=== PATIENT | female | born 1945 | race Caucasian/White ===

== ENCOUNTER 2019-12-09 07:21 | Outpatient (RCR) | payer MEDICARE, SELFPAY ==
[2019-09-11 09:09] LABS: Basophils Percent Auto 0.5 % (0.2-1.2); Eosinophils Absolute Auto 0.1 K/mm3 (0-0.3); Eosinophils Percent Auto 1.9 % (0-4.4); Hematocrit 43.9 % (37.0-47.0); Immature Granulocyte Absolute 0.01 K/mm3 (0.00-0.031); Immature Granulocyte Percent A 0.2 % (0-0.5); Lymphocytes Absolute Auto 0.91 K/mm3 (0.9-3.2); Lymphocytes Percent Auto 21.7 % (18.3-44.2); Mean Corpuscular HGB Conc 31.9 g/dl (32-36); Mean Corpuscular Hemoglobin 29.6 pg (26-34); Mean Corpuscular Volume 92.8 fl (80-100); Mean Platelet Volume 11.6 fl (7.4-10.4); Monocytes Absolute Auto 0.5 K/mm3 (0.1-0.6); Monocytes Percent Auto 12.1 % (2.6-8.5); Neutrophils Absolute Auto 2.7 K/mm3 (1.3-6.7); Neutrophils Percent Auto 63.6 % (45.5-73.1); Platelet Count Result 165 k/mm3 (150-375); Red Blood Count 4.73 M/mm3 (4.2-5.4); White Blood Count 4.2 K/mm3 (4.5-10.0)
[2019-09-11 09:38] LABS: Albumin Level 3.9 g/dL (3.5-5.1); Blood Urea Nitrogen 14 mg/dL (7-17); Calcium 9.5 mg/dL (8.4-10.2); Carbon Dioxide 26 mmol/L (22-30); Chloride 104 mmol/L (98-107); Estimated Glomerular Filt Rate > 60; Glucose 170 mg/dL (65-105); Phosphorus 3.1 mg/dL (2.5-4.5); Potassium 3.8 mmol/L (3.4-5.0); Sodium 138 mmol/L (137-145)
[2019-09-13 10:09] LABS: Tacrolimus Prograf 2.3 mcg/L
[2019-10-14 08:10] LABS: Basophils Percent Auto 0.7 % (0.2-1.2); Eosinophils Absolute Auto 0.1 K/mm3 (0-0.3); Eosinophils Percent Auto 2.7 % (0-4.4); Hematocrit 42.1 % (37.0-47.0); Hemoglobin 13.4 g/dL (12.0-15.0); Immature Granulocyte Absolute 0.01 K/mm3 (0.00-0.031); Immature Granulocyte Percent A 0.2 % (0-0.5); Lymphocytes Absolute Auto 1.16 K/mm3 (0.9-3.2); Lymphocytes Percent Auto 28.5 % (18.3-44.2); Mean Corpuscular HGB Conc 31.8 g/dl (32-36); Mean Corpuscular Hemoglobin 29.7 pg (26-34); Mean Corpuscular Volume 93.3 fl (80-100); Mean Platelet Volume 11.1 fl (7.4-10.4); Monocytes Absolute Auto 0.3 K/mm3 (0.1-0.6); Monocytes Percent Auto 7.9 % (2.6-8.5); Neutrophils Absolute Auto 2.4 K/mm3 (1.3-6.7); Platelet Count Result 166 k/mm3 (150-375); Red Blood Count 4.51 M/mm3 (4.2-5.4); Red Cell Distribution Width 13.6 % (11.5-14.5); White Blood Count 4.1 K/mm3 (4.5-10.0)
[2019-10-14 08:34] LABS: Blood Urea Nitrogen 15 mg/dL (7-17); Calcium 9.9 mg/dL (8.4-10.2); Carbon Dioxide 25 mmol/L (22-30); Chloride 103 mmol/L (98-107); Estimated Glomerular Filt Rate > 60; Glucose 157 mg/dL (65-105); Phosphorus 3.5 mg/dL (2.5-4.5); Potassium 4.1 mmol/L (3.4-5.0); Sodium 136 mmol/L (137-145)
[2019-10-17 06:14] LABS: Tacrolimus Prograf 3.8 mcg/L
[2019-12-09 08:03] LABS: Alanine Aminotransferase 16 U/L (4-35); Albumin Level 4.2 g/dL (3.5-5.1); Alkaline Phosphatase 48 U/L (38-126); Aspartate Amino Transferase 26 U/L (14-36); Bilirubin,Total 0.5 mg/dL (0.2-1.3); Blood Urea Nitrogen 12 mg/dL (7-17); Calcium 10.2 mg/dL (8.4-10.2); Carbon Dioxide 27 mmol/L (22-30); Chloride 104 mmol/L (98-107); Cholesterol 133 mg/dL (0-200); Estimated Glomerular Filt Rate > 60; Glucose 128 mg/dL (65-105); HDL Direct 79 mg/dL; Phosphorus 3.6 mg/dL (2.5-4.5); Potassium 4.2 mmol/L (3.4-5.0); Sodium 141 mmol/L (137-145); Triglycerides 45 mg/dL (<150)
[2019-12-09 08:04] LABS: Basophils Percent Auto 0.9 % (0.2-1.2); Eosinophils Absolute Auto 0.2 K/mm3 (0-0.3); Eosinophils Percent Auto 3.7 % (0-4.4); Hematocrit 45.1 % (37.0-47.0); Hemoglobin 14.8 g/dL (12.0-15.0); Lymphocytes Absolute Auto 1.39 K/mm3 (0.9-3.2); Lymphocytes Percent Auto 31.9 % (18.3-44.2); Mean Corpuscular HGB Conc 32.8 g/dl (32-36); Mean Corpuscular Hemoglobin 29.9 pg (26-34); Mean Corpuscular Volume 91.1 fl (80-100); Monocytes Absolute Auto 0.3 K/mm3 (0.1-0.6); Monocytes Percent Auto 6.4 % (2.6-8.5); Neutrophils Absolute Auto 2.5 K/mm3 (1.3-6.7); Neutrophils Percent Auto 57.1 % (45.5-73.1); Platelet Count Result 175 k/mm3 (150-375); Red Blood Count 4.95 M/mm3 (4.2-5.4); Red Cell Distribution Width 13.3 % (11.5-14.5); White Blood Count 4.4 K/mm3 (4.5-10.0)
[2019-12-09 08:13] LABS: LDL Cholesterol Direct 50 mg/dL
[2019-12-09 08:42] LABS: Hemoglobin A1C 7.4 % (<5.7)
[2019-12-11 00:48] LABS: Tacrolimus Prograf 3.9 mcg/L
== END 2019-12-10 23:59 | disposition home or self-care (01) ==
LOC: ANHLAB 07:21
PROVIDERS: PCP Family Medicine
DX: Z94.0 Kidney transplant status (principal); E78.49 Other hyperlipidemia; Z79.899 Other long term (current) drug therapy
CPT/HCPCS: 36415; 80053; 80061; 80069; 80197; 83036; 84100; 85025

== ENCOUNTER 2020-06-17 08:35 | Emergency (ER) | payer MEDICARE, SELFPAY ==
[2020-06-17 08:50] VITALS: BP 145/56; PULSE 78; RESP 18; TEMP 36.6; O2SAT 98
--- NOTE | 2020-06-17 08:52 | ED.UPPEXIN ---
HPI - Extremity Injury (Upper) General Chief Complaint: Extremity Injury, Upper Stated Complaint: Swollen/sore arm Source: patient and RN notes reviewed Mode of arrival: ambulatory Limitations: no limitations History of Present Illness HPI narrative: The patient, who is a right-handed diabetic with history of renal transplant, presents with left wrist pain. Patient states she has had a 1 day history of increasing radial> ulnar wrist pain that is mild, worse with motion, better at rest. She is been gardening all week, and has similar discomfort in her ankle about a year ago whereupon she had MRI showing ankle sprain and osteopenia. The wrist pain has no direct injury, numbness/weakness, streaking; and the proximal forearm fistula is doing well. Related Data Home Medications Medication Instructions Recorded Confirmed insulin lispro 100 unit/mL 15 unit SUB-Q DAILY ml 04/21/20 subcutaneous pen insulin lispro protamine-lispro See Rx Instructions .ROUTE .COMPLEX 04/21/20 100 unit/mL (75-25) subcutaneous pen mycophenolate sodium PO 06/17/20 prednisone 06/17/20 tacrolimus 06/17/20 valsartan 06/17/20 Allergies Allergy/AdvReac Type Severity Reaction Status Date / Time labetalol Allergy Unknown head itches Verified 04/13/20 15:40 Penicillins Allergy Unknown Nausea Verified 04/13/20 15:40 Review of Systems Review of Systems: Narrative: General/Constitutional: No weight loss,fever Eyes: N0: Redness,discharge Ears/Nose/Throat: No: Epistaxis,ear discharge Respiratory: Denies: Hemoptysis Gastrointestinal: No Vomiting, Bleeding-rectal Skin: No Lumps, eruption Neurologic: No Focal Weakness,Sz Hematologic: Denies: Petechiae/Purpura Psychiatric: No: Suicida ideationl All Other Systems: Reviewed and Negative PMFSH Social History Social History Smoking status: Never smoker Second hand tobacco smoke exposure: No Alcohol intake: never Comments At time of signature, agree with nursing past medical, surgical, social and family history. There is no relevant family history pertinent to the presenting complaint Exam Narrative: Exam Narrative: General Appearance: Well appearing, Well nourished, No distress EYE: PERRLA, EOMI, Conjunctiva clear Ears: External ear normal, Auditory canal normal Nose: Normal nose, Nares clear Mouth/Throat: Normal appearing, Normal lips Neck: Supple Respiratory: Airway patent, No respiratory distress MS wrist: Normal strength (mostly intact, limited flexion/extension by pain), Tenderness radial styloid> ulnar styloid, with mild decreased ROM,Scant swelling diffusely, Other : Positive Maryjane no anterior drawer, no collateral laxity Skin: Left forearm AV fistula with good thrill, warm, Dry, Normal color Neurological: A&O x3, Speech clear, CN II-XII intact Psychiatric: Normal mood, Normal affect Course Vital Signs Vital signs: Vital Signs Temperature 97.9 F 06/17/20 08:50 Pulse Rate 78 06/17/20 08:50 Respiratory Rate 18 06/17/20 08:50 Blood Pressure 145/56 H 06/17/20 08:50 Pulse Oximetry 98 06/17/20 08:50 Temperature 97.9 F 06/17/20 08:50 Pulse Rate 78 06/17/20 08:50 Respiratory Rate 18 06/17/20 08:50 Blood Pressure 145/56 H 06/17/20 08:50 Pulse Oximetry 98 06/17/20 08:50 Discharge Plan Discharge Clinical Impression: Left wrist tendinitis Osteopenia Qualifiers: Osteopenia location: multiple sites Qualified Code(s): M85.89 - Other specified disorders of bone density and structure, multiple sites Patient Disposition: Home, Self-Care Condition: Stable Instructions: Tendinitis (ED) Prescriptions: New tramadol 50 mg tablet 50 mg PO Q6H PRN (Reason: pain) Qty: 15 RF: 1 prednisone 20 mg tablet 60 mg PO DAILY Qty: 6 RF: 0 No Action prednisone 2.5 mg tablet RF: 0 tacrolimus 1 mg capsule RF: 0 valsartan 160 mg tablet
== END 2020-06-17 09:14 | disposition home or self-care (01) ==
PROVIDERS: Emergency Provider Emergency Medicine; PCP Family Medicine
DX: M77.9 Enthesopathy, unspecified (principal); M85.80 Other specified disorders of bone density and structure, unspecified site; E78.00 Pure hypercholesterolemia, unspecified; I10 Essential (primary) hypertension; E11.9 Type 2 diabetes mellitus without complications; Z94.0 Kidney transplant status
CPT/HCPCS: 99213; G0463

== ENCOUNTER 2020-07-20 07:27 | Outpatient (RCR) | payer MEDICARE, SELFPAY ==
[2020-04-21 07:50] LABS: Basophils Percent Auto 0.4 % (0.2-1.2); Eosinophils Absolute Auto 0.1 K/mm3 (0-0.3); Eosinophils Percent Auto 1.8 % (0-4.4); Hematocrit 45.1 % (37.0-47.0); Hemoglobin 14.8 g/dL (12.0-15.0); Immature Granulocyte Absolute 0.01 K/mm3 (0.00-0.031); Immature Granulocyte Percent A 0.2 % (0-0.5); Lymphocytes Absolute Auto 1.55 K/mm3 (0.9-3.2); Lymphocytes Percent Auto 34.1 % (18.3-44.2); Mean Corpuscular HGB Conc 32.8 g/dl (32-36); Mean Corpuscular Hemoglobin 30.2 pg (26-34); Mean Platelet Volume 11.2 fl (7.4-10.4); Monocytes Absolute Auto 0.3 K/mm3 (0.1-0.6); Monocytes Percent Auto 6.6 % (2.6-8.5); Neutrophils Absolute Auto 2.6 K/mm3 (1.3-6.7); Neutrophils Percent Auto 56.9 % (45.5-73.1); Platelet Count Result 172 k/mm3 (150-375); Red Cell Distribution Width 13.2 % (11.5-14.5); White Blood Count 4.6 K/mm3 (4.5-10.0)
[2020-04-21 08:03] LABS: Alanine Aminotransferase 15 U/L (4-35); Albumin Level 4.3 g/dL (3.5-5.1); Alkaline Phosphatase 48 U/L (38-126); Aspartate Amino Transferase 25 U/L (14-36); Bilirubin,Total 0.5 mg/dL (0.2-1.3); Blood Urea Nitrogen 13 mg/dL (7-17); Carbon Dioxide 27 mmol/L (22-30); Chloride 106 mmol/L (98-107); Cholesterol 130 mg/dL (0-200); Estimated Glomerular Filt Rate > 60; Glucose 170 mg/dL (65-105); HDL Direct 70 mg/dL; Hemoglobin A1C 7.8 % (<5.7); Phosphorus 3.1 mg/dL (2.5-4.5); Potassium 4.1 mmol/L (3.4-5.0); Sodium 139 mmol/L (137-145); Triglycerides 56 mg/dL (<150)
[2020-04-21 08:15] LABS: LDL Cholesterol Direct 50 mg/dL
[2020-04-23 17:44] LABS: Tacrolimus Prograf 3.7 mcg/L
[2020-05-19 08:04] LABS: Basophils Percent Auto 0.5 % (0.2-1.2); Eosinophils Absolute Auto 0.1 K/mm3 (0-0.3); Hematocrit 46.2 % (37.0-47.0); Lymphocytes Percent Auto 34.5 % (18.3-44.2); Mean Corpuscular HGB Conc 32.5 g/dl (32-36); Mean Corpuscular Hemoglobin 30.1 pg (26-34); Mean Corpuscular Volume 92.8 fl (80-100); Mean Platelet Volume 11.1 fl (7.4-10.4); Monocytes Absolute Auto 0.3 K/mm3 (0.1-0.6); Monocytes Percent Auto 6.9 % (2.6-8.5); Neutrophils Absolute Auto 2.4 K/mm3 (1.3-6.7); Neutrophils Percent Auto 55.1 % (45.5-73.1); Platelet Count Result 155 k/mm3 (150-375); Red Blood Count 4.98 M/mm3 (4.2-5.4); Red Cell Distribution Width 13.2 % (11.5-14.5); White Blood Count 4.4 K/mm3 (4.5-10.0)
[2020-05-19 08:24] LABS: Alanine Aminotransferase 17 U/L (4-35); Albumin Level 4.4 g/dL (3.5-5.1); Alkaline Phosphatase 43 U/L (38-126); Anion Gap 10.2 mmol/L (7-16); Aspartate Amino Transferase 26 U/L (14-36); Bilirubin,Total 0.4 mg/dL (0.2-1.3); Blood Urea Nitrogen 14 mg/dL (7-17); Calcium 10.1 mg/dL (8.4-10.2); Carbon Dioxide 27 mmol/L (22-30); Chloride 106 mmol/L (98-107); Cholesterol 139 mg/dL (0-200); Estimated Glomerular Filt Rate > 60; Glucose 160 mg/dL (65-105); HDL Direct 77 mg/dL; Phosphorus 3.3 mg/dL (2.5-4.5); Potassium 4.2 mmol/L (3.4-5.0); Sodium 139 mmol/L (137-145); Triglycerides 48 mg/dL (<150)
[2020-05-19 08:34] LABS: Hemoglobin A1C 7.4 % (<5.7)
[2020-05-19 08:34] LABS: LDL Cholesterol Direct 53 mg/dL
[2020-05-24 11:35] LABS: Tacrolimus Prograf 3.7 mcg/L
[2020-06-10 07:57] LABS: Basophils Percent Auto 0.6 % (0.2-1.2); Eosinophils Absolute Auto 0.1 K/mm3 (0-0.3); Eosinophils Percent Auto 2.2 % (0-4.4); Hematocrit 44.8 % (37.0-47.0); Hemoglobin 14.4 g/dL (12.0-15.0); Immature Granulocyte Absolute 0.01 K/mm3 (0.00-0.031); Immature Granulocyte Percent A 0.2 % (0-0.5); Lymphocytes Absolute Auto 1.72 K/mm3 (0.9-3.2); Lymphocytes Percent Auto 37.1 % (18.3-44.2); Mean Corpuscular HGB Conc 32.1 g/dl (32-36); Mean Corpuscular Hemoglobin 29.5 pg (26-34); Mean Corpuscular Volume 91.8 fl (80-100); Mean Platelet Volume 11.1 fl (7.4-10.4); Monocytes Absolute Auto 0.3 K/mm3 (0.1-0.6); Neutrophils Absolute Auto 2.5 K/mm3 (1.3-6.7); Neutrophils Percent Auto 53.9 % (45.5-73.1); Platelet Count Result 162 k/mm3 (150-375); Red Blood Count 4.88 M/mm3 (4.2-5.4); White Blood Count 4.6 K/mm3 (4.5-10.0)
[2020-06-10 08:11] LABS: Albumin Level 4.3 g/dL (3.5-5.1); Anion Gap 6 mmol/L (8-16); Blood Urea Nitrogen 14 mg/dL (7-17); Carbon Dioxide 26 mmol/L (22-30); Chloride 108 mmol/L (98-107); Estimated Glomerular Filt Rate > 60; Glucose 95 mg/dL (65-105); Phosphorus 3.2 mg/dL (2.5-4.5); Potassium 3.9 mmol/L (3.4-5.0); Sodium 140 mmol/L (137-145)
[2020-07-20 08:12] LABS: Basophils Percent Auto 0.4 % (0.2-1.2); Eosinophils Absolute Auto 0.1 K/mm3 (0-0.3); Eosinophils Percent Auto 1.8 % (0-4.4); Hematocrit 44.5 % (37.0-47.0); Hemoglobin 14.2 g/dL (12.0-15.0); Immature Granulocyte Absolute 0.01 K/mm3 (0.00-0.031); Immature Granulocyte Percent A 0.2 % (0-0.5); Lymphocytes Absolute Auto 1.22 K/mm3 (0.9-3.2); Lymphocytes Percent Auto 24.7 % (18.3-44.2); Mean Corpuscular HGB Conc 31.9 g/dl (32-36); Mean Corpuscular Hemoglobin 29.5 pg (26-34); Mean Corpuscular Volume 92.5 fl (80-100); Mean Platelet Volume 11.2 fl (7.4-10.4); Monocytes Absolute Auto 0.3 K/mm3 (0.1-0.6); Monocytes Percent Auto 5.7 % (2.6-8.5); Neutrophils Absolute Auto 3.3 K/mm3 (1.3-6.7); Neutrophils Percent Auto 67.2 % (45.5-73.1); Platelet Count Result 155 k/mm3 (150-375); Red Blood Count 4.81 M/mm3 (4.2-5.4); White Blood Count 4.9 K/mm3 (4.5-10.0)
[2020-07-20 08:34] LABS: Albumin Level 4.1 g/dL (3.5-5.1); Anion Gap 5 mmol/L (8-16); Blood Urea Nitrogen 12 mg/dL (7-17); Calcium 10.4 mg/dL (8.4-10.2); Carbon Dioxide 30 mmol/L (22-30); Chloride 107 mmol/L (98-107); Estimated Glomerular Filt Rate > 60; Glucose 126 mg/dL (65-105); Phosphorus 3.9 mg/dL (2.5-4.5); Potassium 4.1 mmol/L (3.4-5.0); Sodium 142 mmol/L (137-145)
[2020-07-22 18:50] LABS: Tacrolimus Prograf 3.4 mcg/L
== END 2020-07-20 23:59 | disposition home or self-care (01) ==
LOC: ANHLAB 07:27
PROVIDERS: Physician Assistant; PCP Family Medicine
DX: E78.49 Other hyperlipidemia (principal); Z94.0 Kidney transplant status; Z79.899 Other long term (current) drug therapy
CPT/HCPCS: 36415; 80053; 80061; 80069; 80197; 83036; 84100; 84443; 85025

== ENCOUNTER 2020-10-20 07:15 | Outpatient (RCR) | payer MEDICARE, SELFPAY ==
[2020-08-18 08:04] LABS: Basophils Percent Auto 0.7 % (0.2-1.2); Eosinophils Absolute Auto 0.1 K/mm3 (0-0.3); Eosinophils Percent Auto 1.8 % (0-4.4); Hematocrit 44.3 % (37.0-47.0); Hemoglobin 14.3 g/dL (12.0-15.0); Immature Granulocyte Absolute 0.01 K/mm3 (0.00-0.031); Immature Granulocyte Percent A 0.2 % (0-0.5); Lymphocytes Absolute Auto 1.56 K/mm3 (0.9-3.2); Lymphocytes Percent Auto 34.7 % (18.3-44.2); Mean Corpuscular HGB Conc 32.3 g/dl (32-36); Mean Corpuscular Hemoglobin 30.2 pg (26-34); Mean Corpuscular Volume 93.7 fl (80-100); Mean Platelet Volume 11.1 fl (7.4-10.4); Monocytes Absolute Auto 0.3 K/mm3 (0.1-0.6); Monocytes Percent Auto 6.4 % (2.6-8.5); Neutrophils Absolute Auto 2.5 K/mm3 (1.3-6.7); Neutrophils Percent Auto 56.2 % (45.5-73.1); Platelet Count Result 153 k/mm3 (150-375); Red Blood Count 4.73 M/mm3 (4.2-5.4); Red Cell Distribution Width 13.3 % (11.5-14.5); White Blood Count 4.5 K/mm3 (4.5-10.0)
[2020-08-18 08:15] LABS: Hemoglobin A1C 7.3 % (<5.7)
[2020-08-18 08:21] LABS: Alanine Aminotransferase 17 U/L (4-35); Alkaline Phosphatase 46 U/L (38-126); Anion Gap 4 mmol/L (8-16); Aspartate Amino Transferase 28 U/L (14-36); Bilirubin,Total 0.5 mg/dL (0.2-1.3); Blood Urea Nitrogen 14 mg/dL (7-17); Calcium 9.9 mg/dL (8.4-10.2); Carbon Dioxide 30 mmol/L (22-30); Chloride 106 mmol/L (98-107); Cholesterol 121 mg/dL (0-200); Estimated Glomerular Filt Rate > 60; Glucose 161 mg/dL (65-105); HDL Direct 68 mg/dL; Phosphorus 3.4 mg/dL (2.5-4.5); Potassium 3.9 mmol/L (3.4-5.0); Sodium 140 mmol/L (137-145); Triglycerides 59 mg/dL (<150)
[2020-08-18 08:31] LABS: LDL Cholesterol Direct 45 mg/dL
[2020-08-20 20:36] LABS: Tacrolimus Prograf 2.9 mcg/L
[2020-09-15 07:53] LABS: Basophils Percent Auto 0.7 % (0.2-1.2); Eosinophils Absolute Auto 0.1 K/mm3 (0-0.3); Eosinophils Percent Auto 1.8 % (0-4.4); Hemoglobin 14.1 g/dL (12.0-15.0); Immature Granulocyte Absolute 0.01 K/mm3 (0.00-0.031); Immature Granulocyte Percent A 0.2 % (0-0.5); Lymphocytes Absolute Auto 1.39 K/mm3 (0.9-3.2); Lymphocytes Percent Auto 31.5 % (18.3-44.2); Mean Corpuscular Hemoglobin 29.9 pg (26-34); Mean Corpuscular Volume 93.2 fl (80-100); Mean Platelet Volume 10.4 fl (7.4-10.4); Monocytes Absolute Auto 0.3 K/mm3 (0.1-0.6); Monocytes Percent Auto 6.8 % (2.6-8.5); Neutrophils Absolute Auto 2.6 K/mm3 (1.3-6.7); Platelet Count Result 152 k/mm3 (150-375); Red Blood Count 4.72 M/mm3 (4.2-5.4); Red Cell Distribution Width 13.5 % (11.5-14.5); White Blood Count 4.4 K/mm3 (4.5-10.0)
[2020-09-15 08:02] LABS: Hemoglobin A1C 7.5 % (<5.7)
[2020-09-15 08:05] LABS: Alanine Aminotransferase 18 U/L (4-35); Albumin Level 4.1 g/dL (3.5-5.1); Alkaline Phosphatase 42 U/L (38-126); Anion Gap 4 mmol/L (8-16); Aspartate Amino Transferase 28 U/L (14-36); Bilirubin,Total 0.4 mg/dL (0.2-1.3); Blood Urea Nitrogen 12 mg/dL (7-17); Calcium 9.9 mg/dL (8.4-10.2); Carbon Dioxide 30 mmol/L (22-30); Chloride 106 mmol/L (98-107); Estimated Glomerular Filt Rate > 60; Glucose 187 mg/dL (65-105); Phosphorus 3.3 mg/dL (2.5-4.5); Potassium 4.4 mmol/L (3.4-5.0); Sodium 140 mmol/L (137-145)
[2020-09-17 22:05] LABS: Tacrolimus Prograf 2.9 mcg/L
[2020-10-20 07:54] LABS: Basophils Percent Auto 0.4 % (0.2-1.2); Eosinophils Absolute Auto 0.1 K/mm3 (0-0.3); Eosinophils Percent Auto 1.9 % (0-4.4); Hematocrit 42.6 % (37.0-47.0); Hemoglobin 13.8 g/dL (12.0-15.0); Immature Granulocyte Absolute 0.01 K/mm3 (0.00-0.031); Immature Granulocyte Percent A 0.2 % (0-0.5); Lymphocytes Absolute Auto 1.32 K/mm3 (0.9-3.2); Lymphocytes Percent Auto 25.3 % (18.3-44.2); Mean Corpuscular HGB Conc 32.4 g/dl (32-36); Mean Corpuscular Hemoglobin 29.7 pg (26-34); Mean Corpuscular Volume 91.8 fl (80-100); Mean Platelet Volume 10.8 fl (7.4-10.4); Monocytes Absolute Auto 0.4 K/mm3 (0.1-0.6); Monocytes Percent Auto 7.3 % (2.6-8.5); Neutrophils Absolute Auto 3.4 K/mm3 (1.3-6.7); Neutrophils Percent Auto 64.9 % (45.5-73.1); Platelet Count Result 177 k/mm3 (150-375); Red Blood Count 4.64 M/mm3 (4.2-5.4); Red Cell Distribution Width 13.2 % (11.5-14.5); White Blood Count 5.2 K/mm3 (4.5-10.0)
[2020-10-20 08:10] LABS: Albumin Level 3.9 g/dL (3.5-5.1); Anion Gap 5 mmol/L (8-16); Blood Urea Nitrogen 12 mg/dL (7-17); Calcium 9.8 mg/dL (8.4-10.2); Carbon Dioxide 29 mmol/L (22-30); Chloride 105 mmol/L (98-107); Estimated Glomerular Filt Rate > 60; Glucose 227 mg/dL (65-105); Phosphorus 3.2 mg/dL (2.5-4.5); Potassium 4.1 mmol/L (3.4-5.0); Sodium 139 mmol/L (137-145)
[2020-10-20 08:41] LABS: Free T4 Free Thyroxine 1.14 ng/mL (0.78-2.19)
[2020-10-23 00:05] LABS: Tacrolimus Prograf 2.5 mcg/L
== END 2020-11-16 23:59 | disposition home or self-care (01) ==
LOC: ANHLAB 07:15
PROVIDERS: PCP Family Medicine; Referring Provider Internal Medicine Endocrinology, Diabetes & Metabolism
DX: E10.65 Type 1 diabetes mellitus with hyperglycemia (principal); E78.2 Mixed hyperlipidemia; Z94.0 Kidney transplant status; Z79.899 Other long term (current) drug therapy
CPT/HCPCS: 36415; 80053; 80061; 80069; 80197; 83036; 84100; 84439; 84443; 85025

== ENCOUNTER 2021-01-19 07:25 | Outpatient (RCR) | payer MEDICARE, SELFPAY ==
[2020-11-17 07:42] LABS: Basophils Percent Auto 0.4 % (0.2-1.2); Eosinophils Absolute Auto 0.1 K/mm3 (0-0.3); Eosinophils Percent Auto 2.4 % (0-4.4); Hematocrit 45.8 % (37.0-47.0); Hemoglobin 14.9 g/dL (12.0-15.0); Immature Granulocyte Absolute 0.01 K/mm3 (0.00-0.031); Immature Granulocyte Percent A 0.2 % (0-0.5); Lymphocytes Absolute Auto 1.39 K/mm3 (0.9-3.2); Lymphocytes Percent Auto 30.9 % (18.3-44.2); Mean Corpuscular HGB Conc 32.5 g/dl (32-36); Mean Corpuscular Volume 92.2 fl (80-100); Mean Platelet Volume 10.8 fl (7.4-10.4); Monocytes Absolute Auto 0.3 K/mm3 (0.1-0.6); Monocytes Percent Auto 7.3 % (2.6-8.5); Neutrophils Absolute Auto 2.6 K/mm3 (1.3-6.7); Neutrophils Percent Auto 58.8 % (45.5-73.1); Platelet Count Result 158 k/mm3 (150-375); Red Blood Count 4.97 M/mm3 (4.2-5.4); Red Cell Distribution Width 13.1 % (11.5-14.5); White Blood Count 4.5 K/mm3 (4.5-10.0)
[2020-11-17 07:47] LABS: Alanine Aminotransferase 18 U/L (4-35); Alkaline Phosphatase 49 U/L (38-126); Anion Gap 5 mmol/L (8-16); Aspartate Amino Transferase 25 U/L (14-36); Bilirubin,Total 0.6 mg/dL (0.2-1.3); Blood Urea Nitrogen 14 mg/dL (7-17); Calcium 10.2 mg/dL (8.4-10.2); Carbon Dioxide 30 mmol/L (22-30); Chloride 103 mmol/L (98-107); Cholesterol 131 mg/dL (0-200); Estimated Glomerular Filt Rate > 60; Glucose 227 mg/dL (65-105); HDL Direct 71 mg/dL; Phosphorus 3.4 mg/dL (2.5-4.5); Potassium 4.1 mmol/L (3.4-5.0); Sodium 138 mmol/L (137-145); Triglycerides 65 mg/dL (<150)
[2020-11-17 07:57] LABS: LDL Cholesterol Direct 46 mg/dL
[2020-11-19 07:28] LABS: Tacrolimus Prograf 3.2 mcg/L
[2020-12-15 07:41] LABS: Basophils Percent Auto 0.6 % (0.2-1.2); Eosinophils Absolute Auto 0.2 K/mm3 (0-0.3); Eosinophils Percent Auto 3.3 % (0-4.4); Hematocrit 44.7 % (37.0-47.0); Hemoglobin 14.5 g/dL (12.0-15.0); Immature Granulocyte Absolute 0.01 K/mm3 (0.00-0.031); Immature Granulocyte Percent A 0.2 % (0-0.5); Lymphocytes Absolute Auto 1.57 K/mm3 (0.9-3.2); Lymphocytes Percent Auto 30.8 % (18.3-44.2); Mean Corpuscular HGB Conc 32.4 g/dl (32-36); Mean Corpuscular Hemoglobin 29.7 pg (26-34); Mean Corpuscular Volume 91.6 fl (80-100); Monocytes Absolute Auto 0.4 K/mm3 (0.1-0.6); Monocytes Percent Auto 7.3 % (2.6-8.5); Neutrophils Absolute Auto 2.9 K/mm3 (1.3-6.7); Neutrophils Percent Auto 57.8 % (45.5-73.1); Platelet Count Result 162 k/mm3 (150-375); Red Blood Count 4.88 M/mm3 (4.2-5.4); Red Cell Distribution Width 13.3 % (11.5-14.5); White Blood Count 5.1 K/mm3 (4.5-10.0)
[2020-12-15 07:56] LABS: Alanine Aminotransferase 16 U/L (4-35); Albumin Level 4.1 g/dL (3.5-5.1); Alkaline Phosphatase 42 U/L (38-126); Anion Gap 4 mmol/L (8-16); Aspartate Amino Transferase 26 U/L (14-36); Bilirubin,Total 0.5 mg/dL (0.2-1.3); Blood Urea Nitrogen 14 mg/dL (7-17); Calcium 9.4 mg/dL (8.4-10.2); Carbon Dioxide 28 mmol/L (22-30); Chloride 107 mmol/L (98-107); Cholesterol 137 mg/dL (0-200); Estimated Glomerular Filt Rate > 60; Glucose 157 mg/dL (65-105); HDL Direct 76 mg/dL; Phosphorus 3.6 mg/dL (2.5-4.5); Potassium 4.1 mmol/L (3.4-5.0); Sodium 139 mmol/L (137-145); Triglycerides 54 mg/dL (<150)
[2020-12-15 07:58] LABS: Hemoglobin A1C 7.5 % (<5.7)
[2020-12-15 08:05] LABS: LDL Cholesterol Direct 45 mg/dL
[2020-12-17 17:59] LABS: Tacrolimus Prograf 3.5 mcg/L
[2021-01-19 07:54] LABS: Basophils Percent Auto 0.6 % (0.2-1.2); Eosinophils Absolute Auto 0.1 K/mm3 (0-0.3); Eosinophils Percent Auto 2.3 % (0-4.4); Hematocrit 43.3 % (37.0-47.0); Hemoglobin 13.9 g/dL (12.0-15.0); Immature Granulocyte Absolute 0.01 K/mm3 (0.00-0.031); Immature Granulocyte Percent A 0.2 % (0-0.5); Lymphocytes Absolute Auto 1.48 K/mm3 (0.9-3.2); Lymphocytes Percent Auto 30.3 % (18.3-44.2); Mean Corpuscular HGB Conc 32.1 g/dl (32-36); Mean Corpuscular Hemoglobin 29.6 pg (26-34); Mean Corpuscular Volume 92.3 fl (80-100); Mean Platelet Volume 11.1 fl (7.4-10.4); Monocytes Absolute Auto 0.4 K/mm3 (0.1-0.6); Monocytes Percent Auto 7.6 % (2.6-8.5); Neutrophils Absolute Auto 2.9 K/mm3 (1.3-6.7); Platelet Count Result 152 k/mm3 (150-375); Red Blood Count 4.69 M/mm3 (4.2-5.4); Red Cell Distribution Width 13.3 % (11.5-14.5); White Blood Count 4.9 K/mm3 (4.5-10.0)
[2021-01-19 08:08] LABS: Anion Gap 4 mmol/L (8-16); Blood Urea Nitrogen 15 mg/dL (7-17); Carbon Dioxide 27 mmol/L (22-30); Chloride 108 mmol/L (98-107); Estimated Glomerular Filt Rate > 60; Glucose 138 mg/dL (65-105); Phosphorus 3.4 mg/dL (2.5-4.5); Sodium 139 mmol/L (137-145)
[2021-01-21 15:09] LABS: Tacrolimus Prograf 3.3 mcg/L
== END 2021-02-15 23:59 | disposition home or self-care (01) ==
LOC: ANHLAB 07:25
PROVIDERS: Family Provider Family Medicine; PCP Family Medicine
DX: Z94.0 Kidney transplant status (principal); E10.65 Type 1 diabetes mellitus with hyperglycemia; Z79.899 Other long term (current) drug therapy
CPT/HCPCS: 36415; 80053; 80061; 80069; 80197; 83036; 84100; 85025

== ENCOUNTER 2021-03-31 12:43 | Outpatient (CLI) | payer MEDICARE, SELFPAY ==
--- NOTE | 2021-03-31 12:54 | ECHO_ITS ---
Patient Info Name: Lisy Pandey Age: 75 years : 1945 Gender: Female Ht: 66 in Wt: 145 lbs BSA: 1.76 m2 HR: 66 bpm BP: 171 / 74 mmHg Technical Quality: Good Exam Date: 03/31/2021 1:15 PM Exam Location: [facility] Patient Status: Outpatient Admit Date: 03/31/2021 Staff Ordering Physician: Osbaldo Huff MD Cataloging Assistant: Lata Perez RDCS Attending Provider: Osbaldo Huff MD Referring Physician: Daria ALANIZ; Exam Type: CA echo doppler color flow Study Info Indications - nonrheumatic aortic valve disorder Complete two-dimensional, color flow and Doppler transthoracic echocardiogram is performed. Summary 1. Complete two-dimensional, color flow and Doppler transthoracic echocardiogram is performed. 2. Left ventricular chamber dimension is normal. 3. Left ventricular systolic function is hyperdynamic, estimated at >70%. 4. There is mildly increased left ventricular wall thickness. 5. The left ventricular diastolic function is grade I diastolic dysfunction. 6. E/e' 14 is mildly elevated. 7. Left atrial chamber dimension is mildly enlarged. 8. There is trace mitral valve regurgitation. 9. No pulmonary hypertension, estimated pulmonary arterial systolic pressure is 35 mmHg. 10. There is loculated right sided small to moderate pericardial effusion measuring up to 1.1 cm. This is seen only in parasternal images but not in subcostal images. No cardiac tamponade. Left Ventricle E/e' 14 is mildly elevated. Left ventricular chamber dimension is normal. Left ventricular systolic function is hyperdynamic, estimated at >70%. There is mildly increased left ventricular wall thickness. The left ventricular diastolic function is grade I diastolic dysfunction. Right Ventricle Right ventricular chamber dimension is normal. Right ventricular systolic function is normal. Left Atria Left atrial chamber dimension is mildly enlarged. Right Atria Right atrial chamber dimension is normal. Aortic Valve The aortic valve is trileaflet. There is no aortic valve stenosis. There is no aortic valve regurgitation. Pulmonic Valve There is no pulmonic regurgitation. Mitral Valve There is no mitral valve stenosis. There is trace mitral valve regurgitation. Tricuspid Valve There is no tricuspid valve regurgitation. No pulmonary hypertension, estimated pulmonary arterial systolic pressure is 35 mmHg. Pericardium/Pleural There is loculated right sided small to moderate pericardial effusion measuring up to 1.1 cm. This is seen only in parasternal images but not in subcostal images. No cardiac tamponade. Inferior Vena Cava Normal inferior vena cava with >50% collapse upon inspiration consistent with normal right atrial pressure, 5 mmHg. Aorta The aortic root size at the sinus of Valsalva is normal. Left Ventricular Outflow Tract Name Value Normal LVOT 2D LVOT Diameter 2.0 cm LVOT Doppler LVOT Peak Gradient 10 mmHg LVOT Mean Gradient 6 mmHg LVOT VTI 32 cm LVOT VTI/AV VTI Ratio
== END 2021-03-31 12:44 | disposition home or self-care (01) ==
LOC: ANHCARD 12:45
PROVIDERS: PCP Family Medicine; Visit Provider Family Medicine
DX: I35.8 Other nonrheumatic aortic valve disorders (principal)
CPT/HCPCS: 93306

== ENCOUNTER 2021-04-20 07:10 | Outpatient (RCR) | payer MEDICARE, SELFPAY ==
[2021-02-16 08:29] LABS: Basophils Percent Auto 0.4 % (0.2-1.2); Eosinophils Absolute Auto 0.1 K/mm3 (0-0.3); Eosinophils Percent Auto 2.7 % (0-4.4); Hematocrit 43.3 % (37.0-47.0); Hemoglobin 13.8 g/dL (12.0-15.0); Immature Granulocyte Absolute 0.02 K/mm3 (0.00-0.031); Immature Granulocyte Percent A 0.4 % (0-0.5); Lymphocytes Absolute Auto 1.23 K/mm3 (0.9-3.2); Lymphocytes Percent Auto 27.5 % (18.3-44.2); Mean Corpuscular HGB Conc 31.9 g/dl (32-36); Mean Corpuscular Hemoglobin 29.9 pg (26-34); Mean Corpuscular Volume 93.9 fl (80-100); Mean Platelet Volume 11.2 fl (7.4-10.4); Monocytes Absolute Auto 0.4 K/mm3 (0.1-0.6); Monocytes Percent Auto 8.3 % (2.6-8.5); Neutrophils Absolute Auto 2.7 K/mm3 (1.3-6.7); Neutrophils Percent Auto 60.7 % (45.5-73.1); Platelet Count Result 148 k/mm3 (150-375); Red Blood Count 4.61 M/mm3 (4.2-5.4); Red Cell Distribution Width 13.4 % (11.5-14.5); White Blood Count 4.5 K/mm3 (4.5-10.0)
[2021-02-16 08:39] LABS: Alanine Aminotransferase 15 U/L (4-35); Albumin Level 3.8 g/dL (3.5-5.1); Alkaline Phosphatase 38 U/L (38-126); Anion Gap 4 mmol/L (8-16); Aspartate Amino Transferase 22 U/L (14-36); Bilirubin,Total 0.3 mg/dL (0.2-1.3); Blood Urea Nitrogen 16 mg/dL (7-17); Calcium 9.8 mg/dL (8.4-10.2); Carbon Dioxide 26 mmol/L (22-30); Chloride 110 mmol/L (98-107); Cholesterol 118 mg/dL (0-200); Estimated Glomerular Filt Rate > 60; Glucose 126 mg/dL (65-105); HDL Direct 71 mg/dL; Phosphorus 3.5 mg/dL (2.5-4.5); Potassium 3.8 mmol/L (3.4-5.0); Sodium 140 mmol/L (137-145); Triglycerides 38 mg/dL (<150)
[2021-02-16 08:42] LABS: Hemoglobin A1C 8.2 % (<5.7)
[2021-02-16 08:50] LABS: LDL Cholesterol Direct 37 mg/dL
[2021-02-19 06:42] LABS: Tacrolimus Prograf 2.8 mcg/L
[2021-03-16 08:12] LABS: Basophils Percent Auto 0.7 % (0.2-1.2); Eosinophils Absolute Auto 0.1 K/mm3 (0-0.3); Hematocrit 42.7 % (37.0-47.0); Hemoglobin 13.9 g/dL (12.0-15.0); Immature Granulocyte Absolute 0.01 K/mm3 (0.00-0.031); Immature Granulocyte Percent A 0.2 % (0-0.5); Lymphocytes Absolute Auto 1.34 K/mm3 (0.9-3.2); Lymphocytes Percent Auto 29.1 % (18.3-44.2); Mean Corpuscular HGB Conc 32.6 g/dl (32-36); Mean Corpuscular Hemoglobin 29.8 pg (26-34); Mean Corpuscular Volume 91.6 fl (80-100); Mean Platelet Volume 11.1 fl (7.4-10.4); Monocytes Absolute Auto 0.3 K/mm3 (0.1-0.6); Monocytes Percent Auto 6.9 % (2.6-8.5); Neutrophils Absolute Auto 2.8 K/mm3 (1.3-6.7); Neutrophils Percent Auto 61.1 % (45.5-73.1); Platelet Count Result 158 k/mm3 (150-375); Red Blood Count 4.66 M/mm3 (4.2-5.4); Red Cell Distribution Width 13.2 % (11.5-14.5); White Blood Count 4.6 K/mm3 (4.5-10.0)
[2021-03-16 08:30] LABS: Anion Gap 5 mmol/L (8-16); Blood Urea Nitrogen 18 mg/dL (7-17); Calcium 9.9 mg/dL (8.4-10.2); Carbon Dioxide 28 mmol/L (22-30); Chloride 108 mmol/L (98-107); Estimated Glomerular Filt Rate > 60; Glucose 164 mg/dL (65-105); Phosphorus 3.4 mg/dL (2.5-4.5); Potassium 4.1 mmol/L (3.4-5.0); Sodium 141 mmol/L (137-145)
[2021-03-18 11:26] LABS: Tacrolimus Prograf 2.8 mcg/L
[2021-04-20 08:16] LABS: Basophils Percent Auto 0.5 % (0.2-1.2); Eosinophils Absolute Auto 0.1 K/mm3 (0-0.3); Eosinophils Percent Auto 1.7 % (0-4.4); Hematocrit 41.7 % (37.0-47.0); Hemoglobin 13.6 g/dL (12.0-15.0); Immature Granulocyte Absolute 0.02 K/mm3 (0.00-0.031); Immature Granulocyte Percent A 0.5 % (0-0.5); Lymphocytes Absolute Auto 1.45 K/mm3 (0.9-3.2); Lymphocytes Percent Auto 34.3 % (18.3-44.2); Mean Corpuscular HGB Conc 32.6 g/dl (32-36); Mean Corpuscular Volume 91.9 fl (80-100); Mean Platelet Volume 11.2 fl (7.4-10.4); Monocytes Absolute Auto 0.4 K/mm3 (0.1-0.6); Monocytes Percent Auto 8.3 % (2.6-8.5); Neutrophils Absolute Auto 2.3 K/mm3 (1.3-6.7); Neutrophils Percent Auto 54.7 % (45.5-73.1); Platelet Count Result 149 k/mm3 (150-375); Red Blood Count 4.54 M/mm3 (4.2-5.4); Red Cell Distribution Width 13.2 % (11.5-14.5); White Blood Count 4.2 K/mm3 (4.5-10.0)
[2021-04-20 08:25] LABS: Alanine Aminotransferase 13 U/L (4-35); Albumin Level 4.1 g/dL (3.5-5.1); Alkaline Phosphatase 38 U/L (38-126); Anion Gap 7 mmol/L (8-16); Aspartate Amino Transferase 23 U/L (14-36); Bilirubin,Total 0.6 mg/dL (0.2-1.3); Blood Urea Nitrogen 14 mg/dL (7-17); Calcium 9.9 mg/dL (8.4-10.2); Carbon Dioxide 24 mmol/L (22-30); Chloride 109 mmol/L (98-107); Cholesterol 121 mg/dL (0-200); Estimated Glomerular Filt Rate > 60; Glucose 201 mg/dL (65-105); HDL Direct 64 mg/dL; Phosphorus 2.9 mg/dL (2.5-4.5); Potassium 3.9 mmol/L (3.4-5.0); Sodium 140 mmol/L (137-145); Triglycerides 51 mg/dL (<150)
[2021-04-20 08:36] LABS: LDL Cholesterol Direct 43 mg/dL
[2021-04-20 09:18] LABS: Hemoglobin A1C 8.1 % (<5.7)
[2021-04-22 17:59] LABS: Tacrolimus Prograf 2.9 mcg/L
== END 2021-05-17 23:59 | disposition home or self-care (01) ==
LOC: ANHLAB 07:10
PROVIDERS: PCP Family Medicine; Visit Provider Internal Medicine
DX: E10.65 Type 1 diabetes mellitus with hyperglycemia (principal); Z94.0 Kidney transplant status; E78.2 Mixed hyperlipidemia; Z79.899 Other long term (current) drug therapy
CPT/HCPCS: 36415; 80053; 80061; 80069; 80197; 83036; 85025

== ENCOUNTER 2021-07-19 07:11 | Outpatient (RCR) | payer MEDICARE, SELFPAY ==
[2021-05-18 07:56] LABS: Basophils Percent Auto 0.7 % (0.2-1.2); Eosinophils Absolute Auto 0.1 K/mm3 (0-0.3); Eosinophils Percent Auto 2.5 % (0-4.4); Hematocrit 43.9 % (37.0-47.0); Hemoglobin 13.8 g/dL (12.0-15.0); Immature Granulocyte Absolute 0.01 K/mm3 (0.00-0.031); Immature Granulocyte Percent A 0.2 % (0-0.5); Lymphocytes Absolute Auto 1.46 K/mm3 (0.9-3.2); Lymphocytes Percent Auto 32.7 % (18.3-44.2); Mean Corpuscular HGB Conc 31.4 g/dl (32-36); Mean Corpuscular Hemoglobin 29.4 pg (26-34); Mean Corpuscular Volume 93.6 fl (80-100); Mean Platelet Volume 10.9 fl (7.4-10.4); Monocytes Absolute Auto 0.3 K/mm3 (0.1-0.6); Monocytes Percent Auto 6.7 % (2.6-8.5); Neutrophils Absolute Auto 2.6 K/mm3 (1.3-6.7); Neutrophils Percent Auto 57.2 % (45.5-73.1); Platelet Count Result 144 k/mm3 (150-375); Red Blood Count 4.69 M/mm3 (4.2-5.4); Red Cell Distribution Width 13.6 % (11.5-14.5); White Blood Count 4.5 K/mm3 (4.5-10.0)
[2021-05-18 08:08] LABS: Alanine Aminotransferase 18 U/L (4-35); Albumin Level 4.1 g/dL (3.5-5.1); Alkaline Phosphatase 41 U/L (38-126); Anion Gap 5 mmol/L (8-16); Aspartate Amino Transferase 26 U/L (14-36); Bilirubin,Total 0.5 mg/dL (0.2-1.3); Blood Urea Nitrogen 11 mg/dL (7-17); Calcium 9.8 mg/dL (8.4-10.2); Carbon Dioxide 27 mmol/L (22-30); Chloride 107 mmol/L (98-107); Cholesterol 128 mg/dL (0-200); Estimated Glomerular Filt Rate > 60; Glucose 160 mg/dL (65-110); HDL Direct 76 mg/dL; Phosphorus 3.5 mg/dL (2.5-4.5); Sodium 139 mmol/L (137-145); Triglycerides 42 mg/dL (<150)
[2021-05-18 08:19] LABS: LDL Cholesterol Direct 40 mg/dL
[2021-05-18 08:23] LABS: Hemoglobin A1C 8.2 % (<5.7)
[2021-05-21 08:50] LABS: Tacrolimus Prograf 3.1 mcg/L
[2021-06-15 08:31] LABS: Basophils Percent Auto 0.8 % (0.2-1.2); Eosinophils Absolute Auto 0.1 K/mm3 (0-0.3); Eosinophils Percent Auto 2.3 % (0-4.4); Hematocrit 44.1 % (37.0-47.0); Hemoglobin 13.9 g/dL (12.0-15.0); Immature Granulocyte Absolute 0.01 K/mm3 (0.00-0.031); Immature Granulocyte Percent A 0.3 % (0-0.5); Lymphocytes Absolute Auto 1.29 K/mm3 (0.9-3.2); Lymphocytes Percent Auto 32.8 % (18.3-44.2); Mean Corpuscular HGB Conc 31.5 g/dl (32-36); Mean Corpuscular Hemoglobin 29.4 pg (26-34); Mean Corpuscular Volume 93.2 fl (80-100); Mean Platelet Volume 11.1 fl (7.4-10.4); Monocytes Absolute Auto 0.3 K/mm3 (0.1-0.6); Monocytes Percent Auto 7.1 % (2.6-8.5); Neutrophils Absolute Auto 2.2 K/mm3 (1.3-6.7); Neutrophils Percent Auto 56.7 % (45.5-73.1); Platelet Count Result 164 k/mm3 (150-375); Red Blood Count 4.73 M/mm3 (4.2-5.4); White Blood Count 3.9 K/mm3 (4.5-10.0)
[2021-06-15 08:53] LABS: Alanine Aminotransferase 15 U/L (4-35); Albumin Level 4.1 g/dL (3.5-5.1); Alkaline Phosphatase 43 U/L (38-126); Anion Gap 4 mmol/L (8-16); Aspartate Amino Transferase 22 U/L (14-36); Bilirubin,Total 0.8 mg/dL (0.2-1.3); Blood Urea Nitrogen 14 mg/dL (7-17); Calcium 9.9 mg/dL (8.4-10.2); Carbon Dioxide 27 mmol/L (22-30); Chloride 107 mmol/L (98-107); Cholesterol 131 mg/dL (0-200); Estimated Glomerular Filt Rate > 60; Glucose 217 mg/dL (65-110); HDL Direct 72 mg/dL; Potassium 4.3 mmol/L (3.4-5.0); Sodium 138 mmol/L (137-145); Triglycerides 52 mg/dL (<150)
[2021-06-15 09:06] LABS: LDL Cholesterol Direct 45 mg/dL
[2021-06-15 09:33] LABS: Hemoglobin A1C 8.6 % (<5.7)
[2021-06-17 12:04] LABS: Tacrolimus Prograf 3.7 mcg/L
[2021-07-19 07:46] LABS: Basophils Percent Auto 0.4 % (0.2-1.2); Eosinophils Absolute Auto 0.1 K/mm3 (0-0.3); Eosinophils Percent Auto 1.6 % (0-4.4); Hematocrit 43.7 % (37.0-47.0); Hemoglobin 14.3 g/dL (12.0-15.0); Immature Granulocyte Absolute 0.01 K/mm3 (0.00-0.031); Immature Granulocyte Percent A 0.2 % (0-0.5); Mean Corpuscular HGB Conc 32.7 g/dl (32-36); Mean Corpuscular Hemoglobin 30.2 pg (26-34); Mean Corpuscular Volume 92.4 fl (80-100); Mean Platelet Volume 11.1 fl (7.4-10.4); Monocytes Absolute Auto 0.4 K/mm3 (0.1-0.6); Monocytes Percent Auto 6.2 % (2.6-8.5); Neutrophils Absolute Auto 3.7 K/mm3 (1.3-6.7); Neutrophils Percent Auto 66.6 % (45.5-73.1); Platelet Count Result 167 k/mm3 (150-375); Red Blood Count 4.73 M/mm3 (4.2-5.4); White Blood Count 5.6 K/mm3 (4.5-10.0)
[2021-07-19 07:53] LABS: Albumin Level 4.7 g/dL (3.5-5.1); Anion Gap 9 mmol/L (8-16); Blood Urea Nitrogen 15 mg/dL (7-17); Calcium 10.7 mg/dL (8.4-10.2); Carbon Dioxide 27 mmol/L (22-30); Chloride 104 mmol/L (98-107); Estimated Glomerular Filt Rate > 60; Glucose 206 mg/dL (65-110); Phosphorus 3.9 mg/dL (2.5-4.5); Potassium 4.1 mmol/L (3.4-5.0); Sodium 140 mmol/L (137-145)
[2021-07-22 02:33] LABS: Tacrolimus Prograf 1.9 mcg/L
== END 2021-08-16 23:59 | disposition home or self-care (01) ==
LOC: ANHLAB 07:11
PROVIDERS: PCP Family Medicine; Visit Provider Internal Medicine
DX: Z51.81 Encounter for therapeutic drug level monitoring (principal); E10.65 Type 1 diabetes mellitus with hyperglycemia; Z94.0 Kidney transplant status; Z79.899 Other long term (current) drug therapy
CPT/HCPCS: 36415; 80053; 80061; 80069; 80076; 80197; 83036; 85025

== ENCOUNTER 2021-11-09 07:17 | Outpatient (RCR) | payer MEDICARE, SELFPAY ==
[2021-08-17 08:03] LABS: Basophils Percent Auto 0.9 % (0.2-1.2); Eosinophils Absolute Auto 0.1 K/mm3 (0-0.3); Eosinophils Percent Auto 2.5 % (0-4.4); Hematocrit 44.3 % (37.0-47.0); Hemoglobin 14.1 g/dL (12.0-15.0); Immature Granulocyte Absolute 0.01 K/mm3 (0.00-0.031); Immature Granulocyte Percent A 0.2 % (0-0.5); Lymphocytes Percent Auto 32.4 % (18.3-44.2); Mean Corpuscular HGB Conc 31.8 g/dl (32-36); Mean Corpuscular Hemoglobin 30.2 pg (26-34); Mean Corpuscular Volume 94.9 fl (80-100); Mean Platelet Volume 11.1 fl (7.4-10.4); Monocytes Absolute Auto 0.3 K/mm3 (0.1-0.6); Monocytes Percent Auto 6.7 % (2.6-8.5); Neutrophils Absolute Auto 2.5 K/mm3 (1.3-6.7); Neutrophils Percent Auto 57.3 % (45.5-73.1); Platelet Count Result 147 k/mm3 (150-375); Red Blood Count 4.67 M/mm3 (4.2-5.4); Red Cell Distribution Width 13.1 % (11.5-14.5); White Blood Count 4.3 K/mm3 (4.5-10.0)
[2021-08-17 08:18] LABS: Hemoglobin A1C 8.6 % (<5.7)
[2021-08-17 08:19] LABS: Alanine Aminotransferase 16 U/L (4-35); Alkaline Phosphatase 41 U/L (38-126); Anion Gap 4 mmol/L (8-16); Aspartate Amino Transferase 21 U/L (14-36); Bilirubin,Total 0.4 mg/dL (0.2-1.3); Blood Urea Nitrogen 12 mg/dL (7-17); Carbon Dioxide 30 mmol/L (22-30); Chloride 105 mmol/L (98-107); Cholesterol 123 mg/dL (0-200); Estimated Glomerular Filt Rate > 60; Glucose 229 mg/dL (65-110); HDL Direct 69 mg/dL; Phosphorus 3.1 mg/dL (2.5-4.5); Sodium 139 mmol/L (137-145); Triglycerides 59 mg/dL (<150)
[2021-08-17 08:30] LABS: LDL Cholesterol Direct 41 mg/dL
[2021-09-14 07:41] LABS: Basophils Percent Auto 0.6 % (0.2-1.2); Eosinophils Absolute Auto 0.1 K/mm3 (0-0.3); Eosinophils Percent Auto 2.1 % (0-4.4); Hematocrit 43.7 % (37.0-47.0); Hemoglobin 14.3 g/dL (12.0-15.0); Immature Granulocyte Absolute 0.01 K/mm3 (0.00-0.031); Immature Granulocyte Percent A 0.2 % (0-0.5); Lymphocytes Absolute Auto 1.21 K/mm3 (0.9-3.2); Lymphocytes Percent Auto 25.9 % (18.3-44.2); Mean Corpuscular HGB Conc 32.7 g/dl (32-36); Mean Corpuscular Hemoglobin 30.8 pg (26-34); Mean Platelet Volume 10.5 fl (7.4-10.4); Monocytes Absolute Auto 0.3 K/mm3 (0.1-0.6); Neutrophils Absolute Auto 3.1 K/mm3 (1.3-6.7); Neutrophils Percent Auto 65.2 % (45.5-73.1); Platelet Count Result 169 k/mm3 (150-375); Red Blood Count 4.65 M/mm3 (4.2-5.4); Red Cell Distribution Width 13.2 % (11.5-14.5); White Blood Count 4.7 K/mm3 (4.5-10.0)
[2021-09-14 09:05] LABS: Alanine Aminotransferase 16 U/L (4-35); Albumin Level 4.1 g/dL (3.5-5.1); Alkaline Phosphatase 42 U/L (38-126); Anion Gap 5 mmol/L (8-16); Aspartate Amino Transferase 24 U/L (14-36); Bilirubin,Total 0.4 mg/dL (0.2-1.3); Blood Urea Nitrogen 13 mg/dL (7-17); Calcium 10.2 mg/dL (8.4-10.2); Carbon Dioxide 28 mmol/L (22-30); Chloride 104 mmol/L (98-107); Cholesterol 123 mg/dL (0-200); Estimated Glomerular Filt Rate > 60; Glucose 156 mg/dL (65-110); HDL Direct 70 mg/dL; Phosphorus 3.6 mg/dL (2.5-4.5); Potassium 3.8 mmol/L (3.4-5.0); Sodium 137 mmol/L (137-145); Triglycerides 50 mg/dL (<150)
[2021-09-14 09:17] LABS: LDL Cholesterol Direct 41 mg/dL
[2021-09-16 22:05] LABS: Tacrolimus Prograf 3.7 mcg/L
[2021-10-11 07:54] LABS: Basophils Percent Auto 0.6 % (0.2-1.2); Eosinophils Absolute Auto 0.1 K/mm3 (0-0.3); Eosinophils Percent Auto 2.1 % (0-4.4); Hematocrit 43.5 % (37.0-47.0); Hemoglobin 14.1 g/dL (12.0-15.0); Lymphocytes Percent Auto 25.8 % (18.3-44.2); Mean Corpuscular HGB Conc 32.4 g/dl (32-36); Mean Corpuscular Hemoglobin 30.1 pg (26-34); Mean Corpuscular Volume 92.8 fl (80-100); Mean Platelet Volume 11.1 fl (7.4-10.4); Monocytes Absolute Auto 0.3 K/mm3 (0.1-0.6); Monocytes Percent Auto 7.3 % (2.6-8.5); Neutrophils Percent Auto 64.2 % (45.5-73.1); Platelet Count Result 160 k/mm3 (150-375); Red Blood Count 4.69 M/mm3 (4.2-5.4); Red Cell Distribution Width 13.4 % (11.5-14.5); White Blood Count 4.7 K/mm3 (4.5-10.0)
[2021-10-11 08:11] LABS: Alanine Aminotransferase 17 U/L (4-35); Alkaline Phosphatase 41 U/L (38-126); Anion Gap 4 mmol/L (8-16); Aspartate Amino Transferase 25 U/L (14-36); Bilirubin,Total 0.4 mg/dL (0.2-1.3); Blood Urea Nitrogen 14 mg/dL (7-17); Calcium 9.7 mg/dL (8.4-10.2); Carbon Dioxide 24 mmol/L (22-30); Chloride 107 mmol/L (98-107); Cholesterol 125 mg/dL (0-200); Estimated Glomerular Filt Rate > 60; Glucose 130 mg/dL (65-110); HDL Direct 71 mg/dL; Phosphorus 3.6 mg/dL (2.5-4.5); Potassium 3.9 mmol/L (3.4-5.0); Sodium 135 mmol/L (137-145); Triglycerides 36 mg/dL (<150)
[2021-10-11 08:22] LABS: LDL Cholesterol Direct 42 mg/dL
[2021-11-09 07:54] LABS: Basophils Percent Auto 0.6 % (0.2-1.2); Eosinophils Absolute Auto 0.1 K/mm3 (0-0.3); Eosinophils Percent Auto 2.6 % (0-4.4); Hematocrit 45.6 % (37.0-47.0); Hemoglobin 14.7 g/dL (12.0-15.0); Immature Granulocyte Absolute 0.01 K/mm3 (0.00-0.031); Immature Granulocyte Percent A 0.2 % (0-0.5); Lymphocytes Absolute Auto 1.41 K/mm3 (0.9-3.2); Lymphocytes Percent Auto 28.1 % (18.3-44.2); Mean Corpuscular HGB Conc 32.2 g/dl (32-36); Mean Corpuscular Hemoglobin 30.2 pg (26-34); Mean Corpuscular Volume 93.8 fl (80-100); Mean Platelet Volume 12.5 fl (7.4-10.4); Monocytes Absolute Auto 0.4 K/mm3 (0.1-0.6); Neutrophils Absolute Auto 3.1 K/mm3 (1.3-6.7); Neutrophils Percent Auto 61.5 % (45.5-73.1); Platelet Count Result 116 k/mm3 (150-375); Red Blood Count 4.86 M/mm3 (4.2-5.4); Red Cell Distribution Width 13.2 % (11.5-14.5)
[2021-11-09 08:08] LABS: Hemoglobin A1C 7.9 % (<5.7)
[2021-11-09 08:09] LABS: Alanine Aminotransferase 17 U/L (4-35); Albumin Level 4.2 g/dL (3.5-5.1); Alkaline Phosphatase 39 U/L (38-126); Anion Gap 9 mmol/L (8-16); Aspartate Amino Transferase 30 U/L (14-36); Bilirubin,Total 0.5 mg/dL (0.2-1.3); Blood Urea Nitrogen 13 mg/dL (7-17); Calcium 9.8 mg/dL (8.4-10.2); Carbon Dioxide 25 mmol/L (22-30); Chloride 105 mmol/L (98-107); Cholesterol 127 mg/dL (0-200); Estimated Glomerular Filt Rate > 60; Glucose 131 mg/dL (65-110); HDL Direct 78 mg/dL; Phosphorus 4.2 mg/dL (2.5-4.5); Sodium 139 mmol/L (137-145); Triglycerides 60 mg/dL (<150)
[2021-11-09 08:17] LABS: LDL Cholesterol Direct 40 mg/dL
[2021-11-11 21:14] LABS: Tacrolimus Prograf 1.2 mcg/L
== END 2021-11-15 23:59 | disposition home or self-care (01) ==
LOC: ANHLAB 07:17
PROVIDERS: PCP Family Medicine; Visit Provider Internal Medicine
DX: E78.2 Mixed hyperlipidemia (principal); Z94.0 Kidney transplant status; Z79.899 Other long term (current) drug therapy
CPT/HCPCS: 36415; 80061; 80069; 80076; 80197; 83036; 85025

== ENCOUNTER 2022-02-14 07:27 | Outpatient (RCR) | payer MEDICARE, SELFPAY ==
[2021-12-13 08:40] LABS: Basophils Percent Auto 0.7 % (0.2-1.2); Eosinophils Absolute Auto 0.1 K/mm3 (0-0.3); Eosinophils Percent Auto 2.2 % (0-4.4); Hematocrit 43.2 % (37.0-47.0); Immature Granulocyte Absolute 0.01 K/mm3 (0.00-0.031); Immature Granulocyte Percent A 0.2 % (0-0.5); Lymphocytes Absolute Auto 1.26 K/mm3 (0.9-3.2); Lymphocytes Percent Auto 27.5 % (18.3-44.2); Mean Corpuscular HGB Conc 32.4 g/dl (32-36); Mean Corpuscular Hemoglobin 29.9 pg (26-34); Mean Corpuscular Volume 92.3 fl (80-100); Mean Platelet Volume 11.6 fl (7.4-10.4); Monocytes Absolute Auto 0.4 K/mm3 (0.1-0.6); Monocytes Percent Auto 7.9 % (2.6-8.5); Neutrophils Absolute Auto 2.8 K/mm3 (1.3-6.7); Neutrophils Percent Auto 61.5 % (45.5-73.1); Platelet Count Result 159 k/mm3 (150-375); Red Blood Count 4.68 M/mm3 (4.2-5.4); Red Cell Distribution Width 13.2 % (11.5-14.5); White Blood Count 4.6 K/mm3 (4.5-10.0)
[2021-12-13 08:59] LABS: Hemoglobin A1C 7.9 % (<5.7)
[2021-12-13 09:08] LABS: Alanine Aminotransferase 14 U/L (4-35); Alkaline Phosphatase 47 U/L (38-126); Anion Gap 5 mmol/L (8-16); Aspartate Amino Transferase 25 U/L (14-36); Bilirubin,Total 0.6 mg/dL (0.2-1.3); Blood Urea Nitrogen 13 mg/dL (7-17); Calcium 9.7 mg/dL (8.4-10.2); Carbon Dioxide 27 mmol/L (22-30); Chloride 106 mmol/L (98-107); Cholesterol 119 mg/dL (0-200); Estimated Glomerular Filt Rate > 60; Glucose 176 mg/dL (65-110); HDL Direct 67 mg/dL; Phosphorus 3.4 mg/dL (2.5-4.5); Potassium 3.9 mmol/L (3.4-5.0); Sodium 138 mmol/L (137-145); Triglycerides 42 mg/dL (<150)
[2021-12-13 09:26] LABS: LDL Cholesterol Direct 39 mg/dL
[2021-12-15 09:01] LABS: Tacrolimus Prograf 3.8 mcg/L
[2022-01-17 07:32] LABS: Basophils Percent Auto 0.6 % (0.2-1.2); Eosinophils Absolute Auto 0.1 K/mm3 (0-0.3); Hematocrit 45.5 % (37.0-47.0); Hemoglobin 14.3 g/dL (12.0-15.0); Immature Granulocyte Absolute 0.01 K/mm3 (0.00-0.031); Immature Granulocyte Percent A 0.2 % (0-0.5); Lymphocytes Absolute Auto 1.53 K/mm3 (0.9-3.2); Lymphocytes Percent Auto 31.1 % (18.3-44.2); Mean Corpuscular HGB Conc 31.4 g/dl (32-36); Mean Corpuscular Hemoglobin 29.7 pg (26-34); Mean Corpuscular Volume 94.4 fl (80-100); Mean Platelet Volume 10.9 fl (7.4-10.4); Monocytes Absolute Auto 0.3 K/mm3 (0.1-0.6); Monocytes Percent Auto 6.9 % (2.6-8.5); Neutrophils Absolute Auto 2.9 K/mm3 (1.3-6.7); Neutrophils Percent Auto 59.2 % (45.5-73.1); Platelet Count Result 160 k/mm3 (150-375); Red Blood Count 4.82 M/mm3 (4.2-5.4); Red Cell Distribution Width 13.3 % (11.5-14.5); White Blood Count 4.9 K/mm3 (4.5-10.0)
[2022-01-17 07:44] LABS: Hemoglobin A1C 7.4 % (<5.7)
[2022-01-17 07:48] LABS: Alanine Aminotransferase 15 U/L (4-35); Albumin Level 4.3 g/dL (3.5-5.1); Alkaline Phosphatase 49 U/L (38-126); Anion Gap 5 mmol/L (8-16); Aspartate Amino Transferase 26 U/L (14-36); Bilirubin,Total 0.4 mg/dL (0.2-1.3); Blood Urea Nitrogen 13 mg/dL (7-17); Calcium 9.9 mg/dL (8.4-10.2); Carbon Dioxide 28 mmol/L (22-30); Chloride 107 mmol/L (98-107); Cholesterol 133 mg/dL (0-200); Estimated Glomerular Filt Rate > 60; Glucose 162 mg/dL (65-110); HDL Direct 73 mg/dL; Phosphorus 3.5 mg/dL (2.5-4.5); Potassium 3.8 mmol/L (3.4-5.0); Sodium 140 mmol/L (137-145); Triglycerides 50 mg/dL (<150)
[2022-01-17 08:00] LABS: LDL Cholesterol Direct 41 mg/dL
[2022-01-19 10:04] LABS: Tacrolimus Prograf 2.8 mcg/L
[2022-02-14 07:47] LABS: Basophils Percent Auto 0.4 % (0.2-1.2); Eosinophils Absolute Auto 0.1 K/mm3 (0-0.3); Eosinophils Percent Auto 2.2 % (0-4.4); Immature Granulocyte Absolute 0.01 K/mm3 (0.00-0.031); Immature Granulocyte Percent A 0.2 % (0-0.5); Lymphocytes Absolute Auto 1.39 K/mm3 (0.9-3.2); Lymphocytes Percent Auto 30.8 % (18.3-44.2); Mean Corpuscular HGB Conc 32.6 g/dl (32-36); Mean Corpuscular Volume 92.1 fl (80-100); Mean Platelet Volume 10.8 fl (7.4-10.4); Monocytes Absolute Auto 0.3 K/mm3 (0.1-0.6); Monocytes Percent Auto 7.1 % (2.6-8.5); Neutrophils Absolute Auto 2.7 K/mm3 (1.3-6.7); Neutrophils Percent Auto 59.3 % (45.5-73.1); Platelet Count Result 163 k/mm3 (150-375); Red Blood Count 4.67 M/mm3 (4.2-5.4); Red Cell Distribution Width 13.3 % (11.5-14.5); White Blood Count 4.5 K/mm3 (4.5-10.0)
[2022-02-14 08:04] LABS: Alanine Aminotransferase 16 U/L (4-35); Albumin Level 4.1 g/dL (3.5-5.1); Alkaline Phosphatase 48 U/L (38-126); Anion Gap 3 mmol/L (8-16); Aspartate Amino Transferase 24 U/L (14-36); Bilirubin,Total 0.7 mg/dL (0.2-1.3); Blood Urea Nitrogen 15 mg/dL (7-17); Calcium 9.6 mg/dL (8.4-10.2); Carbon Dioxide 27 mmol/L (22-30); Chloride 107 mmol/L (98-107); Cholesterol 126 mg/dL (0-200); Estimated Glomerular Filt Rate > 60; Glucose 240 mg/dL (65-110); HDL Direct 65 mg/dL; Phosphorus 3.3 mg/dL (2.5-4.5); Potassium 4.2 mmol/L (3.4-5.0); Sodium 137 mmol/L (137-145); Triglycerides 48 mg/dL (<150)
[2022-02-14 08:09] LABS: LDL Cholesterol Direct 39 mg/dL
[2022-02-14 08:14] LABS: Hemoglobin A1C 7.5 % (<5.7)
[2022-02-16 15:35] LABS: Tacrolimus Prograf 2.9 mcg/L
== END 2022-03-13 23:59 | disposition home or self-care (01) ==
LOC: ANHLAB 07:27
PROVIDERS: PCP Family Medicine; Visit Provider Internal Medicine
DX: E78.2 Mixed hyperlipidemia (principal); Z94.0 Kidney transplant status; Z79.899 Other long term (current) drug therapy
CPT/HCPCS: 36415; 80061; 80069; 80076; 80197; 83036; 85025

== ENCOUNTER 2022-07-04 07:26 | Outpatient (RCR) | payer MEDICARE, SELFPAY ==
[2022-04-11 08:17] LABS: Basophils Percent Auto 0.6 % (0.2-1.2); Eosinophils Absolute Auto 0.1 K/mm3 (0-0.3); Eosinophils Percent Auto 1.9 % (0-4.4); Hematocrit 44.3 % (37.0-47.0); Hemoglobin 13.9 g/dL (12.0-15.0); Immature Granulocyte Absolute 0.02 K/mm3 (0.00-0.031); Immature Granulocyte Percent A 0.4 % (0-0.5); Lymphocytes Absolute Auto 1.37 K/mm3 (0.9-3.2); Lymphocytes Percent Auto 26.4 % (18.3-44.2); Mean Corpuscular HGB Conc 31.4 g/dl (32-36); Mean Corpuscular Hemoglobin 29.4 pg (26-34); Mean Corpuscular Volume 93.9 fl (80-100); Mean Platelet Volume 11.8 fl (7.4-10.4); Monocytes Absolute Auto 0.4 K/mm3 (0.1-0.6); Monocytes Percent Auto 8.1 % (2.6-8.5); Neutrophils Absolute Auto 3.2 K/mm3 (1.3-6.7); Neutrophils Percent Auto 62.6 % (45.5-73.1); Platelet Count Result 168 k/mm3 (150-375); Red Blood Count 4.72 M/mm3 (4.2-5.4); Red Cell Distribution Width 13.3 % (11.5-14.5); White Blood Count 5.2 K/mm3 (4.5-10.0)
[2022-04-11 08:34] LABS: Alanine Aminotransferase 14 U/L (6-35); Albumin Level 4.5 g/dL (3.5-5.1); Alkaline Phosphatase 49 U/L (38-126); Anion Gap 2 mmol/L (8-16); Aspartate Amino Transferase 24 U/L (14-36); Blood Urea Nitrogen 10 mg/dL (7-17); Calcium 9.9 mg/dL (8.4-10.2); Carbon Dioxide 28 mmol/L (22-30); Chloride 107 mmol/L (98-107); Cholesterol 138 mg/dL (0-200); Estimated Glomerular Filt Rate > 60; Glucose 215 mg/dL (65-110); HDL Direct 77 mg/dL; Phosphorus 3.2 mg/dL (2.5-4.5); Potassium 4.1 mmol/L (3.4-5.0); Sodium 137 mmol/L (137-145); Triglycerides 55 mg/dL (<150)
[2022-04-11 08:45] LABS: LDL Cholesterol Direct 40 mg/dL
[2022-04-11 10:25] LABS: Hemoglobin A1C 7.9 % (<5.7)
[2022-04-13 10:48] LABS: Tacrolimus Prograf 3.6 mcg/L
[2022-05-24 07:31] LABS: Basophils Percent Auto 0.7 % (0.2-1.2); Eosinophils Absolute Auto 0.1 K/mm3 (0-0.3); Eosinophils Percent Auto 2.9 % (0-4.4); Hematocrit 43.8 % (37.0-47.0); Hemoglobin 13.9 g/dL (12.0-15.0); Immature Granulocyte Absolute 0.01 K/mm3 (0.00-0.031); Immature Granulocyte Percent A 0.2 % (0-0.5); Lymphocytes Absolute Auto 1.44 K/mm3 (0.9-3.2); Lymphocytes Percent Auto 31.9 % (18.3-44.2); Mean Corpuscular HGB Conc 31.7 g/dl (32-36); Mean Corpuscular Hemoglobin 29.4 pg (26-34); Mean Corpuscular Volume 92.8 fl (80-100); Mean Platelet Volume 11.4 fl (7.4-10.4); Monocytes Absolute Auto 0.3 K/mm3 (0.1-0.6); Monocytes Percent Auto 6.6 % (2.6-8.5); Neutrophils Absolute Auto 2.6 K/mm3 (1.3-6.7); Neutrophils Percent Auto 57.7 % (45.5-73.1); Platelet Count Result 149 k/mm3 (150-375); Red Blood Count 4.72 M/mm3 (4.2-5.4); Red Cell Distribution Width 13.4 % (11.5-14.5); White Blood Count 4.5 K/mm3 (4.5-10.0)
[2022-05-24 07:45] LABS: Alanine Aminotransferase 15 U/L (6-35); Albumin Level 4.3 g/dL (3.5-5.1); Alkaline Phosphatase 48 U/L (38-126); Anion Gap 8 mmol/L (8-16); Aspartate Amino Transferase 22 U/L (14-36); Bilirubin,Total 0.5 mg/dL (0.2-1.3); Blood Urea Nitrogen 12 mg/dL (7-17); Calcium 9.5 mg/dL (8.4-10.2); Carbon Dioxide 28 mmol/L (22-30); Chloride 104 mmol/L (98-107); Cholesterol 142 mg/dL (0-200); Estimated Glomerular Filt Rate > 60; Glucose 196 mg/dL (65-110); HDL Direct 84 mg/dL; Phosphorus 3.6 mg/dL (2.5-4.5); Potassium 4.1 mmol/L (3.4-5.0); Sodium 140 mmol/L (137-145); Triglycerides 50 mg/dL (<150)
[2022-05-24 07:55] LABS: LDL Cholesterol Direct 35 mg/dL
[2022-05-24 07:56] LABS: Hemoglobin A1C 7.9 % (<5.7)
[2022-05-26 22:05] LABS: Tacrolimus Prograf 2.7 mcg/L
[2022-07-04 07:50] LABS: Basophils Percent Auto 0.9 % (0.2-1.2); Eosinophils Absolute Auto 0.1 K/mm3 (0-0.3); Eosinophils Percent Auto 2.4 % (0-4.4); Hematocrit 42.9 % (37.0-47.0); Hemoglobin 13.9 g/dL (12.0-15.0); Immature Granulocyte Absolute 0.01 K/mm3 (0.00-0.031); Immature Granulocyte Percent A 0.2 % (0-0.5); Lymphocytes Absolute Auto 1.43 K/mm3 (0.9-3.2); Lymphocytes Percent Auto 30.6 % (18.3-44.2); Mean Corpuscular HGB Conc 32.4 g/dl (32-36); Mean Corpuscular Hemoglobin 29.9 pg (26-34); Mean Corpuscular Volume 92.3 fl (80-100); Mean Platelet Volume 10.7 fl (7.4-10.4); Monocytes Absolute Auto 0.4 K/mm3 (0.1-0.6); Monocytes Percent Auto 7.5 % (2.6-8.5); Neutrophils Absolute Auto 2.7 K/mm3 (1.3-6.7); Neutrophils Percent Auto 58.4 % (45.5-73.1); Platelet Count Result 155 k/mm3 (150-375); Red Blood Count 4.65 M/mm3 (4.2-5.4); Red Cell Distribution Width 13.6 % (11.5-14.5); White Blood Count 4.7 K/mm3 (4.5-10.0)
[2022-07-04 08:08] LABS: Albumin Level 4.1 g/dL (3.5-5.1); Anion Gap 11 mmol/L (8-16); Blood Urea Nitrogen 13 mg/dL (7-17); Calcium 9.7 mg/dL (8.4-10.2); Carbon Dioxide 24 mmol/L (22-30); Chloride 108 mmol/L (98-107); Estimated Glomerular Filt Rate > 60; Glucose 108 mg/dL (65-110); Phosphorus 3.7 mg/dL (2.5-4.5); Potassium 3.8 mmol/L (3.4-5.0); Sodium 143 mmol/L (137-145)
== END 2022-07-10 23:59 | disposition home or self-care (01) ==
LOC: ANHLAB 07:26
PROVIDERS: Nurse Practitioner; PCP Family Medicine; Visit Provider Internal Medicine
DX: E78.2 Mixed hyperlipidemia (principal); Z94.0 Kidney transplant status; Z79.899 Other long term (current) drug therapy
CPT/HCPCS: 36415; 80061; 80069; 80076; 80197; 83036; 84443; 85025

== ENCOUNTER 2022-10-19 07:20 | Outpatient (RCR) | payer MEDICARE, SELFPAY ==
[2022-08-15 08:05] LABS: Basophils Percent Auto 0.9 % (0.2-1.2); Eosinophils Absolute Auto 0.2 K/mm3 (0-0.3); Eosinophils Percent Auto 3.4 % (0-4.4); Hematocrit 41.5 % (37.0-47.0); Hemoglobin 13.7 g/dL (12.0-15.0); Immature Granulocyte Absolute 0.02 K/mm3 (0.00-0.031); Immature Granulocyte Percent A 0.4 % (0-0.5); Lymphocytes Absolute Auto 1.22 K/mm3 (0.9-3.2); Lymphocytes Percent Auto 27.3 % (18.3-44.2); Mean Corpuscular Hemoglobin 30.2 pg (26-34); Mean Corpuscular Volume 91.6 fl (80-100); Mean Platelet Volume 10.3 fl (7.4-10.4); Monocytes Absolute Auto 0.3 K/mm3 (0.1-0.6); Monocytes Percent Auto 7.6 % (2.6-8.5); Neutrophils Absolute Auto 2.7 K/mm3 (1.3-6.7); Neutrophils Percent Auto 60.4 % (45.5-73.1); Platelet Count Result 181 k/mm3 (150-375); Red Blood Count 4.53 M/mm3 (4.2-5.4); Red Cell Distribution Width 13.2 % (11.5-14.5); White Blood Count 4.5 K/mm3 (4.5-10.0)
[2022-08-15 08:18] LABS: Alanine Aminotransferase 18 U/L (6-35); Alkaline Phosphatase 49 U/L (38-126); Anion Gap 6 mmol/L (8-16); Aspartate Amino Transferase 23 U/L (14-36); Bilirubin,Total 0.6 mg/dL (0.2-1.3); Blood Urea Nitrogen 13 mg/dL (7-17); Calcium 9.5 mg/dL (8.4-10.2); Carbon Dioxide 26 mmol/L (22-30); Chloride 106 mmol/L (98-107); Cholesterol 120 mg/dL (0-200); Estimated Glomerular Filt Rate > 60; Glucose 220 mg/dL (65-110); HDL Direct 63 mg/dL; Phosphorus 3.1 mg/dL (2.5-4.5); Potassium 4.2 mmol/L (3.4-5.0); Sodium 138 mmol/L (137-145); Triglycerides 56 mg/dL (<150)
[2022-08-15 08:29] LABS: LDL Cholesterol Direct 43 mg/dL
[2022-08-15 08:31] LABS: Hemoglobin A1C 8.1 % (<5.7)
[2022-08-18 07:07] LABS: Tacrolimus Prograf 3.2 mcg/L
[2022-09-19 08:06] LABS: Basophils Percent Auto 0.8 % (0.2-1.2); Eosinophils Absolute Auto 0.2 K/mm3 (0-0.3); Eosinophils Percent Auto 3.3 % (0-4.4); Hematocrit 43.8 % (37.0-47.0); Immature Granulocyte Absolute 0.01 K/mm3 (0.00-0.031); Immature Granulocyte Percent A 0.2 % (0-0.5); Lymphocytes Absolute Auto 1.15 K/mm3 (0.9-3.2); Lymphocytes Percent Auto 23.5 % (18.3-44.2); Mean Corpuscular Hemoglobin 29.8 pg (26-34); Mean Corpuscular Volume 93.2 fl (80-100); Mean Platelet Volume 9.9 fl (7.4-10.4); Monocytes Absolute Auto 0.4 K/mm3 (0.1-0.6); Monocytes Percent Auto 7.6 % (2.6-8.5); Neutrophils Absolute Auto 3.2 K/mm3 (1.3-6.7); Neutrophils Percent Auto 64.6 % (45.5-73.1); Platelet Count Result 211 k/mm3 (150-375); Red Cell Distribution Width 13.2 % (11.5-14.5); White Blood Count 4.9 K/mm3 (4.5-10.0)
[2022-09-19 08:17] LABS: Alanine Aminotransferase 16 U/L (6-35); Albumin Level 4.1 g/dL (3.5-5.1); Alkaline Phosphatase 49 U/L (38-126); Anion Gap 9 mmol/L (8-16); Aspartate Amino Transferase 25 U/L (14-36); Bilirubin,Total 0.4 mg/dL (0.2-1.3); Blood Urea Nitrogen 11 mg/dL (7-17); Calcium 9.7 mg/dL (8.4-10.2); Carbon Dioxide 26 mmol/L (22-30); Chloride 106 mmol/L (98-107); Cholesterol 125 mg/dL (0-200); Estimated Glomerular Filt Rate > 60; Glucose 149 mg/dL (65-110); HDL Direct 61 mg/dL; Phosphorus 3.6 mg/dL (2.5-4.5); Potassium 4.2 mmol/L (3.4-5.0); Sodium 141 mmol/L (137-145); Triglycerides 50 mg/dL (<150)
[2022-09-19 08:28] LABS: LDL Cholesterol Direct 50 mg/dL
[2022-09-19 09:29] LABS: Hemoglobin A1C 7.7 % (<5.7)
[2022-09-21 07:43] LABS: Tacrolimus Prograf 3.3 mcg/L
[2022-10-19 08:26] LABS: Basophils Percent Auto 0.6 % (0.2-1.2); Eosinophils Absolute Auto 0.2 K/mm3 (0-0.3); Eosinophils Percent Auto 3.8 % (0-4.4); Hematocrit 45.5 % (37.0-47.0); Hemoglobin 14.6 g/dL (12.0-15.0); Immature Granulocyte Absolute 0.01 K/mm3 (0.00-0.031); Immature Granulocyte Percent A 0.2 % (0-0.5); Lymphocytes Absolute Auto 1.29 K/mm3 (0.9-3.2); Mean Corpuscular HGB Conc 32.1 g/dl (32-36); Mean Corpuscular Hemoglobin 29.9 pg (26-34); Mean Platelet Volume 10.8 fl (7.4-10.4); Monocytes Absolute Auto 0.4 K/mm3 (0.1-0.6); Monocytes Percent Auto 8.5 % (2.6-8.5); Neutrophils Percent Auto 60.9 % (45.5-73.1); Platelet Count Result 175 k/mm3 (150-375); Red Blood Count 4.89 M/mm3 (4.2-5.4); Red Cell Distribution Width 13.8 % (11.5-14.5)
[2022-10-19 08:40] LABS: Albumin Level 4.3 g/dL (3.5-5.1); Anion Gap 5 mmol/L (8-16); Blood Urea Nitrogen 13 mg/dL (7-17); Calcium 9.7 mg/dL (8.4-10.2); Carbon Dioxide 29 mmol/L (22-30); Chloride 106 mmol/L (98-107); Cholesterol 140 mg/dL (0-200); Estimated Glomerular Filt Rate > 60; Glucose 141 mg/dL (65-110); HDL Direct 73 mg/dL; Phosphorus 3.7 mg/dL (2.5-4.5); Potassium 3.7 mmol/L (3.4-5.0); Sodium 140 mmol/L (137-145); Triglycerides 55 mg/dL (<150)
[2022-10-19 08:51] LABS: LDL Cholesterol Direct 48 mg/dL
[2022-10-19 08:54] LABS: Hemoglobin A1C 7.4 % (<5.7)
[2022-10-21 08:30] LABS: Tacrolimus Prograf 1.5 mcg/L
== END 2022-11-13 23:59 | disposition home or self-care (01) ==
LOC: ANHLAB 07:20
PROVIDERS: PCP Family Medicine; Visit Provider Internal Medicine
DX: E10.65 Type 1 diabetes mellitus with hyperglycemia (principal); E78.2 Mixed hyperlipidemia; Z94.0 Kidney transplant status; Z79.899 Other long term (current) drug therapy
CPT/HCPCS: 36415; 80061; 80069; 80076; 80197; 83036; 85025

== ENCOUNTER 2022-10-25 09:00 | Outpatient (CLI) | payer MEDICARE, SELFPAY ==
--- NOTE | ~2022-10-25 | MM_ITS ---
EXAMINATION: MM screening yolanda BI w jayy HISTORY: Screening mammogram TECHNIQUE: Craniocaudal and mediolateral oblique 3-D tomosynthesis images were obtained and synthetic 2-D images were generated. CAD analysis was submitted and interpreted. COMPARISON: No prior mammogram is available for comparison at this institution. BREAST PARENCHYMAL COMPOSITION: There are scattered areas of fibroglandular density. FINDINGS: No suspicious mass, calcification, or architectural distortion are identified in either oswald ast to suggest malignancy. IMPRESSION: 1. No mammographic evidence of malignancy. 2. Recommend routine screening mammography in one year. BI-RADS Category 1: Negative Reviewed, dictated and finalized at location A. ADVISOR
--- NOTE | ~2022-10-25 | DEXA_ITS ---
Bone Density Report Name: MELANI DE LOS SANTOS Age: 77 Sex: Female Ethnicity: White Date of : 1945 Indication: osteopenia; monitoring treatment; history of glucocorticoids; postmenopausal Referring Provider: PATRICIA TRUONG Study: Bone densitometry was performed. Exam Date: October 25, 2022 Accession number: [id number] Bone Density: Region BMD T-score Z-score Classification AP Spine(L1-L4) 0.804 -2.2 0.3 Osteopenia Femoral Neck (Left) 0.750 -0.9 1.3 Normal Total Hip (Left) 0.745 -1.6 0.3 Osteopenia Femoral Neck (Right) 0.703 -1.3 0.9 Osteopenia Total Hip (Right) 0.717 -1.8 0.1 Osteopenia Total Hip Mean 0.731 -1.7 0.2 Osteopenia World Health Organization criteria for BMD impression classify patients as: Normal (T-score at or above -1.0), Osteopenia (T-score between -1.0 and -2.5), or Osteoporosis (T-score at or below -2.5). 10-year Fracture Risk: FRAX not reported because: Treated for osteoporosis Previous Exams: Region Exam Age BMD T-score BMD Change BMD Change Date g/cm2 vs Baseline vs Previous AP Spine (L1-L4) 10/25/2022 77 0.804 -2.2 -0.059 (-6.8%) -0.020 (-2.4%) 12/08/2016 71 0.824 -2.0 -0.039 (-4.5%) -0.039 (-4.5%) 05/12/2014 68 0.863 -1.7 Total Hip(Left) 10/25/2022 77 0.745 -1.6 -0.168 (-18.4% -0.060 (-7.5%) 12/08/2016 71 0.805 -1.1 -0.108 (-11.8% -0.108 (-11.8% 05/12/2014 68 0.912 -0.2 Total Hip(Right) 10/25/2022 77 0.717 -1.8 -0.137 (-16.0% -0.089 (-11.0% 12/08/2016 71 0.807 -1.1 -0.048 (-5.6%) -0.048 (-5.6%) 05/12/2014 68 0.854 -0.7 *Denotes significance at 95% confidence level, LSC for AP Spine = 0.022 g/cm2, LSC for Total Hip = 0.027 g/cm2 # Denotes dissimilar scan types or analysis methods Clinical Information Provided by Patient: Has taken Glucocorticoids Is being treated for osteoporosis Has used the following medications: Vitamin D, calcitonin Patient maximum height was 66.5 Menopause Age: 51 Drinks caffeinated beverages Onset of menses at age 14 Number of children 2 Impression: The patient has low bone mass, based on the Total Spine T-score. The patient has risk factors, including: history of glucocorticoid therapy. The BMD for the Total Hip(Left) decreased, changing by -7.5% since the last DXA exam. The BMD for the Total Hip(Right) decreased, changing by -11.0% since the last DXA exam. Discussion: SIGNIFICANT BONE LOSS OBSERVED. Adherence to therapy (includ
== END 2022-10-25 09:01 | disposition home or self-care (01) ==
PROVIDERS: PCP Family Medicine; Visit Provider Family Medicine
DX: Z12.31 Encounter for screening mammogram for malignant neoplasm of breast (principal); Z78.0 Asymptomatic menopausal state; M85.88 Other specified disorders of bone density and structure, other site; M85.852 Other specified disorders of bone density and structure, left thigh; M85.851 Other specified disorders of bone density and structure, right thigh
CPT/HCPCS: 77063; 77067; 77080

== ENCOUNTER 2022-10-26 07:23 | Outpatient (CLI) | payer MEDICARE, SELFPAY ==
[2022-10-28 21:27] LABS: Tacrolimus Prograf 3.1 mcg/L
== END 2022-10-26 07:24 | disposition home or self-care (01) ==
LOC: ANHLAB 07:27
PROVIDERS: PCP Family Medicine; Visit Provider Internal Medicine
DX: Z94.0 Kidney transplant status (principal)
CPT/HCPCS: 36415; 80197

== ENCOUNTER 2022-12-21 13:40 | Outpatient (CLI) | payer MEDICARE, SELFPAY ==
[2022-12-21 21:20] LABS: Vitamin D 25 Hydroxy 55.9 ng/mL
[2022-12-21 21:28] LABS: MALB Creatinine Ratio 24.8 mg/g (0-30); Microalbumin Urine Random 7.7 mg/L (0-16.7)
== END 2022-12-21 13:41 | disposition home or self-care (01) ==
LOC: ANHGOSHLAB 13:43
PROVIDERS: PCP Internal Medicine; Visit Provider Family Medicine
DX: M85.80 Other specified disorders of bone density and structure, unspecified site (principal); E11.65 Type 2 diabetes mellitus with hyperglycemia
CPT/HCPCS: 36415; 82043; 82306

== ENCOUNTER 2023-02-07 07:17 | Outpatient (RCR) | payer MEDICARE, SELFPAY ==
[2022-11-15 08:12] LABS: Basophils Percent Auto 0.7 % (0.2-1.2); Eosinophils Absolute Auto 0.2 K/mm3 (0-0.3); Hematocrit 45.3 % (37.0-47.0); Hemoglobin 14.5 g/dL (12.0-15.0); Immature Granulocyte Absolute 0.01 K/mm3 (0.00-0.031); Immature Granulocyte Percent A 0.2 % (0-0.5); Lymphocytes Absolute Auto 1.35 K/mm3 (0.9-3.2); Lymphocytes Percent Auto 31.5 % (18.3-44.2); Mean Corpuscular Hemoglobin 29.2 pg (26-34); Mean Corpuscular Volume 91.1 fl (80-100); Mean Platelet Volume 10.8 fl (7.4-10.4); Monocytes Absolute Auto 0.3 K/mm3 (0.1-0.6); Monocytes Percent Auto 7.9 % (2.6-8.5); Neutrophils Absolute Auto 2.4 K/mm3 (1.3-6.7); Neutrophils Percent Auto 55.7 % (45.5-73.1); Platelet Count Result 171 k/mm3 (150-375); Red Blood Count 4.97 M/mm3 (4.2-5.4); Red Cell Distribution Width 13.6 % (11.5-14.5); White Blood Count 4.3 K/mm3 (4.5-10.0)
[2022-11-15 08:19] LABS: Alanine Aminotransferase 18 U/L (6-35); Albumin Level 3.9 g/dL (3.5-5.1); Alkaline Phosphatase 44 U/L (38-126); Anion Gap 5 mmol/L (8-16); Aspartate Amino Transferase 25 U/L (14-36); Bilirubin,Total 0.5 mg/dL (0.2-1.3); Blood Urea Nitrogen 13 mg/dL (7-17); Calcium 9.7 mg/dL (8.4-10.2); Carbon Dioxide 27 mmol/L (22-30); Chloride 108 mmol/L (98-107); Cholesterol 133 mg/dL (0-200); Estimated Glomerular Filt Rate > 60; Glucose 119 mg/dL (65-110); HDL Direct 72 mg/dL; Phosphorus 3.5 mg/dL (2.5-4.5); Sodium 140 mmol/L (137-145); Triglycerides 52 mg/dL (<150)
[2022-11-15 08:30] LABS: LDL Cholesterol Direct 44 mg/dL
[2022-11-17 15:49] LABS: Tacrolimus Prograf 3.8 mcg/L
[2022-12-13 08:05] LABS: Basophils Percent Auto 0.7 % (0.2-1.2); Eosinophils Absolute Auto 0.1 K/mm3 (0-0.3); Eosinophils Percent Auto 3.1 % (0-4.4); Hematocrit 45.9 % (37.0-47.0); Hemoglobin 14.6 g/dL (12.0-15.0); Immature Granulocyte Absolute 0.02 K/mm3 (0.00-0.031); Immature Granulocyte Percent A 0.4 % (0-0.5); Lymphocytes Absolute Auto 1.36 K/mm3 (0.9-3.2); Lymphocytes Percent Auto 29.7 % (18.3-44.2); Mean Corpuscular HGB Conc 31.8 g/dl (32-36); Mean Corpuscular Hemoglobin 29.7 pg (26-34); Mean Corpuscular Volume 93.3 fl (80-100); Mean Platelet Volume 10.2 fl (7.4-10.4); Monocytes Absolute Auto 0.4 K/mm3 (0.1-0.6); Monocytes Percent Auto 7.6 % (2.6-8.5); Neutrophils Absolute Auto 2.7 K/mm3 (1.3-6.7); Neutrophils Percent Auto 58.5 % (45.5-73.1); Platelet Count Result 176 k/mm3 (150-375); Red Blood Count 4.92 M/mm3 (4.2-5.4); Red Cell Distribution Width 13.9 % (11.5-14.5); White Blood Count 4.6 K/mm3 (4.5-10.0)
[2022-12-13 08:18] LABS: Albumin Level 4.1 g/dL (3.5-5.1); Anion Gap 5 mmol/L (8-16); Blood Urea Nitrogen 15 mg/dL (7-17); Calcium 9.3 mg/dL (8.4-10.2); Carbon Dioxide 28 mmol/L (22-30); Chloride 106 mmol/L (98-107); Estimated Glomerular Filt Rate > 60; Glucose 140 mg/dL (65-110); Phosphorus 3.7 mg/dL (2.5-4.5); Potassium 4.1 mmol/L (3.4-5.0); Sodium 139 mmol/L (137-145)
[2022-12-15 15:59] LABS: Tacrolimus Prograf 3.6 mcg/L
[2023-01-10 07:51] LABS: Basophils Percent Auto 0.6 % (0.2-1.2); Eosinophils Absolute Auto 0.2 K/mm3 (0-0.3); Eosinophils Percent Auto 3.3 % (0-4.4); Hemoglobin 13.9 g/dL (12.0-15.0); Immature Granulocyte Absolute 0.01 K/mm3 (0.00-0.031); Immature Granulocyte Percent A 0.2 % (0-0.5); Lymphocytes Absolute Auto 1.49 K/mm3 (0.9-3.2); Lymphocytes Percent Auto 27.5 % (18.3-44.2); Mean Corpuscular HGB Conc 32.3 g/dl (32-36); Mean Corpuscular Hemoglobin 29.4 pg (26-34); Mean Corpuscular Volume 90.9 fl (80-100); Mean Platelet Volume 10.4 fl (7.4-10.4); Monocytes Absolute Auto 0.5 K/mm3 (0.1-0.6); Monocytes Percent Auto 8.3 % (2.6-8.5); Neutrophils Absolute Auto 3.3 K/mm3 (1.3-6.7); Neutrophils Percent Auto 60.1 % (45.5-73.1); Platelet Count Result 173 k/mm3 (150-375); Red Blood Count 4.73 M/mm3 (4.2-5.4); Red Cell Distribution Width 13.7 % (11.5-14.5); White Blood Count 5.4 K/mm3 (4.5-10.0)
[2023-01-10 08:04] LABS: Albumin Level 4.1 g/dL (3.5-5.1); Anion Gap 3 mmol/L (8-16); Blood Urea Nitrogen 14 mg/dL (7-17); Calcium 9.3 mg/dL (8.4-10.2); Carbon Dioxide 30 mmol/L (22-30); Chloride 108 mmol/L (98-107); Estimated Glomerular Filt Rate > 60; Glucose 96 mg/dL (65-110); Phosphorus 3.6 mg/dL (2.5-4.5); Potassium 3.7 mmol/L (3.4-5.0); Sodium 141 mmol/L (137-145)
[2023-01-13 15:29] LABS: Tacrolimus Prograf 2.8 mcg/L
[2023-02-07 07:39] LABS: Basophils Percent Auto 0.9 % (0.2-1.2); Eosinophils Absolute Auto 0.2 K/mm3 (0-0.3); Eosinophils Percent Auto 3.4 % (0-4.4); Hematocrit 44.4 % (37.0-47.0); Hemoglobin 14.3 g/dL (12.0-15.0); Immature Granulocyte Absolute 0.01 K/mm3 (0.00-0.031); Immature Granulocyte Percent A 0.2 % (0-0.5); Lymphocytes Absolute Auto 1.17 K/mm3 (0.9-3.2); Lymphocytes Percent Auto 26.6 % (18.3-44.2); Mean Corpuscular HGB Conc 32.2 g/dl (32-36); Mean Corpuscular Hemoglobin 29.3 pg (26-34); Mean Platelet Volume 10.5 fl (7.4-10.4); Monocytes Absolute Auto 0.3 K/mm3 (0.1-0.6); Monocytes Percent Auto 7.3 % (2.6-8.5); Neutrophils Absolute Auto 2.7 K/mm3 (1.3-6.7); Neutrophils Percent Auto 61.6 % (45.5-73.1); Platelet Count Result 172 k/mm3 (150-375); Red Blood Count 4.88 M/mm3 (4.2-5.4); Red Cell Distribution Width 13.3 % (11.5-14.5); White Blood Count 4.4 K/mm3 (4.5-10.0)
[2023-02-07 07:53] LABS: Alanine Aminotransferase 19 U/L (6-35); Albumin Level 4.2 g/dL (3.5-5.1); Alkaline Phosphatase 52 U/L (38-126); Anion Gap 5 mmol/L (8-16); Aspartate Amino Transferase 24 U/L (14-36); Bilirubin,Total 0.6 mg/dL (0.2-1.3); Blood Urea Nitrogen 13 mg/dL (7-17); Calcium 9.6 mg/dL (8.4-10.2); Carbon Dioxide 27 mmol/L (22-30); Chloride 106 mmol/L (98-107); Cholesterol 131 mg/dL (0-200); Estimated Glomerular Filt Rate > 60; Glucose 148 mg/dL (65-110); HDL Direct 63 mg/dL; Phosphorus 3.7 mg/dL (2.5-4.5); Potassium 3.9 mmol/L (3.4-5.0); Sodium 138 mmol/L (137-145); Triglycerides 62 mg/dL (<150)
[2023-02-07 08:04] LABS: LDL Cholesterol Direct 51 mg/dL
== END 2023-02-13 23:59 | disposition home or self-care (01) ==
LOC: ANHLAB 07:17
PROVIDERS: PCP Family Medicine; Visit Provider Internal Medicine
DX: Z94.0 Kidney transplant status (principal); E78.2 Mixed hyperlipidemia; E10.65 Type 1 diabetes mellitus with hyperglycemia; Z79.899 Other long term (current) drug therapy
CPT/HCPCS: 36415; 80061; 80069; 80076; 80197; 83036; 85025

== ENCOUNTER 2023-03-16 19:47 | Emergency (ER) | payer MEDICARE, SELFPAY ==
--- NOTE | ~2023-03-16 | CT_ITS ---
EXAMINATION: CT abdomen pelvis wo con DATE: 03/16/2023 20:32 INDICATION: Flank pain. Hematuria. TECHNIQUE: Computed tomography (CT) of the abdomen and pelvis was performed without intravenous contr ast. Automated exposure control and iterative reconstruction technique were employed. The dose-length product was 313.44 mGy-cm. COMPARISON: CT abdomen 06/17/2004 FINDINGS: The visualized portions of the lung bases demonstrate mild atelectasis. No pleural effusion . Cardiomegaly is noted. There are coronary artery calcifications. There is a small pericardial effus ion. There are numerous cysts in the liver measuring up to 7.8 cm. The gallbladder is normal. Calcifi cations in the spleen are consistent with old granulomatous disease. The pancreas and adrenal glands are normal. There are innumerable cysts in the kidneys. There are numerous parenchymal calcifications in the kidneys. No hydronephrosis. There is a transplant kidney in right iliac fossa. There are calc ified fibroids in the uterus. There is diverticulosis of the colon without evidence of diverticulitis . The appendix is normal. There are no dilated loops of bowel. There is subcutaneous fat stranding in anterior abdominal wall bilaterally. There is calcified atherosclerosis of the aorta and many of the other arteries. There are no pathologically enlarged lymph nodes. There is no free intraperitoneal f luid. There is mild lumbar spondylosis. There is moderate osteoarthritis of the hips. IMPRESSION: 1. Polycystic kidney disease. 2. Unremarkable transplant kidney. 3. Small pericardial effusion. 4. Subcutaneous fat stranding in anterior abdominal wall bilaterally, consistent with inflammation ve rsus scarring. Reviewed, dictated and finalized at location E. IMPRESSION: 1. Polycystic kidney disease. 2. Unremarkable transplant kidney. 3. Small pericardial effusion. 4. Subcutaneous fat stranding in anterior abdominal wall bilaterally, consisten t with inflammation versus scarring.
[2023-03-16 19:53] VITALS: BP 160/60; PULSE 78; RESP 18; TEMP 36.8; O2SAT 100
[2023-03-16 20:16] LABS: Add Urine Microscopic? YES; Appearance Urine Clear (Clear); Bacteria Urine None Seen /hpf; Bilirubin Urine Negative (Negative); Blood Urine 3+ (Negative); Color Urine Yellow (Yellow); Glucose Urine UA Negative (Negative); Ketones Urine Negative (Negative); Leukocyte Esterase Ur Trace LEU/UL (Negative); Nitrate Urine Negative (Negative); Non Pathogenic Casts 0-2; Protein Urine Negative (Negative); Specific Grav Ur 1.006 (1.001-1.035); Squamous Epithelial Cell Urine None seen /hpf (Few); Urobilinogen Urine 0.2 mg/dL (<2.0); WBC Urine 0-5 /hpf; pH Urine 7.5 (5.0-9.0)
[2023-03-16 20:42] LABS: Basophils Percent Auto 0.3 % (0.2-1.2); Eosinophils Percent Auto 0.7 % (0-4.4); Hematocrit 43.4 % (37.0-47.0); Immature Granulocyte Absolute 0.01 K/mm3 (0.00-0.031); Immature Granulocyte Percent A 0.2 % (0-0.5); Lymphocytes Absolute Auto 1.08 K/mm3 (0.9-3.2); Lymphocytes Percent Auto 18.8 % (18.3-44.2); Mean Corpuscular HGB Conc 32.3 g/dl (32-36); Mean Corpuscular Hemoglobin 29.8 pg (26-34); Mean Corpuscular Volume 92.3 fl (80-100); Mean Platelet Volume 10.7 fl (7.4-10.4); Monocytes Absolute Auto 0.4 K/mm3 (0.1-0.6); Monocytes Percent Auto 7.5 % (2.6-8.5); Neutrophils Absolute Auto 4.2 K/mm3 (1.3-6.7); Neutrophils Percent Auto 72.5 % (45.5-73.1); Platelet Count Result 177 k/mm3 (150-375); Red Cell Distribution Width 13.3 % (11.5-14.5); White Blood Count 5.8 K/mm3 (4.5-10.0)
[2023-03-16 20:51] LABS: Anion Gap 3 mmol/L (8-16); Blood Urea Nitrogen 12 mg/dL (7-17); Calcium 10.1 mg/dL (8.4-10.2); Carbon Dioxide 29 mmol/L (22-30); Chloride 104 mmol/L (98-107); Estimated CRCL calculation 60 ml/min; Estimated Glomerular Filt Rate > 60; Glucose 196 mg/dL (65-110); Potassium 4.4 mmol/L (3.4-5.0); Sodium 136 mmol/L (137-145)
[2023-03-16 20:53] LABS: Prothrombin Time 13.7 Seconds (11.1-14.7)
--- NOTE | 2023-03-16 21:00 | ED.GENADULT ---
HPI - General Adult General Chief complaint: Urogenital-Female Stated complaint: blood in urine Time Seen by Provider: 03/16/23 20:07 Source: patient Mode of arrival: ambulatory Limitations: no limitations History of Present Illness HPI narrative: 77-year-old with a history of hypertension, insulin requiring diabetes, polycystic kidney disease, s/p kidney transplant 16 years ago. With complaint 2-day history of blood in the urine. She also complains of left flank pain. Patient states that she has seen her transplant team early part of this month and was told everything was unremarkable. She denies any fever or chills. Has occasional lower abdominal pain. Onset (ago): day(s) (2) Location: back (Left flank) Radiation: abdomen (Lower abdomen) Severity: mild Quality: aching Pain Consistency: constant Relieving factors: none Exacerbating factors: none Associated symptoms: denies other symptoms Related Data Home Medications Medication Instructions Recorded Confirmed mycophenolate sodium 360 mg PO 06/17/20 12/14/22 tablet,delayed release multivitamin 1 tablet PO DAILY 04/07/22 12/14/22 prednisone 2.5 mg tablet 2.5 mg PO DAILY 04/07/22 12/14/22 tacrolimus 1 mg capsule, 1.5 mg PO DAILY 04/07/22 12/14/22 immediate-release vitamins A,C,K-eqsj-bteyif 4,296 1 cap PO BID 04/07/22 12/14/22 mcg-226 mg-90 mg capsule (PreserVision AREDS) cholecalciferol (vitamin D3) 25 1,000 unit PO BID 12/14/22 12/14/22 mcg (1,000 unit) capsule insulin aspart U-100 100 unit/mL 10 unit subcut TID 12/14/22 12/14/22 (3 mL) subcutaneous pen (Novolog FlexPen U-100 Insulin aspart) insulin glargine U-300 conc 300 25 unit subcut DAILY 12/14/22 12/14/22 unit/mL (3 mL) subcutaneous pen (Toujeo Max U-300 SoloStar) Allergies Allergy/AdvReac Type Severity Reaction Status Date / Time labetalol Allergy Unknown head itches Verified 03/16/23 19:48 Penicillins Allergy Unknown Nausea Verified 03/16/23 19:48 Review of Systems Review of Systems: All systems reviewed & are unremarkable except as noted in HPI and below Constitutional: Constitutional: Reports no additional constitutional complaints Eyes: Eyes: Reports no additional eye complaints ENT: Reports system reviewed and no additional complaints, except as documented Cardiovascular: Cardiovascular: Reports no additional cardiovascular complaints Respiratory: Respiratory: Reports no additional respiratory complaints Gastrointestinal: Gastrointestinal: Reports as per HPI Genitourinary: Genitourinary: Reports as per HPI Musculoskeletal: Musculoskeletal: Reports no additional musculoskeletal complaints Integumentary/Breasts: Skin/Breast: Reports system reviewed and no additional complaints, except as docu PMFSH Past Medical History Medical History Osteoporosis Surgical History Surgical History H/O tubal ligation Kidney transplant recipient Family History Family History Mother Diabetes mellitus, Onset Age: 67 Hypertension, Onset Age: 67 Cerebrovascular accident, Onset Age: 67 Family history of kidney disease, Onset Age: 67 Father Hypertension, Onset Age: 69 Cerebrovascular accident, Onset Age: 69 Social History Social History (Updated 12/14/22 @ 09:14 by Yesy Holly [facility]) Smoking status: Never smoker Second hand tobacco smoke exposure: No Alcohol intake: never Lack of Transportation: No Lack of Food: Never True Current Housing: I Have Housing Concerned About Future Housing: No Difficulty Paying Gas/Electric Bills: No Difficulty Paying for Meds: No Currently Unemployed: No Education: High School Diploma/GED Difficulty w/ Childcare or Family Care: No Exam Narrative: GENERAL: Well-appearing, well-nourished, and in no acute distre
== END 2023-03-16 21:33 | disposition home or self-care (01) ==
PROVIDERS: Emergency Medicine; Emergency Provider Family Medicine; PCP Family Medicine
DX: R31.9 Hematuria, unspecified (principal); E11.9 Type 2 diabetes mellitus without complications; I10 Essential (primary) hypertension; Q61.3 Polycystic kidney, unspecified; Z94.0 Kidney transplant status; Z79.4 Long term (current) use of insulin; M81.0 Age-related osteoporosis without current pathological fracture
CPT/HCPCS: 36415; 74176; 80048; 81001; 85025; 85610; 99284

== ENCOUNTER 2023-03-17 14:36 | Outpatient (CLI) | payer MEDICARE, SELFPAY ==
[2023-03-17 14:58] LABS: Basophils Percent Auto 0.3 % (0.2-1.2); Eosinophils Percent Auto 0.3 % (0-4.4); Hematocrit 41.5 % (37.0-47.0); Hemoglobin 13.2 g/dL (12.0-15.0); Immature Granulocyte Absolute 0.02 K/mm3 (0.00-0.031); Immature Granulocyte Percent A 0.3 % (0-0.5); Lymphocytes Absolute Auto 0.95 K/mm3 (0.9-3.2); Lymphocytes Percent Auto 14.4 % (18.3-44.2); Mean Corpuscular HGB Conc 31.8 g/dl (32-36); Mean Corpuscular Hemoglobin 29.3 pg (26-34); Mean Corpuscular Volume 92.2 fl (80-100); Mean Platelet Volume 10.6 fl (7.4-10.4); Monocytes Absolute Auto 0.4 K/mm3 (0.1-0.6); Monocytes Percent Auto 5.3 % (2.6-8.5); Neutrophils Absolute Auto 5.2 K/mm3 (1.3-6.7); Neutrophils Percent Auto 79.4 % (45.5-73.1); Platelet Count Result 176 k/mm3 (150-375); Red Cell Distribution Width 13.2 % (11.5-14.5); White Blood Count 6.6 K/mm3 (4.5-10.0)
[2023-03-17 15:12] LABS: Alanine Aminotransferase 18 U/L (6-35); Albumin Level 4.2 g/dL (3.5-5.1); Alkaline Phosphatase 53 U/L (38-126); Anion Gap 5 mmol/L (8-16); Aspartate Amino Transferase 26 U/L (14-36); Bilirubin,Total 0.6 mg/dL (0.2-1.3); Blood Urea Nitrogen 11 mg/dL (7-17); Calcium 9.4 mg/dL (8.4-10.2); Carbon Dioxide 26 mmol/L (22-30); Chloride 101 mmol/L (98-107); Estimated Glomerular Filt Rate > 60; Glucose 248 mg/dL (65-110); Potassium 4.4 mmol/L (3.4-5.0); Sodium 132 mmol/L (137-145)
[2023-03-17 15:18] LABS: Appearance Urine Cloudy (Clear); Bilirubin Urine Negative (Negative); Blood Urine 3+ (Negative); Glucose Urine UA Negative (Negative); Ketones Urine Negative (Negative); Leukocyte Esterase Ur Trace LEU/UL (NEGATIVE); Nitrate Urine Negative (Negative); Protein Urine 2+ mg/dL (Negative); Specific Grav Ur 1.006 (1.001-1.035); Urobilinogen Urine 0.2 mg/dL (<2.0); pH Urine 7.5 (5.0-9.0)
[2023-03-17 15:26] LABS: Color Urine Dark Yellow (Yellow)
[2023-03-17 15:27] LABS: RBC Urine >100 /hpf (0-2); WBC Urine 0-5 /hpf (0-3)
[2023-03-17 15:28] LABS: Add Urine Microscopic? YES
== END 2023-03-17 14:37 | disposition home or self-care (01) ==
PROVIDERS: PCP Family Medicine; Visit Provider Internal Medicine
DX: Z94.0 Kidney transplant status (principal)
CPT/HCPCS: 36415; 80053; 81001; 85025; 87086

== ENCOUNTER 2023-04-01 13:12 | Emergency (ER) | payer MEDICARE, SELFPAY ==
[2023-04-01 13:13] VITALS: BP 174/62; PULSE 82; RESP 20; TEMP 36.8; O2SAT 98
[2023-04-01 14:35] VITALS: BP 130/53; PULSE 74; RESP 20; O2SAT 95
[2023-04-01 14:40] LABS: Basophils Percent Auto 0.3 % (0.2-1.2); Eosinophils Percent Auto 0.3 % (0-4.4); Hematocrit 42.5 % (37.0-47.0); Hemoglobin 14.1 g/dL (12.0-15.0); Immature Granulocyte Absolute 0.02 K/mm3 (0.00-0.031); Immature Granulocyte Percent A 0.3 % (0-0.5); Lymphocytes Absolute Auto 0.82 K/mm3 (0.9-3.2); Lymphocytes Percent Auto 12.1 % (18.3-44.2); Mean Corpuscular HGB Conc 33.2 g/dl (32-36); Mean Corpuscular Hemoglobin 30.5 pg (26-34); Mean Corpuscular Volume 91.8 fl (80-100); Mean Platelet Volume 10.8 fl (7.4-10.4); Monocytes Absolute Auto 0.3 K/mm3 (0.1-0.6); Monocytes Percent Auto 4.1 % (2.6-8.5); Neutrophils Absolute Auto 5.6 K/mm3 (1.3-6.7); Neutrophils Percent Auto 82.9 % (45.5-73.1); Platelet Count Result 161 k/mm3 (150-375); Red Blood Count 4.63 M/mm3 (4.2-5.4); Red Cell Distribution Width 13.5 % (11.5-14.5); White Blood Count 6.8 K/mm3 (4.5-10.0)
[2023-04-01 14:51] LABS: Alanine Aminotransferase 19 U/L (6-35); Albumin Level 4.2 g/dL (3.5-5.1); Alkaline Phosphatase 40 U/L (38-126); Anion Gap 5 mmol/L (8-16); Aspartate Amino Transferase 28 U/L (14-36); Bilirubin,Total 0.6 mg/dL (0.2-1.3); Blood Urea Nitrogen 12 mg/dL (7-17); Calcium 9.9 mg/dL (8.4-10.2); Carbon Dioxide 25 mmol/L (22-30); Chloride 106 mmol/L (98-107); Estimated CRCL calculation 71 ml/min; Estimated Glomerular Filt Rate > 60; Glucose 190 mg/dL (65-110); Potassium 4.3 mmol/L (3.4-5.0); Sodium 136 mmol/L (137-145)
[2023-04-01 14:58] LABS: Bacteria Urine None Seen /hpf; Need Manual Microscopic Reviewed; Non Pathogenic Casts 0-2; RBC Urine >100 /hpf (0-2); Squamous Epithelial Cell Urine None seen /hpf (Few); WBC Urine 0-5 /hpf
[2023-04-01 15:01] LABS: Add Urine Microscopic? YES; Appearance Urine Slightly Cloudy (Clear); Bilirubin Urine Negative (Negative); Blood Urine 3+ (Negative); Color Urine Amber (Yellow); Glucose Urine UA Negative (Negative); Ketones Urine Negative (Negative); Leukocyte Esterase Ur Negative LEU/UL (Negative); Nitrate Urine Negative (Negative); Protein Urine 2+ mg/dL (Negative); Urobilinogen Urine 0.2 mg/dL (<2.0)
--- NOTE | 2023-04-01 16:16 | ED.GENADULT ---
HPI - General Adult General Chief complaint: Urogenital-Female Stated complaint: blood in urine Time Seen by Provider: 04/01/23 13:26 History of Present Illness HPI narrative: Patient is a 77-year-old female with history of polycystic kidney disease who presents ER with hematuria. Began today. Associate with some aching across her back. Similar to an event that occurred several weeks ago. At that time she had a CT scan that showed no kidney stones. She had no infection in her urine. She subsequently was discharged home. Patient has had a kidney transplant and is concerned that the kidney transplant may be injured by the bleeding. Denies any trauma to the abdomen. No additional concerns. No dysuria urinary frequency or retention. Related Data Home Medications Medication Instructions Recorded Confirmed mycophenolate sodium 360 mg PO 06/17/20 12/14/22 tablet,delayed release multivitamin 1 tablet PO DAILY 04/07/22 12/14/22 prednisone 2.5 mg tablet 2.5 mg PO DAILY 04/07/22 12/14/22 tacrolimus 1 mg capsule, 1.5 mg PO DAILY 04/07/22 12/14/22 immediate-release vitamins A,C,Z-bfee-pchwxh 4,296 1 cap PO BID 04/07/22 12/14/22 mcg-226 mg-90 mg capsule (PreserVision AREDS) cholecalciferol (vitamin D3) 25 1,000 unit PO BID 12/14/22 12/14/22 mcg (1,000 unit) capsule insulin aspart U-100 100 unit/mL 10 unit subcut TID 12/14/22 12/14/22 (3 mL) subcutaneous pen (Novolog FlexPen U-100 Insulin aspart) insulin glargine U-300 conc 300 25 unit subcut DAILY 12/14/22 12/14/22 unit/mL (3 mL) subcutaneous pen (Toujeo Max U-300 SoloStar) Allergies Allergy/AdvReac Type Severity Reaction Status Date / Time labetalol Allergy Unknown head itches Verified 04/01/23 14:37 Penicillins Allergy Unknown Nausea Verified 04/01/23 14:37 Review of Systems Review of Systems: All systems reviewed & are unremarkable except as noted in HPI and below Constitutional: Constitutional: Denies chills and Denies fever(s) Gastrointestinal: Gastrointestinal: Denies abdominal pain, Denies nausea and Denies vomiting Genitourinary: Genitourinary: Reports hematuria, Denies nocturia, Denies dysuria and Reports flank pain PMFSH Past Medical History Medical History (Updated 04/01/23 @ 16:21 by Miguel Ángel Blake MD) Aortic heart murmur Essential (primary) hypertension Hypothyroidism, unspecified Mixed hyperlipidemia Osteoporosis Type 2 diabetes mellitus with chronic kidney disease, without long-term current use of insulin Surgical History Surgical History (Updated 04/01/23 @ 16:21 by Miguel Ángel Blake MD) H/O tubal ligation Kidney transplant recipient Kidney transplant recipient Family History Family History Mother Diabetes mellitus, Onset Age: 67 Hypertension, Onset Age: 67 Cerebrovascular accident, Onset Age: 67 Family history of kidney disease, Onset Age: 67 Father Hypertension, Onset Age: 69 Cerebrovascular accident, Onset Age: 69 Social History Social History (Updated 12/14/22 @ 09:14 by Yesy Holly [facility]) Smoking status: Never smoker Second hand tobacco smoke exposure: No Alcohol intake: never Lack of Transportation: No Lack of Food: Never True Current Housing: I Have Housing Concerned About Future Housing: No Difficulty Paying Gas/Electric Bills: No Difficulty Paying for Meds: No Currently Unemployed: No Education: High School Diploma/GED Difficulty w/ Childcare or Family Care: No Exam Narrative: GENERAL: Well-appearing, well-nourished, and in no acute distress. HEAD: Normocephalic, atraumatic. ENT: Mucous membranes moist. CHEST: Clear to auscultation. No respiratory distress. HEART: Regular rate and rhythm. Normal peripheral pulses. ABDOMEN: Soft, nontender, nondistended. No CVA tenderness. EXTREMITIES: Normal range of motion. No edema. SKIN: Warm, dry, no rash. NEURO: Alert and or
[2023-04-01 17:28] VITALS: BP 133/75; PULSE 78; RESP 18; O2SAT 99
== END 2023-04-01 17:30 | disposition home or self-care (01) ==
PROVIDERS: Emergency Provider Emergency Medicine; PCP Family Medicine
DX: R31.9 Hematuria, unspecified (principal); Z94.0 Kidney transplant status; Q61.3 Polycystic kidney, unspecified; I12.9 Hypertensive chronic kidney disease with stage 1 through stage 4 chronic kidney disease, or unspecified chronic kidney disease; E03.9 Hypothyroidism, unspecified; E78.2 Mixed hyperlipidemia; E11.22 Type 2 diabetes mellitus with diabetic chronic kidney disease; N18.9 Chronic kidney disease, unspecified; M81.0 Age-related osteoporosis without current pathological fracture; Z79.4 Long term (current) use of insulin
CPT/HCPCS: 36415; 80053; 81001; 85025; 99283

== ENCOUNTER 2023-05-09 07:07 | Outpatient (RCR) | payer MEDICARE, SELFPAY ==
[2023-03-07 07:51] LABS: Basophils Percent Auto 0.6 % (0.2-1.2); Eosinophils Absolute Auto 0.2 K/mm3 (0-0.3); Eosinophils Percent Auto 3.2 % (0-4.4); Hematocrit 43.9 % (37.0-47.0); Hemoglobin 14.3 g/dL (12.0-15.0); Immature Granulocyte Absolute 0.01 K/mm3 (0.00-0.031); Immature Granulocyte Percent A 0.2 % (0-0.5); Lymphocytes Absolute Auto 1.21 K/mm3 (0.9-3.2); Lymphocytes Percent Auto 24.3 % (18.3-44.2); Mean Corpuscular HGB Conc 32.6 g/dl (32-36); Mean Corpuscular Hemoglobin 30.2 pg (26-34); Mean Corpuscular Volume 92.8 fl (80-100); Mean Platelet Volume 10.3 fl (7.4-10.4); Monocytes Absolute Auto 0.4 K/mm3 (0.1-0.6); Monocytes Percent Auto 7.2 % (2.6-8.5); Neutrophils Absolute Auto 3.2 K/mm3 (1.3-6.7); Neutrophils Percent Auto 64.5 % (45.5-73.1); Platelet Count Result 169 k/mm3 (150-375); Red Blood Count 4.73 M/mm3 (4.2-5.4); Red Cell Distribution Width 13.3 % (11.5-14.5)
[2023-03-07 08:04] LABS: Anion Gap 6 mmol/L (8-16); Blood Urea Nitrogen 14 mg/dL (7-17); Calcium 9.5 mg/dL (8.4-10.2); Carbon Dioxide 28 mmol/L (22-30); Chloride 105 mmol/L (98-107); Estimated Glomerular Filt Rate > 60; Glucose 142 mg/dL (65-110); Phosphorus 3.9 mg/dL (2.5-4.5); Potassium 3.8 mmol/L (3.4-5.0); Sodium 139 mmol/L (137-145)
[2023-03-10 17:08] LABS: Tacrolimus Prograf 3.2 mcg/L
[2023-04-11 07:43] LABS: Basophils Percent Auto 0.8 % (0.2-1.2); Eosinophils Absolute Auto 0.2 K/mm3 (0-0.3); Eosinophils Percent Auto 3.8 % (0-4.4); Hematocrit 43.9 % (37.0-47.0); Hemoglobin 13.9 g/dL (12.0-15.0); Immature Granulocyte Absolute 0.01 K/mm3 (0.00-0.031); Immature Granulocyte Percent A 0.2 % (0-0.5); Lymphocytes Percent Auto 19.8 % (18.3-44.2); Mean Corpuscular HGB Conc 31.7 g/dl (32-36); Mean Corpuscular Hemoglobin 29.3 pg (26-34); Mean Corpuscular Volume 92.4 fl (80-100); Mean Platelet Volume 10.3 fl (7.4-10.4); Monocytes Absolute Auto 0.5 K/mm3 (0.1-0.6); Monocytes Percent Auto 9.1 % (2.6-8.5); Neutrophils Absolute Auto 3.3 K/mm3 (1.3-6.7); Neutrophils Percent Auto 66.3 % (45.5-73.1); Platelet Count Result 154 k/mm3 (150-375); Red Blood Count 4.75 M/mm3 (4.2-5.4); Red Cell Distribution Width 13.3 % (11.5-14.5)
[2023-04-11 07:52] LABS: Albumin Level 4.1 g/dL (3.5-5.1); Anion Gap 4 mmol/L (8-16); Blood Urea Nitrogen 10 mg/dL (7-17); Calcium 9.7 mg/dL (8.4-10.2); Carbon Dioxide 30 mmol/L (22-30); Chloride 105 mmol/L (98-107); Cholesterol 124 mg/dL (0-200); Estimated Glomerular Filt Rate > 60; Glucose 148 mg/dL (65-110); HDL Direct 74 mg/dL; Hemoglobin A1C 7.1 % (<5.7); Phosphorus 3.5 mg/dL (2.5-4.5); Potassium 3.9 mmol/L (3.4-5.0); Sodium 139 mmol/L (137-145); Triglycerides 47 mg/dL (<150)
[2023-04-11 08:03] LABS: LDL Cholesterol Direct 44 mg/dL
[2023-04-14 09:49] LABS: Tacrolimus Prograf 3.3 mcg/L
[2023-05-09 07:34] LABS: Basophils Percent Auto 0.6 % (0.2-1.2); Eosinophils Absolute Auto 0.2 K/mm3 (0-0.3); Eosinophils Percent Auto 3.6 % (0-4.4); Hematocrit 42.4 % (37.0-47.0); Hemoglobin 13.7 g/dL (12.0-15.0); Immature Granulocyte Absolute 0.01 K/mm3 (0.00-0.031); Immature Granulocyte Percent A 0.2 % (0-0.5); Lymphocytes Absolute Auto 1.26 K/mm3 (0.9-3.2); Lymphocytes Percent Auto 25.1 % (18.3-44.2); Mean Corpuscular HGB Conc 32.3 g/dl (32-36); Mean Corpuscular Hemoglobin 30.2 pg (26-34); Mean Corpuscular Volume 93.6 fl (80-100); Mean Platelet Volume 10.8 fl (7.4-10.4); Monocytes Absolute Auto 0.4 K/mm3 (0.1-0.6); Monocytes Percent Auto 7.8 % (2.6-8.5); Neutrophils Absolute Auto 3.1 K/mm3 (1.3-6.7); Neutrophils Percent Auto 62.7 % (45.5-73.1); Platelet Count Result 181 k/mm3 (150-375); Red Blood Count 4.53 M/mm3 (4.2-5.4); Red Cell Distribution Width 13.8 % (11.5-14.5)
[2023-05-09 07:37] LABS: Alanine Aminotransferase 21 U/L (6-35); Albumin Level 3.9 g/dL (3.5-5.1); Alkaline Phosphatase 40 U/L (38-126); Anion Gap 4 mmol/L (8-16); Aspartate Amino Transferase 27 U/L (14-36); Bilirubin,Total 0.6 mg/dL (0.2-1.3); Blood Urea Nitrogen 13 mg/dL (7-17); Calcium 9.5 mg/dL (8.4-10.2); Carbon Dioxide 31 mmol/L (22-30); Chloride 104 mmol/L (98-107); Cholesterol 131 mg/dL (0-200); Estimated Glomerular Filt Rate > 60; Glucose 144 mg/dL (65-110); HDL Direct 67 mg/dL; Phosphorus 4.2 mg/dL (2.5-4.5); Potassium 4.1 mmol/L (3.4-5.0); Sodium 139 mmol/L (137-145); Triglycerides 43 mg/dL (<150)
[2023-05-09 07:42] LABS: Hemoglobin A1C 7.2 % (<5.7)
[2023-05-09 07:48] LABS: LDL Cholesterol Direct 46 mg/dL
== END 2023-06-05 23:59 | disposition home or self-care (01) ==
LOC: ANHLAB 07:07
PROVIDERS: PCP Internal Medicine; Visit Provider Internal Medicine
DX: E10.65 Type 1 diabetes mellitus with hyperglycemia (principal); E78.2 Mixed hyperlipidemia; Z94.0 Kidney transplant status
CPT/HCPCS: 36415; 80061; 80069; 80076; 80197; 83036; 85025

== ENCOUNTER 2023-08-16 07:16 | Outpatient (RCR) | payer MEDICARE, SELFPAY ==
[2023-06-13 07:55] LABS: Basophils Percent Auto 0.9 % (0.2-1.2); Eosinophils Absolute Auto 0.1 K/mm3 (0-0.3); Eosinophils Percent Auto 3.1 % (0-4.4); Hematocrit 45.7 % (37.0-47.0); Hemoglobin 14.3 g/dL (12.0-15.0); Immature Granulocyte Absolute 0.02 K/mm3 (0.00-0.031); Immature Granulocyte Percent A 0.4 % (0-0.5); Lymphocytes Absolute Auto 1.31 K/mm3 (0.9-3.2); Lymphocytes Percent Auto 28.8 % (18.3-44.2); Mean Corpuscular HGB Conc 31.3 g/dl (32-36); Mean Corpuscular Hemoglobin 28.9 pg (26-34); Mean Corpuscular Volume 92.5 fl (80-100); Mean Platelet Volume 10.6 fl (7.4-10.4); Monocytes Absolute Auto 0.3 K/mm3 (0.1-0.6); Monocytes Percent Auto 7.5 % (2.6-8.5); Neutrophils Absolute Auto 2.7 K/mm3 (1.3-6.7); Neutrophils Percent Auto 59.3 % (45.5-73.1); Platelet Count Result 182 k/mm3 (150-375); Red Blood Count 4.94 M/mm3 (4.2-5.4); Red Cell Distribution Width 13.4 % (11.5-14.5); White Blood Count 4.6 K/mm3 (4.5-10.0)
[2023-06-13 08:26] LABS: Alanine Aminotransferase 19 U/L (6-35); Albumin Level 4.3 g/dL (3.5-5.1); Alkaline Phosphatase 45 U/L (38-126); Anion Gap 3 mmol/L (8-16); Aspartate Amino Transferase 27 U/L (14-36); Bilirubin,Total 1.1 mg/dL (0.2-1.3); Blood Urea Nitrogen 12 mg/dL (7-17); Carbon Dioxide 27 mmol/L (22-30); Chloride 105 mmol/L (98-107); Cholesterol 144 mg/dL (0-200); Estimated Glomerular Filt Rate > 60; Glucose 146 mg/dL (65-110); HDL Direct 77 mg/dL; Phosphorus 3.9 mg/dL (2.5-4.5); Sodium 135 mmol/L (137-145); Triglycerides 46 mg/dL (<150)
[2023-06-13 08:28] LABS: Hemoglobin A1C 7.3 % (<5.7)
[2023-06-13 08:37] LABS: LDL Cholesterol Direct 55 mg/dL
[2023-06-16 11:26] LABS: Tacrolimus Prograf 2.9 mcg/L
[2023-07-19 08:28] LABS: Basophils Percent Auto 0.4 % (0.2-1.2); Eosinophils Absolute Auto 0.2 K/mm3 (0-0.3); Eosinophils Percent Auto 3.3 % (0-4.4); Hematocrit 42.7 % (37.0-47.0); Hemoglobin 13.6 g/dL (12.0-15.0); Immature Granulocyte Absolute 0.01 K/mm3 (0.00-0.031); Immature Granulocyte Percent A 0.2 % (0-0.5); Lymphocytes Absolute Auto 1.19 K/mm3 (0.9-3.2); Lymphocytes Percent Auto 24.8 % (18.3-44.2); Mean Corpuscular HGB Conc 31.9 g/dl (32-36); Mean Corpuscular Volume 94.1 fl (80-100); Mean Platelet Volume 11.1 fl (7.4-10.4); Monocytes Absolute Auto 0.3 K/mm3 (0.1-0.6); Monocytes Percent Auto 7.1 % (2.6-8.5); Neutrophils Absolute Auto 3.1 K/mm3 (1.3-6.7); Neutrophils Percent Auto 64.2 % (45.5-73.1); Platelet Count Result 167 k/mm3 (150-375); Red Blood Count 4.54 M/mm3 (4.2-5.4); Red Cell Distribution Width 13.4 % (11.5-14.5); White Blood Count 4.8 K/mm3 (4.5-10.0)
[2023-07-19 08:40] LABS: Alanine Aminotransferase 18 U/L (6-35); Albumin Level 4.1 g/dL (3.5-5.1); Alkaline Phosphatase 52 U/L (38-126); Anion Gap 6 mmol/L (8-16); Aspartate Amino Transferase 25 U/L (14-36); Bilirubin,Total 0.5 mg/dL (0.2-1.3); Blood Urea Nitrogen 14 mg/dL (7-17); Calcium 9.2 mg/dL (8.4-10.2); Carbon Dioxide 26 mmol/L (22-30); Chloride 106 mmol/L (98-107); Cholesterol 127 mg/dL (0-200); Estimated Glomerular Filt Rate > 60; Glucose 188 mg/dL (65-110); HDL Direct 77 mg/dL; Phosphorus 3.1 mg/dL (2.5-4.5); Potassium 3.6 mmol/L (3.4-5.0); Sodium 138 mmol/L (137-145); Triglycerides 46 mg/dL (<150)
[2023-07-19 08:50] LABS: LDL Cholesterol Direct 48 mg/dL
[2023-07-19 08:57] LABS: Hemoglobin A1C 7.5 % (<5.7)
[2023-07-21 18:50] LABS: Tacrolimus Prograf 2.9 mcg/L
[2023-08-16 08:03] LABS: Basophils Percent Auto 0.6 % (0.2-1.2); Eosinophils Absolute Auto 0.2 K/mm3 (0-0.3); Eosinophils Percent Auto 3.9 % (0-4.4); Hematocrit 43.6 % (37.0-47.0); Hemoglobin 13.8 g/dL (12.0-15.0); Immature Granulocyte Absolute 0.01 K/mm3 (0.00-0.031); Immature Granulocyte Percent A 0.2 % (0-0.5); Lymphocytes Absolute Auto 1.49 K/mm3 (0.9-3.2); Lymphocytes Percent Auto 30.8 % (18.3-44.2); Mean Corpuscular HGB Conc 31.7 g/dl (32-36); Mean Corpuscular Hemoglobin 29.6 pg (26-34); Mean Corpuscular Volume 93.6 fl (80-100); Mean Platelet Volume 10.9 fl (7.4-10.4); Monocytes Absolute Auto 0.4 K/mm3 (0.1-0.6); Monocytes Percent Auto 8.3 % (2.6-8.5); Neutrophils Absolute Auto 2.7 K/mm3 (1.3-6.7); Neutrophils Percent Auto 56.2 % (45.5-73.1); Platelet Count Result 161 k/mm3 (150-375); Red Blood Count 4.66 M/mm3 (4.2-5.4); Red Cell Distribution Width 13.6 % (11.5-14.5); White Blood Count 4.8 K/mm3 (4.5-10.0)
[2023-08-16 08:14] LABS: Albumin Level 4.1 g/dL (3.5-5.1); Anion Gap 4 mmol/L (8-16); Blood Urea Nitrogen 12 mg/dL (7-17); Calcium 9.9 mg/dL (8.4-10.2); Carbon Dioxide 28 mmol/L (22-30); Chloride 106 mmol/L (98-107); Estimated Glomerular Filt Rate > 60; Glucose 124 mg/dL (65-110); Phosphorus 3.6 mg/dL (2.5-4.5); Potassium 3.8 mmol/L (3.4-5.0); Sodium 138 mmol/L (137-145)
[2023-08-20 01:18] LABS: Tacrolimus Prograf 4.3 mcg/L
== END 2023-09-11 23:59 | disposition home or self-care (01) ==
LOC: ANHLAB 07:16
PROVIDERS: PCP Family Medicine; Visit Provider Internal Medicine
DX: E10.65 Type 1 diabetes mellitus with hyperglycemia (principal); E78.2 Mixed hyperlipidemia; Z94.0 Kidney transplant status
CPT/HCPCS: 36415; 80061; 80069; 80076; 80197; 83036; 85025

== ENCOUNTER 2023-10-12 10:44 | Emergency (ER) | payer MEDICARE, SELFPAY ==
--- NOTE | ~2023-10-12 | US_ITS ---
EXAMINATION: US venous doppler LE RT DATE: 10/12/2023 11:46 INDICATION: Right lower limb pain TECHNIQUE: Schuler scale images without and with compression and Doppler images of the right lower extre mity veins were obtained. COMPARISON: None FINDINGS: The right common femoral vein, profunda femoral vein, femoral vein, popliteal vein, peronea l trunk, posterior tibial veins, and greater saphenous vein are patent. IMPRESSION: 1. Patent right lower extremity veins. No evidence of deep venous thrombosis. Reviewed, dictated and finalized at location L. MACHINE OPERATOR
[2023-10-12 10:44] VITALS: BP 152/56; PULSE 70; RESP 16; TEMP 36.6; O2SAT 99
--- NOTE | 2023-10-12 12:37 | ED.GENADULT ---
HPI - General Adult General Chief complaint: Extremity Problem,Nontraumatic Stated complaint: R LOWER LEG PAIN Time Seen by Provider: 10/12/23 12:05 History of Present Illness HPI narrative: Patient is a 70-year-old female who presents ER with right calf pain. Began today. Pinpoint over the lateral right calf. No swelling to the leg. Went to an urgent care who recommended she seek evaluation for DVT. No chest pain or shortness of breath. No recent trauma. No history of cancer. She has found no alleviating factors. Related Data Home Medications Medication Instructions Recorded Confirmed mycophenolate sodium 360 mg PO 06/17/20 06/14/23 tablet,delayed release multivitamin 1 tablet PO DAILY 04/07/22 06/14/23 prednisone 2.5 mg tablet 2.5 mg PO DAILY 04/07/22 06/14/23 tacrolimus 1 mg capsule, 1.5 mg PO DAILY 04/07/22 06/14/23 immediate-release vitamins A,C,X-qdgp-yxhtae 4,296 1 cap PO BID 04/07/22 06/14/23 mcg-226 mg-90 mg capsule (PreserVision AREDS) cholecalciferol (vitamin D3) 25 1,000 unit PO BID 12/14/22 06/14/23 mcg (1,000 unit) capsule insulin aspart U-100 100 unit/mL 10 unit subcut TID 12/14/22 06/14/23 (3 mL) subcutaneous pen (Novolog FlexPen U-100 Insulin aspart) insulin glargine U-300 conc 300 25 unit subcut DAILY 12/14/22 06/14/23 unit/mL (3 mL) subcutaneous pen (Toujeo Max U-300 SoloStar) Allergies Allergy/AdvReac Type Severity Reaction Status Date / Time labetalol Allergy Unknown head itches Verified 06/14/23 09:13 Penicillins Allergy Unknown Nausea Verified 06/14/23 09:13 Review of Systems Constitutional: Constitutional: Reports no additional constitutional complaints Cardiovascular: Cardiovascular: Reports no additional cardiovascular complaints Musculoskeletal: Musculoskeletal: Denies arthralgias and Denies joint swelling Comments: Calf pain PMFSH Past Medical History Medical History Aortic heart murmur Essential (primary) hypertension Hypothyroidism, unspecified Mixed hyperlipidemia Osteoporosis Type 2 diabetes mellitus with chronic kidney disease, without long-term current use of insulin Surgical History Surgical History H/O tubal ligation Kidney transplant recipient Kidney transplant recipient Family History Family History Mother Diabetes mellitus, Onset Age: 67 Hypertension, Onset Age: 67 Cerebrovascular accident, Onset Age: 67 Family history of kidney disease, Onset Age: 67 Father Hypertension, Onset Age: 69 Cerebrovascular accident, Onset Age: 69 Social History Social History Smoking status: Never smoker Second hand tobacco smoke exposure: No Alcohol intake: never Lack of Transportation: No Lack of Food: Never True Current Housing: I Have Housing Concerned About Future Housing: No Difficulty Paying Gas/Electric Bills: No Difficulty Paying for Meds: No Currently Unemployed: No Education: High School Diploma/GED Difficulty w/ Childcare or Family Care: No Exam Narrative: GENERAL: Well-appearing, well-nourished, and in no acute distress. HEAD: Normocephalic, atraumatic. CHEST: Clear to auscultation. No respiratory distress. HEART: Regular rate and rhythm. Normal peripheral pulses. EXTREMITIES: Normal range of motion. No edema. SKIN: Warm, dry, no rash. NEURO: Alert and oriented x3. PSYCH: Normal mood and affect. Course Course Emergency Course: No DVT. Muscle strain. Discharge home. Discussed stretching and anti-inflammatories which cannot take so Tylenol recommended. Vital Signs Vital signs: Vital Signs Temperature 97.9 F 10/12/23 10:44 Pulse Rate 70 10/12/23 10:44 Respiratory Rate 16 10/12/23 10:44 Blood Pressure 152/56 H 12
== END 2023-10-12 12:45 | disposition home or self-care (01) ==
PROVIDERS: Emergency Provider Emergency Medicine; PCP Family Medicine
DX: S86.911A Strain of unspecified muscle(s) and tendon(s) at lower leg level, right leg, initial encounter (principal); E11.22 Type 2 diabetes mellitus with diabetic chronic kidney disease; I12.9 Hypertensive chronic kidney disease with stage 1 through stage 4 chronic kidney disease, or unspecified chronic kidney disease; N18.9 Chronic kidney disease, unspecified; E03.9 Hypothyroidism, unspecified; E78.2 Mixed hyperlipidemia; M81.0 Age-related osteoporosis without current pathological fracture; Z94.0 Kidney transplant status; Z79.4 Long term (current) use of insulin; X58.XXXA Exposure to other specified factors, initial encounter
CPT/HCPCS: 93971; 99284

== ENCOUNTER 2023-12-15 07:12 | Outpatient (RCR) | payer MEDICARE, SELFPAY ==
[2023-09-18 07:53] LABS: Basophils Percent Auto 0.7 % (0.2-1.2); Eosinophils Absolute Auto 0.1 K/mm3 (0-0.3); Eosinophils Percent Auto 3.1 % (0-4.4); Hematocrit 45.8 % (37.0-47.0); Hemoglobin 14.5 g/dL (12.0-15.0); Immature Granulocyte Absolute 0.01 K/mm3 (0.00-0.031); Immature Granulocyte Percent A 0.2 % (0-0.5); Lymphocytes Absolute Auto 1.27 K/mm3 (0.9-3.2); Lymphocytes Percent Auto 28.3 % (18.3-44.2); Mean Corpuscular HGB Conc 31.7 g/dl (32-36); Mean Corpuscular Hemoglobin 29.3 pg (26-34); Mean Corpuscular Volume 92.5 fl (80-100); Mean Platelet Volume 10.6 fl (7.4-10.4); Monocytes Absolute Auto 0.4 K/mm3 (0.1-0.6); Monocytes Percent Auto 7.8 % (2.6-8.5); Neutrophils Absolute Auto 2.7 K/mm3 (1.3-6.7); Neutrophils Percent Auto 59.9 % (45.5-73.1); Platelet Count Result 178 k/mm3 (150-375); Red Blood Count 4.95 M/mm3 (4.2-5.4); Red Cell Distribution Width 13.3 % (11.5-14.5); White Blood Count 4.5 K/mm3 (4.5-10.0)
[2023-09-18 08:07] LABS: Albumin Level 4.2 g/dL (3.5-5.1); Anion Gap 7 mmol/L (8-16); Blood Urea Nitrogen 11 mg/dL (7-17); Calcium 9.9 mg/dL (8.4-10.2); Carbon Dioxide 27 mmol/L (22-30); Chloride 104 mmol/L (98-107); Estimated Glomerular Filt Rate > 60; Glucose 189 mg/dL (65-110); Phosphorus 3.7 mg/dL (2.5-4.5); Potassium 3.9 mmol/L (3.4-5.0); Sodium 138 mmol/L (137-145)
[2023-09-20 18:33] LABS: Tacrolimus Prograf 3.2 mcg/L
[2023-10-11 08:14] LABS: Basophils Percent Auto 0.7 % (0.2-1.2); Eosinophils Absolute Auto 0.2 K/mm3 (0-0.3); Eosinophils Percent Auto 3.9 % (0-4.4); Hematocrit 44.1 % (37.0-47.0); Immature Granulocyte Absolute 0.01 K/mm3 (0.00-0.031); Immature Granulocyte Percent A 0.2 % (0-0.5); Lymphocytes Percent Auto 26.6 % (18.3-44.2); Mean Corpuscular HGB Conc 31.7 g/dl (32-36); Mean Corpuscular Volume 94.4 fl (80-100); Mean Platelet Volume 10.8 fl (7.4-10.4); Monocytes Absolute Auto 0.4 K/mm3 (0.1-0.6); Monocytes Percent Auto 8.7 % (2.6-8.5); Neutrophils Absolute Auto 2.5 K/mm3 (1.3-6.7); Neutrophils Percent Auto 59.9 % (45.5-73.1); Platelet Count Result 176 k/mm3 (150-375); Red Blood Count 4.67 M/mm3 (4.2-5.4); Red Cell Distribution Width 13.5 % (11.5-14.5); White Blood Count 4.1 K/mm3 (4.5-10.0)
[2023-10-11 08:25] LABS: Anion Gap 4 mmol/L (8-16); Blood Urea Nitrogen 12 mg/dL (7-17); Calcium 9.7 mg/dL (8.4-10.2); Carbon Dioxide 27 mmol/L (22-30); Chloride 108 mmol/L (98-107); Estimated Glomerular Filt Rate > 60; Glucose 115 mg/dL (65-110); Phosphorus 3.7 mg/dL (2.5-4.5); Potassium 3.7 mmol/L (3.4-5.0); Sodium 139 mmol/L (137-145)
[2023-10-14 09:21] LABS: Tacrolimus Prograf 2.8 mcg/L
[2023-11-15 08:08] LABS: Basophils Absolute Auto 0.1 K/mm3 (0.0-0.1); Basophils Percent Auto 1.1 % (0.2-1.2); Eosinophils Absolute Auto 0.1 K/mm3 (0-0.3); Eosinophils Percent Auto 3.1 % (0-4.4); Hematocrit 42.9 % (37.0-47.0); Hemoglobin 13.5 g/dL (12.0-15.0); Immature Granulocyte Absolute 0.01 K/mm3 (0.00-0.031); Immature Granulocyte Percent A 0.2 % (0-0.5); Lymphocytes Absolute Auto 1.31 K/mm3 (0.9-3.2); Lymphocytes Percent Auto 28.9 % (18.3-44.2); Mean Corpuscular HGB Conc 31.5 g/dl (32-36); Mean Corpuscular Hemoglobin 29.5 pg (26-34); Mean Corpuscular Volume 93.7 fl (80-100); Mean Platelet Volume 10.4 fl (7.4-10.4); Monocytes Absolute Auto 0.4 K/mm3 (0.1-0.6); Monocytes Percent Auto 7.9 % (2.6-8.5); Neutrophils Absolute Auto 2.7 K/mm3 (1.3-6.7); Neutrophils Percent Auto 58.8 % (45.5-73.1); Platelet Count Result 178 k/mm3 (150-375); Red Blood Count 4.58 M/mm3 (4.2-5.4); Red Cell Distribution Width 13.2 % (11.5-14.5); White Blood Count 4.5 K/mm3 (4.5-10.0)
[2023-11-15 08:21] LABS: Alanine Aminotransferase 16 U/L (6-35); Albumin Level 3.9 g/dL (3.5-5.1); Alkaline Phosphatase 49 U/L (38-126); Anion Gap 8 mmol/L (8-16); Aspartate Amino Transferase 24 U/L (14-36); Bilirubin,Total 0.6 mg/dL (0.2-1.3); Blood Urea Nitrogen 13 mg/dL (7-17); Calcium 9.5 mg/dL (8.4-10.2); Carbon Dioxide 25 mmol/L (22-30); Chloride 106 mmol/L (98-107); Cholesterol 127 mg/dL (0-200); Estimated Glomerular Filt Rate > 60; Glucose 150 mg/dL (65-110); HDL Direct 76 mg/dL; Phosphorus 3.9 mg/dL (2.5-4.5); Potassium 3.8 mmol/L (3.4-5.0); Sodium 139 mmol/L (137-145)
[2023-11-15 08:29] LABS: LDL Cholesterol Direct 51 mg/dL
[2023-11-15 08:33] LABS: Hemoglobin A1C 8.3 % (<5.7)
[2023-11-15 08:37] LABS: Triglycerides 40 mg/dL (<150)
[2023-11-17 18:32] LABS: Tacrolimus Prograf 3.1 mcg/L
[2023-12-15 08:04] LABS: Basophils Percent Auto 0.5 % (0.2-1.2); Eosinophils Absolute Auto 0.2 K/mm3 (0-0.3); Eosinophils Percent Auto 2.7 % (0-4.4); Hematocrit 43.2 % (37.0-47.0); Hemoglobin 13.7 g/dL (12.0-15.0); Immature Granulocyte Absolute 0.02 K/mm3 (0.00-0.031); Immature Granulocyte Percent A 0.3 % (0-0.5); Lymphocytes Absolute Auto 1.14 K/mm3 (0.9-3.2); Lymphocytes Percent Auto 15.5 % (18.3-44.2); Mean Corpuscular HGB Conc 31.7 g/dl (32-36); Mean Corpuscular Hemoglobin 29.3 pg (26-34); Mean Corpuscular Volume 92.5 fl (80-100); Monocytes Absolute Auto 0.6 K/mm3 (0.1-0.6); Monocytes Percent Auto 7.9 % (2.6-8.5); Neutrophils Absolute Auto 5.4 K/mm3 (1.3-6.7); Neutrophils Percent Auto 73.1 % (45.5-73.1); Platelet Count Result 157 k/mm3 (150-375); Red Blood Count 4.67 M/mm3 (4.2-5.4); Red Cell Distribution Width 13.3 % (11.5-14.5); White Blood Count 7.4 K/mm3 (4.5-10.0)
[2023-12-15 08:16] LABS: Albumin Level 3.9 g/dL (3.5-5.1); Anion Gap 5 mmol/L (8-16); Blood Urea Nitrogen 13 mg/dL (7-17); Calcium 9.8 mg/dL (8.4-10.2); Carbon Dioxide 28 mmol/L (22-30); Chloride 104 mmol/L (98-107); Estimated Glomerular Filt Rate > 60; Glucose 145 mg/dL (65-110); Phosphorus 3.5 mg/dL (2.5-4.5); Potassium 3.8 mmol/L (3.4-5.0); Sodium 137 mmol/L (137-145)
[2023-12-17 18:33] LABS: Tacrolimus Prograf 3.2 mcg/L
== END 2023-12-17 23:59 | disposition home or self-care (01) ==
LOC: ANHLAB 07:12
PROVIDERS: PCP Family Medicine; Visit Provider Internal Medicine
DX: E78.2 Mixed hyperlipidemia (principal); E10.65 Type 1 diabetes mellitus with hyperglycemia; Z94.0 Kidney transplant status; Z79.899 Other long term (current) drug therapy
CPT/HCPCS: 36415; 80061; 80069; 80076; 80197; 83036; 85025

== ENCOUNTER 2024-01-12 07:10 | Outpatient (RCR) | payer MEDICARE, SELFPAY ==
[2024-01-12 08:21] LABS: Basophils Percent Auto 0.6 % (0.2-1.2); Eosinophils Absolute Auto 0.2 K/mm3 (0-0.3); Eosinophils Percent Auto 2.5 % (0-4.4); Hematocrit 46.1 % (37.0-47.0); Hemoglobin 14.8 g/dL (12.0-15.0); Immature Granulocyte Absolute 0.02 K/mm3 (0.00-0.031); Immature Granulocyte Percent A 0.3 % (0-0.5); Lymphocytes Absolute Auto 1.35 K/mm3 (0.9-3.2); Lymphocytes Percent Auto 20.7 % (18.3-44.2); Mean Corpuscular HGB Conc 32.1 g/dl (32-36); Mean Corpuscular Hemoglobin 29.4 pg (26-34); Mean Corpuscular Volume 91.7 fl (80-100); Mean Platelet Volume 10.9 fl (7.4-10.4); Monocytes Absolute Auto 0.4 K/mm3 (0.1-0.6); Monocytes Percent Auto 6.3 % (2.6-8.5); Neutrophils Absolute Auto 4.5 K/mm3 (1.3-6.7); Neutrophils Percent Auto 69.6 % (45.5-73.1); Platelet Count Result 179 k/mm3 (150-375); Red Blood Count 5.03 M/mm3 (4.2-5.4); Red Cell Distribution Width 13.3 % (11.5-14.5); White Blood Count 6.5 K/mm3 (4.5-10.0)
[2024-01-12 08:39] LABS: Alanine Aminotransferase 15 U/L (6-35); Albumin Level 4.2 g/dL (3.5-5.1); Alkaline Phosphatase 52 U/L (38-126); Anion Gap 6 mmol/L (8-16); Aspartate Amino Transferase 24 U/L (14-36); Bilirubin,Total 0.6 mg/dL (0.2-1.3); Blood Urea Nitrogen 16 mg/dL (7-17); Calcium 10.1 mg/dL (8.4-10.2); Carbon Dioxide 24 mmol/L (22-30); Chloride 109 mmol/L (98-107); Cholesterol 133 mg/dL (0-200); Estimated Glomerular Filt Rate > 60; Glucose 156 mg/dL (65-110); HDL Direct 79 mg/dL; Phosphorus 3.5 mg/dL (2.5-4.5); Sodium 139 mmol/L (137-145); Triglycerides 51 mg/dL (<150)
[2024-01-12 08:50] LABS: LDL Cholesterol Direct 54 mg/dL
[2024-01-12 16:48] LABS: Hemoglobin A1C 8.6 % (<5.7)
[2024-01-15 08:55] LABS: Tacrolimus Prograf 3.4 mcg/L
== END 2024-04-11 23:59 | disposition home or self-care (01) ==
LOC: ANHLAB 07:10
PROVIDERS: PCP Family Medicine; Visit Provider Internal Medicine
DX: E78.2 Mixed hyperlipidemia (principal); E10.65 Type 1 diabetes mellitus with hyperglycemia; Z94.0 Kidney transplant status; Z79.899 Other long term (current) drug therapy
CPT/HCPCS: 36415; 80061; 80069; 80076; 80197; 83036; 84439; 84443; 85025

== ENCOUNTER 2024-01-12 07:16 | Outpatient (CLI) | payer MEDICARE, SELFPAY ==
[2024-01-12 09:30] LABS: Free T4 Free Thyroxine 1.22 ng/mL (0.78-2.19)
== END 2024-01-12 07:17 | disposition home or self-care (01) ==
PROVIDERS: PCP Family Medicine
DX: E03.9 Hypothyroidism, unspecified (principal)
CPT/HCPCS: 36415; 84439; 84443

== ENCOUNTER 2024-04-16 07:11 | Outpatient (RCR) | payer MEDICARE, SELFPAY ==
[2024-04-16 07:46] LABS: Basophils Percent Auto 0.7 % (0.2-1.2); Eosinophils Absolute Auto 0.1 K/mm3 (0-0.3); Eosinophils Percent Auto 2.6 % (0-4.4); Hematocrit 43.7 % (37.0-47.0); Immature Granulocyte Absolute 0.01 K/mm3 (0.00-0.031); Immature Granulocyte Percent A 0.2 % (0-0.5); Lymphocytes Absolute Auto 1.17 K/mm3 (0.9-3.2); Lymphocytes Percent Auto 27.2 % (18.3-44.2); Mean Corpuscular Hemoglobin 29.5 pg (26-34); Mean Platelet Volume 10.3 fl (7.4-10.4); Monocytes Absolute Auto 0.3 K/mm3 (0.1-0.6); Monocytes Percent Auto 7.4 % (2.6-8.5); Neutrophils Absolute Auto 2.7 K/mm3 (1.3-6.7); Neutrophils Percent Auto 61.9 % (45.5-73.1); Platelet Count Result 166 k/mm3 (150-375); Red Blood Count 4.75 M/mm3 (4.2-5.4); Red Cell Distribution Width 13.8 % (11.5-14.5); White Blood Count 4.3 K/mm3 (4.5-10.0)
[2024-04-16 08:00] LABS: Alanine Aminotransferase 17 U/L (6-35); Albumin Level 4.1 g/dL (3.5-5.1); Alkaline Phosphatase 48 U/L (38-126); Anion Gap 6 mmol/L (4-12); Aspartate Amino Transferase 24 U/L (14-36); Bilirubin,Total 0.7 mg/dL (0.2-1.3); Blood Urea Nitrogen 13 mg/dL (7-17); Calcium 9.7 mg/dL (8.4-10.2); Carbon Dioxide 26 mmol/L (22-30); Chloride 108 mmol/L (98-107); Cholesterol 126 mg/dL (0-200); Estimated Glomerular Filt Rate > 60; Glucose 158 mg/dL (65-110); HDL Direct 74 mg/dL; Phosphorus 3.5 mg/dL (2.5-4.5); Sodium 140 mmol/L (137-145); Triglycerides 48 mg/dL (<150)
[2024-04-16 08:10] LABS: LDL Cholesterol Direct 56 mg/dL
[2024-04-16 08:59] LABS: Hemoglobin A1C 7.5 % (<5.7)
== END 2024-07-15 23:59 | disposition home or self-care (01) ==
LOC: ANHLAB 07:11
PROVIDERS: PCP Family Medicine; Visit Provider Internal Medicine
DX: E10.65 Type 1 diabetes mellitus with hyperglycemia (principal); E78.2 Mixed hyperlipidemia; Z94.0 Kidney transplant status; Z79.899 Other long term (current) drug therapy
CPT/HCPCS: 36415; 80061; 80069; 80076; 80197; 83036; 85025

== ENCOUNTER 2024-04-29 07:09 | Outpatient (CLI) | payer MEDICARE, SELFPAY ==
[2024-05-01 08:17] LABS: Tacrolimus Prograf 2.5 mcg/L
== END 2024-04-29 07:10 | disposition home or self-care (01) ==
PROVIDERS: PCP Family Medicine; Visit Provider Internal Medicine
DX: Z94.0 Kidney transplant status (principal)
CPT/HCPCS: 36415; 80197

== ENCOUNTER 2024-07-25 07:19 | Outpatient (RCR) | payer MEDICARE, SELFPAY ==
[2024-07-25 08:06] LABS: Basophils Percent Auto 0.9 % (0.2-1.2); Eosinophils Absolute Auto 0.2 K/mm3 (0-0.3); Eosinophils Percent Auto 3.2 % (0-4.4); Hematocrit 47.2 % (37.0-47.0); Immature Granulocyte Absolute 0.01 K/mm3 (0.00-0.031); Immature Granulocyte Percent A 0.2 % (0-0.5); Lymphocytes Absolute Auto 1.32 K/mm3 (0.9-3.2); Lymphocytes Percent Auto 28.3 % (18.3-44.2); Mean Corpuscular HGB Conc 31.8 g/dl (32-36); Mean Corpuscular Hemoglobin 29.7 pg (26-34); Mean Corpuscular Volume 93.5 fl (80-100); Mean Platelet Volume 10.6 fl (7.4-10.4); Monocytes Absolute Auto 0.4 K/mm3 (0.1-0.6); Monocytes Percent Auto 7.9 % (2.6-8.5); Neutrophils Absolute Auto 2.8 K/mm3 (1.3-6.7); Neutrophils Percent Auto 59.5 % (45.5-73.1); Platelet Count Result 169 k/mm3 (150-375); Red Blood Count 5.05 M/mm3 (4.2-5.4); Red Cell Distribution Width 13.4 % (11.5-14.5); White Blood Count 4.7 K/mm3 (4.5-10.0)
[2024-07-25 08:15] LABS: Alanine Aminotransferase 16 U/L (6-35); Albumin Level 4.4 g/dL (3.5-5.1); Alkaline Phosphatase 50 U/L (38-126); Anion Gap 8 mmol/L (4-12); Aspartate Amino Transferase 26 U/L (14-36); Bilirubin,Total 0.6 mg/dL (0.2-1.3); Blood Urea Nitrogen 13 mg/dL (7-17); Calcium 9.8 mg/dL (8.4-10.2); Carbon Dioxide 27 mmol/L (22-30); Chloride 103 mmol/L (98-107); Cholesterol 143 mg/dL (0-200); Estimated Glomerular Filt Rate > 60; Glucose 182 mg/dL (65-110); HDL Direct 85 mg/dL; Potassium 4.1 mmol/L (3.4-5.0); Sodium 138 mmol/L (137-145); Triglycerides 47 mg/dL (<150)
[2024-07-25 08:26] LABS: LDL Cholesterol Direct 42 mg/dL
[2024-07-25 08:34] LABS: Hemoglobin A1C 7.9 % (<5.7)
[2024-07-26 15:18] LABS: Tacrolimus Prograf 3.4 mcg/L
== END 2024-10-23 23:59 | disposition home or self-care (01) ==
LOC: ANHLAB 07:19
PROVIDERS: PCP Family Medicine; Visit Provider Internal Medicine
DX: E10.65 Type 1 diabetes mellitus with hyperglycemia (principal); Z94.0 Kidney transplant status; Z79.899 Other long term (current) drug therapy; E78.2 Mixed hyperlipidemia
CPT/HCPCS: 36415; 80061; 80069; 80076; 80197; 83036; 85025

== ENCOUNTER 2024-12-23 08:18 | Outpatient (CLI) | payer MEDICARE, SELFPAY | END 2024-12-23 08:19 | disposition home or self-care (01) | LOC: ANHIMG 08:20 | PROVIDERS: PCP Family Medicine; Visit Provider Family Medicine | DX: Z12.31 Encounter for screening mammogram for malignant neoplasm of breast (principal) | CPT/HCPCS: 77063; 77067 ==

== ENCOUNTER 2025-01-01 14:42 | Outpatient (CLI) | payer MEDICARE, SELFPAY ==
--- NOTE | ~2025-01-01 | XR_ITS ---
HISTORY: Left hip pain for 6 months COMPARISON: None TECHNIQUE: 2 views of the bilateral hips along with an AP view of the pelvis FINDINGS: No acute fracture or dislocation is identified. Superior lateral sclerosis of the bilateral femoral acetabular joint spaces are present consistent wi th osteoarthritis (left more than right). Joint space narrowing detected within the pubic symphysis with sclerosis, subchondral cyst formation and osteophyte formation. Degenerative disease within the visualized portion of the lower lumbar spine. Multiple calcifications within the right hemipelvis, likely secondary to prior fibroid disease. Normal mineralization. IMPRESSION: Severe degenerative disease without acute fracture or dislocation. Reviewed, dictated and finalized at location A.
== END 2025-01-01 14:43 | disposition home or self-care (01) ==
LOC: GOSHIMG 14:43
PROVIDERS: PCP Family Medicine; Visit Provider Family Medicine
DX: M25.552 Pain in left hip (principal); G89.29 Other chronic pain; M51.369 Other intervertebral disc degeneration, lumbar region without mention of lumbar back pain or lower extremity pain
CPT/HCPCS: 73521

== ENCOUNTER 2025-02-07 07:12 | Outpatient (RCR) | payer MEDICARE, SELFPAY ==
[2024-11-14 07:58] LABS: Basophils Percent Auto 0.4 % (0.2-1.2); Eosinophils Absolute Auto 0.1 K/mm3 (0-0.3); Eosinophils Percent Auto 2.6 % (0-4.4); Hematocrit 46.7 % (37.0-47.0); Hemoglobin 15.2 g/dL (12.0-15.0); Immature Granulocyte Absolute 0.01 K/mm3 (0.00-0.031); Immature Granulocyte Percent A 0.2 % (0-0.5); Lymphocytes Absolute Auto 1.34 K/mm3 (0.9-3.2); Mean Corpuscular HGB Conc 32.5 g/dl (32-36); Mean Corpuscular Hemoglobin 30.1 pg (26-34); Mean Corpuscular Volume 92.5 fl (80-100); Mean Platelet Volume 10.3 fl (7.4-10.4); Monocytes Absolute Auto 0.3 K/mm3 (0.1-0.6); Monocytes Percent Auto 7.1 % (2.6-8.5); Neutrophils Absolute Auto 2.8 K/mm3 (1.3-6.7); Neutrophils Percent Auto 60.7 % (45.5-73.1); Platelet Count Result 169 k/mm3 (150-375); Red Blood Count 5.05 M/mm3 (4.2-5.4); Red Cell Distribution Width 13.3 % (11.5-14.5); White Blood Count 4.6 K/mm3 (4.5-10.0)
[2024-11-14 08:07] LABS: Hemoglobin A1C 8.4 % (<5.7)
[2024-11-14 08:08] LABS: Alanine Aminotransferase 17 U/L (6-35); Albumin Level 4.3 g/dL (3.5-5.1); Alkaline Phosphatase 44 U/L (38-126); Anion Gap 7 mmol/L (4-12); Aspartate Amino Transferase 25 U/L (14-36); Bilirubin,Total 0.9 mg/dL (0.2-1.3); Blood Urea Nitrogen 12 mg/dL (7-17); Carbon Dioxide 27 mmol/L (22-30); Chloride 105 mmol/L (98-107); Cholesterol 128 mg/dL (0-200); Estimated Glomerular Filt Rate > 60; Glucose 113 mg/dL (65-110); HDL Direct 75 mg/dL; Phosphorus 3.7 mg/dL (2.5-4.5); Potassium 4.2 mmol/L (3.4-5.0); Sodium 139 mmol/L (137-145); Triglycerides 53 mg/dL (<150)
[2024-11-14 08:27] LABS: LDL Cholesterol Direct 47 mg/dL
[2025-02-07 08:38] LABS: Basophils Percent Auto 0.8 % (0.2-1.2); Eosinophils Absolute Auto 0.1 K/mm3 (0-0.3); Eosinophils Percent Auto 2.8 % (0-4.4); Hematocrit 46.1 % (37.0-47.0); Hemoglobin 14.5 g/dL (12.0-15.0); Immature Granulocyte Absolute 0.01 K/mm3 (0.00-0.031); Immature Granulocyte Percent A 0.3 % (0-0.5); Lymphocytes Absolute Auto 1.21 K/mm3 (0.9-3.2); Lymphocytes Percent Auto 30.7 % (18.3-44.2); Mean Corpuscular HGB Conc 31.5 g/dl (32-36); Mean Corpuscular Hemoglobin 29.5 pg (26-34); Mean Corpuscular Volume 93.9 fl (80-100); Mean Platelet Volume 10.9 fl (7.4-10.4); Monocytes Absolute Auto 0.3 K/mm3 (0.1-0.6); Monocytes Percent Auto 8.4 % (2.6-8.5); Neutrophils Absolute Auto 2.3 K/mm3 (1.3-6.7); Platelet Count Result 174 k/mm3 (150-375); Red Blood Count 4.91 M/mm3 (4.2-5.4); Red Cell Distribution Width 13.4 % (11.5-14.5); White Blood Count 3.9 K/mm3 (4.5-10.0)
[2025-02-07 08:53] LABS: Alanine Aminotransferase 17 U/L (6-35); Albumin Level 4.2 g/dL (3.5-5.1); Alkaline Phosphatase 40 U/L (38-126); Anion Gap 10 mmol/L (4-12); Aspartate Amino Transferase 27 U/L (14-36); Bilirubin,Total 0.8 mg/dL (0.2-1.3); Blood Urea Nitrogen 12 mg/dL (7-17); Calcium 9.8 mg/dL (8.4-10.2); Carbon Dioxide 23 mmol/L (22-30); Chloride 105 mmol/L (98-107); Cholesterol 129 mg/dL (0-200); Estimated Glomerular Filt Rate > 60; Glucose 174 mg/dL (65-110); HDL Direct 73 mg/dL; Phosphorus 3.4 mg/dL (2.5-4.5); Potassium 4.2 mmol/L (3.4-5.0); Sodium 138 mmol/L (137-145); Triglycerides 55 mg/dL (<150)
[2025-02-07 09:01] LABS: Hemoglobin A1C 8.1 % (<5.7)
[2025-02-07 09:08] LABS: LDL Cholesterol Direct 40 mg/dL
[2025-02-10 15:58] LABS: Tacrolimus Prograf 3.5 mcg/L
== END 2025-02-12 23:59 | disposition home or self-care (01) ==
LOC: ANHLAB 07:12
PROVIDERS: PCP Family Medicine; Visit Provider Internal Medicine
DX: E78.2 Mixed hyperlipidemia (principal); Z94.0 Kidney transplant status; Z79.899 Other long term (current) drug therapy; E10.65 Type 1 diabetes mellitus with hyperglycemia
CPT/HCPCS: 36415; 80061; 80069; 80076; 80197; 83036; 85025

== ENCOUNTER 2025-02-17 06:08 | Emergency (ER) | payer MEDICARE, SELFPAY ==
--- NOTE | ~2025-02-17 | XR_ITS ---
EXAMINATION: XR ribs RT 2V w CXR 2V DATE: 02/17/2025 06:39 INDICATION: Lower right rib pain TECHNIQUE: PA and lateral views of the chest and 3 views of the right ribs were obtained. COMPARISON: Chest radiograph dated 12/29/2008 FINDINGS: No rib fractures identified. Linear discoid atelectasis/scarring in the right middle lobe and at the left costophrenic angle. No other airspace opacities, pulmonary edema, pleural effusion or pneumothor ax. Heart size is normal. Prominent right rotator cuff calcific tendinitis. IMPRESSION: 1. No rib fractures identified. 2. Mild discoid atelectasis at the bilateral lower lungs. Reviewed, dictated and finalized at location B.
--- OUTSIDE RECORDS SUMMARY | 2025-02-17 06:11 | XMS_ITS | Clinical Summary ---
Author Organization [facility] Address [address] [place] [address] Care Team Providers Care Hydrometer Finisher Name Role Phone Rayna Villanueva RN Unavailable [phone] Cindy Thomas RN Unavailable Unava Dorothy Tipton DO Primary Care Provider + Allergies Active Allergy Reactions Criticality Noted Date Comments Penicillins Unknown 07/18/2008 Medications levothyroxine (SYNTHROID) 50 mcg tablet Take 1 tablet (50 mcg total) by mouth first press operator before breakfast Active amLODIPine (NORVASC) 10 mg tablet Take 1 tablet (10 mg total) by mouth daily Active losartan (COZAAR) 100 mg tablet Take 1 tablet (100 mg total) by mouth daily Active simvastatin (ZOCOR) 20 mg tablet Take 1 tablet (20 mg total) by mouth nightly Active cholecalciferol (VITAMIN D-3) 1,000 unit tablet Take 1 tablet (1,000 Units total) by mouth daily Active calcitonin (MIACALCIN) 200 unit/actuation nasal sprayIndication s:Post-Menopaus al Osteoporosis Administer 1 spray into one nostril daily Active vitamins A,C,E-zinc-marco a er [id number] fldn-br-lnyt tablet,delayed release (DR/EC) Take by mouth Active OneTouch Ultra Test stripIndication s:Type 2 diabetes mellitus without complication, with long-term current use of insulin (HCC) USE TO TEST BLOOD SUGAR FOUR TIMES DAILY DIRECTED 400 strip 022 Active pen needle, diabetic 31 gauge x 5/16 needleIndicatio ns:Type 2 diabetes mellitus without complication, with long-term current use of insulin (HCC) USE 1 PEN NEEDLE 4 TIMES DAILY FOR INSULIN 400 each 3 023 Active tacrolimus 1 mg immediate-relea se capsuleIndicati ons:Kidney replaced by transplant TAKE ONE CAPSULE BY MOUTH DAILY 90 capsule 3 024 Active predniSONE (DELTASONE) 2.5 mg tabletIndicatio ns:Kidney replaced by transplant TAKE ONE TABLET BY MOUTH DAILY 90 tablet 3 024 Active multivitamin tabletIndicatio ns:Vitamin Deficiency Prevention Take 1 tablet by mouth Active NovoLOG 100 unit/mL (3 mL) pen for injection INJECT UP TO 15 UNITS SUBCUTANEOUSLY THREE TIMES DAILY WITH MEALS. 15 mL 3 024 Active tacrolimus 0.5 mg immediate-relea se capsuleIndicati ons:Kidney replaced by transplant TAKE 1 CAPSULE BY MOUTH EVERY DAY WITH 1MG FOR A TOTAL OF 1.5MG 90 capsule [address] (MYFORTIC) 360 mg EC tabletIndicatio ns:Kidney replaced by transplant Take 1 tablet (360 mg total) by mouth 2 (two) times a day 180 tablet 3 025 Active insulin glargine (TOUJEO) 300 unit/mL (1.5 mL) pen for injection INJECT 25 UNITS SUBCUTANEOUSLY ONCE DAILY 6 mL 1 025 Active Additional Information Patient taking differently: 28 Units subcutaneous Daily, Reported on 02/10/2025 aspirin 81 mg chewable tablet Take 1 tablet (81 mg total) by mouth every other day 2024 Discontinued(T herapy completed) TOUJEO 300 unit/mL (1.5 mL) pen for injection INJECT 25 UNITS SUBCUTANEOUSLY ONCE DAILY 6 mL 025 2024 Discontinued Active Problems Patient Care Coordination No te Formatting of this note migh t be different from the original. [facility] [phone] opt 3, [phone] Standing Order q3-FK, HgbA1C Exp. 02/13/26 Problem Noted Date Diagnosed Date Gastroesophageal reflux disease without esophagi tis 03/30/2021 Overview (03/30/2021): Start PPI Type 2 diabetes mellitus wit hout complication, with long-term current use of insulin 09/29/2020 Primary hypothyroidism 09/29/2020 Kidney replaced by transplant 02/06/2019 Encounter for long-term (cur rent) use of high-risk medication 02/06/2019 Dyslipidemia 02/06/2019 Essential hypertension 02/06/2019 Encounters Date Type Department Care Team Description 02/13/2025 Orders Only [facility] Transplant Kidney [address] [facility] [address] [id number] [place] [address] Allison Bartholomew Kidney transplanted (Primary Dx); Encounter for long-term (current) use of high-risk medication; Hyperlipidemia, unspecified hyperlipidemia type; Type 1 diabetes mellitus with hyperglycemia (HCC) 02/11/2025 Lab [facility] Transplant Kidney [address] [place] [address] [address] [id number] [place] [address] oJe Buckley MD 02/10/2025 9:30 AM CDT Office Visit [facility] [address] [place] [address] [address] [place] [address] Jared Manjarrez MD Type 2 diabetes mellitus without complication, with long-term current use of insulin (HCC) (Primary Dx); Primary hypothyroidism; Essential hypertension; Dyslipidemia 02/10/2025 Lab [facility] Transplant Kidney [address] [place] [address] [address] [id number] [place] [address] Joe Buckley MD 01/07/2025 Telephone [facility] Transplant Kidney [address] [place] [address] [address] [id number] [place] [address] Rashad Delgado from Last 3 Months Immunizations Immunization Administration Dates Next Due Influenza, Quadrivalent, Hig h Dose, Preservative Free, Intrr 08/05/2021 Influenza, Quadrivalent, Rec ombinant, Egg Free, Preservative Free, Intramuscular 07/22/2020,08/12/2019 Influenza, Trivalent, High D ose, Split, Preservative Free, Intramuscular 07/23/2018 Pfizer SARS-CoV-2 Monovalent Vaccination (12+ Yrs) PURPLE 02/03/2022 Pfizer Sars-Cov-2 Bivalent Vaccination (12+ YRS) 08/08/2022 Pneumococcal Conjugate PCV 13 01/22/2014 Family History Medical History Relation Name Comments Diabetes Brother 1 Family history of diabetes mellitus - (Added by TW Conv) Hypertension Brother 1 Family history of hypertension - (Added by TW Conv) Kidney disease Brother 1 Family histor y of chronic kidney disease - (Added by TW Conv) Kidney disease Brother 2 Family histor y of chronic kidney disease - (Added by TW Conv) Diabetes Daughter 1 Family history of diabetes mellitus - (Added by TW Conv) Hypertension Daughter 1 Family history of hypertension - (Added by TW Conv) Kidney disease Daughter 1 Family histor y of chronic kidney disease - (Added by TW Conv) Kidney disease Daughter 2 Family histor y of chronic kidney disease - (Added by TW Conv) Diabetes Mother Family history of diabetes mellitus - (Added by TW Conv) Hypertension Mother Family history of hypertension - (Added by TW Conv) Kidney disease Mother Family histor y of chronic kidney disease - (Added by TW Conv) Hypertension Sister 1 Family history of hypertension - (Added by TW Conv) Kidney disease Sister 1 Family histor y of chronic kidney disease - (Added by TW Conv) Kidney disease Sister 2 Family histor y of chronic kidney disease - (Added by TW Conv) Relation Name Status Comments Brother 1 Brother 2 Daughter 1 Daughter 2 Mother Sister 1 Sister 2 Social History Tobacco Use Types Packs/Day Years Used Date Smoking Tobacco: Never Tobacco Cessation:Counseling Given: Not Answered Comments Unknown Sex and Gender Information Value Date Recorded Sex Assigned at Not on file Legal Sex 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 Gender Identity Not on file Sexual Orientation Not on file Obstetrics History Last Filed Vital Signs Vital Sign Reading Time Taken Comments Blood Pressure 146/68 02/10/2025 9:10 AM CDT Pulse 71 02/10/2025 9:10 AM CDT Temperature 36.8 C (98.2 F) 07/05/2024 1:14 PM CDT Respiratory Rate - - Oxygen Saturation 96% 02/10/2025 9:10 AM CDT Inhaled Oxygen Concentration - - Weight 64.4 kg (142 lb) 02/10/2025 9:10 AM CDT Height 165.1 cm (5' 5 ) 02/10/2025 9:10 AM CDT Body Mass Index 23.63 02/10/2025 9:10 AM CDT Plan of Treatment Health Maintenance Due Date Last Done Comments Albumin Creatinine Ratio, Urine 1945 Depression Screening 1945 Fall Risk Assessment 1945 Foot Exam 1945 Hepatitis C Screening 1945 Osteoporosis Screening-Bone Density Scan 1945 Dilated Eye Exam 1955 DTaP/Tdap/Td Vaccine (1 - Tdap) 1956 Hepatitis B Screening 1963 Zoster Vaccine (1 of 2) 1964 Well Visit 65+ 2010 Pneumococcal vaccine 65+ (2 of 2 - PPSV23) 03/19/2014 01/22/2014 Covid-19 Vaccine (10 - Pfize r risk season) 2024 07/03/2024, 11/01/2023, 04/08/2023, Additional history exists TSH Level 01/11/2025 01/12/2024, 03/24, 10/20/2020, Additional history exists Influenza Vaccine (Season Ended) 2025 10/17/2023, 08/10/2022, 08/05/2021, Additional history exists Hemoglobin A1C 08/12/2025 02/10/2025, 01/21, 11/14/2024, Additional history exists Lipid Panel 02/07/2026 02/07/2025, 01/21, 11/14/2024, Additional history exists eGFR 02/07/2026 02/07/2025, 01/21, 11/14/2024, Additional history exists Breast Cancer Screening-Mammogram Discontinued 09/07/2021, 07/16/2020, 03/25/2019, Additional history exists Procedures Procedure Name Priority Date/Time Associated Diagnosis Comments POCT HEMOGLOBIN A1C Routine 02/10/2025 9 :20 AM CDT Type 2 diabetes mellitus without complication, with long-term current use of insulin (HCC) CBC WITH AUTO DIFFERENTIAL Routine 02/07/2025 HEPATIC FUNCTION PANEL Routine 02/07/2025 LIPID PANEL Routine 02/07/2025 RENAL FUNCTION PANEL Routine 02/07/2025 TACROLIMUS LEVEL, TROUGH Routine 02/07/2025 HEMOGLOBIN A1C Routine 02/07/2025 RENAL FUNCTION PANEL Routine 02/07/2025 LIPID PANEL Routine 02/07/2025 HEPATIC FUNCTION PANEL Routine 02/07/2025 TSH Routine 01/12/2024 SCREENING MAMMOGRAM BILATERAL W DREW Schedule Routine, Read Routine (OP Routine) 09/07/2021 9:57 AM INDUSTRIAL ENGINEERING TECHNOLOGIST Encounter for screening mammogram for malignant neoplasm of breast from Last 3 Months or Most Recently Relevant to Health Maintenance Results * (ABNORMAL) POCT hemoglobin A1c (02/10/2025 9:20 AM CDT) Hemoglobin A1C, POC 8.8 4.0 - 5.6 % Blood 02/10/2025 9:20 AM CDT Jared Manjarrez MD POINT OF CARE TEST ORDER ISAURO Final Result * (ABNORMAL) Tacrolimus level trough (02/07/2025) SCRIBED Tacrolimus, trough 3.5(A) 5 - 20 TXP NO LAB FOUND Blood 02/07/2025 Historical Provider LAB BLOOD ORDERABLES Trinidad harvey Result TXP NO LAB FOUND * (ABNORMAL) CBC with auto differential (02/07/2025) SCRIBED WBC 3.9(A) 4.5 - 10.0 k/cumm TXP NO LAB FOUND SCRIBED Hemoglobin 14.5 12.0 - 15.0 g/dL TXP NO LAB FOUND SCRIBED Hematocrit 46.1 37 - 47 % TXP NO LAB FOUND SCRIBED Platelets 174 150 - 375 k/cumm TXP NO LAB FOUND SCRIBED Lymphocytes Abs 1.21 0.9 - 3.2 k/cumm TXP NO LAB FOUND Blood 02/07/2025 Result [facility] Provider LAB BLOOD ORDERABLES Edit ed Result - Final Performing Organization Address [facility] Co de Phone Number TXP NO LAB FOUND * Hemoglobin A1c (02/07/2025) SCRIBED Hemoglobin A1c 8.1 <5.7 % TXP NO LAB FOUND Blood 02/07/2025 Result [facility] Provider LAB BLOOD ORDERABLES Trinidad l Result Performing Organization Address [facility] de Phone Number TXP NO LAB FOUND * Hepatic function panel (02/07/2025) SCRIBED Protein, Total, Serum 7.0 6.3 - 8.2 g/dL TXP NO LAB FOUND SCRIBED Albumin 4.2 3.5 - 5.1 g/dl TXP NO LAB FOUND SCRIBED Bilirubin, Total 0.8 0.2 - 1.3 mg/dL TXP NO LAB FOUND SCRIBED Bilirubin, Direct 0.0 0.0 - 0.3 mg/dL TXP NO LAB FOUND SCRIBED Alkaline Phosphatase 40 38 - 126 Units/L TXP NO LAB FOUND SCRIBED Aspartate Transaminase (AST) 27 14 - 36 Units/L TXP NO LAB FOUND SCRIBED Alanine Transaminase (ALT) 17 6 - 35 Units/L TXP NO LAB FOUND Blood 02/07/2025 Result [facility] Provider LAB BLOOD ORDERABLES Trinidad l Result Performing Organization Address [facility] Co de Phone Number TXP NO LAB FOUND * Hepatic function panel (02/07/2025) SCRIBED Protein, Total, Serum 7.0 6.3 - 8.2 g/dL TXP NO LAB FOUND SCRIBED Albumin 4.2 3.5 - 5.1 g/dl TXP NO LAB FOUND SCRIBED Bilirubin, Total 0.8 0.2 - 1.3 mg/dL TXP NO LAB FOUND SCRIBED Bilirubin, Direct 0.0 0.0 - 0.3 mg/dL TXP NO LAB FOUND SCRIBED Alkaline Phosphatase 40 38 - 126 Units/L TXP NO LAB FOUND SCRIBED Aspartate Transaminase (AST) 27 14 - 36 Units/L TXP NO LAB FOUND SCRIBED Alanine Transaminase (ALT) 17 6 - 35 Units/L TXP NO LAB FOUND Blood 02/07/2025 [facility] Provider LAB BLOOD ORDERABLES Trinidad l Result TXP NO LAB FOUND * (ABNORMAL) Renal function panel (02/07/2025) Pathologist [facility] SCRIBED Calcium 9.8 8.4 - 10.2 mg/dl TXP NO LAB FOUND SCRIBED Phosphorus 3.4 2.5 - 4.5 mg/dl TXP NO LAB FOUND SCRIBED Albumin 4.2 3.5 - 5.1 g/dl TXP NO LAB FOUND SCRIBED Glucose 174(A) 65 - 110 mg/dl TXP NO LAB FOUND SCRIBED Creatinine 0.49(A) 0.7 - 1.0 mg/dl TXP NO LAB FOUND SCRIBED Sodium 138 137 - 145 mmol/L TXP NO LAB FOUND SCRIBED Potassium 4.2 3.4 - 5.0 mmol/L TXP NO LAB FOUND SCRIBED Chloride 105 98 - 107 mmol/L TXP NO LAB FOUND SCRIBED Carbon Dioxide 23 22 - 30 mmol/L TXP NO LAB FOUND SCRIBED eGFR in NonAfrican [place] >60 >=60 TXP NO LAB FOUND SCRIBED Urea Nitrogen (BUN) 12 7 - 17 mg/dl TXP NO LAB FOUND Blood 02/07/2025 Historical Provider LAB BLOOD ORDERABLES Trinidad l Result Performing Organization Address [facility]/ZIP Co de Phone Number TXP NO LAB FOUND * (ABNORMAL) Renal function panel (02/07/2025) SCRIBED Calcium 9.8 8.4 - 10.2 mg/dl TXP NO LAB FOUND SCRIBED Phosphorus 3.4 2.5 - 4.5 mg/dl TXP NO LAB FOUND SCRIBED Albumin 4.2 3.5 - 5.1 g/dl TXP NO LAB FOUND SCRIBED Glucose 174(A) 65 - 110 mg/dl TXP NO LAB FOUND SCRIBED Creatinine 0.49(A) 0.7 - 1.0 mg/dl TXP NO LAB FOUND SCRIBED Sodium 138 137 - 145 mmol/L TXP NO LAB FOUND SCRIBED Potassium 4.2 3.4 - 5.0 mmol/L TXP NO LAB FOUND SCRIBED Chloride 105 98 - 107 mmol/L TXP NO LAB FOUND SCRIBED Carbon Dioxide 23 22 - 30 mmol/L TXP NO LAB FOUND SCRIBED eGFR in NonAfrican [place] >60 >=60 TXP NO LAB FOUND SCRIBED Urea Nitrogen (BUN) 12 7 - 17 mg/dl TXP NO LAB FOUND Blood 02/07/2025 Result [facility] Historical Provider LAB BLOOD ORDERABLES Edit ed Result - Final Performing Organization Address [facility] Co de Phone Number TXP NO LAB FOUND * Lipid panel (02/07/2025) SCRIBED Cholesterol, Total 129 0 - 200 TXP NO LA B FOUND SCRIBED HDL 73 >35 TXP NO L AB FOUND SCRIBED LDL 40 <130 TXP NO L AB FOUND SCRIBED Triglycerides 55 <150 TXP NO LAB FOUND Blood 02/07/2025 Historical Provider LAB BLOOD ORDERABLES Trinidad l Result Performing Organization Address [facility]/ZIP Co de Phone Number TXP NO LAB FOUND * Lipid panel (02/07/2025) SCRIBED Cholesterol, Total 129 0 - 200 TXP NO LA B FOUND SCRIBED HDL 73 >35 TXP NO L AB FOUND SCRIBED LDL 40 <130 TXP NO L AB FOUND SCRIBED Triglycerides 55 <150 TXP NO LAB FOUND Blood 02/07/2025 Historical Provider MD LAB BLOOD ORDERABLES Trinidad l Result Performing Organization Address City/State/[facility] Co de Phone Number TXP NO LAB FOUND * TSH (01/12/2024) Scribed TSH 3.14 0.47 - 4.68 mcU/mL TXP NO LAB FOUND Blood 01/12/2024 Historical Provider LAB BLOOD ORDERABLES Trinidad l Result Performing Organization Address [facility] Co de Phone Number TXP NO LAB FOUND * Screening Mammogram Bilateral W Drew (09/07/2021 9:57 AM INDUSTRIAL ENGINEERING TECHNOLOGIST) Anatomical Region Laterality Modality Breast Bilateral Mammography Narrative 09/09/2021 8:50 AM INDUSTRIAL ENGINEERING TECHNOLOGIST Mammogram Technique: Bilateral Digital Breast Tomosynthesis, Bilateral C-view 2D Screening mammogram. Views obtained: bilateral craniocaudal and bilateral mediolateral oblique. Computer Aided Detection was performed. Mammogram Findings: The present examination has been compared to prior imaging studies performed at [facility] on 03/20/2018, 03/25/2019 and 07/16/2020. There are scattered areas of fibroglandular density. There is no suspicious abnormality in either breast. Impression: There is no mammographic evidence of malignancy. Annual screening mammography is recommended. OVERALL FINAL ASSESSMENT: BI-RADS CATEGORY 1: Negative. Procedure Note Zoila Sharma MD - 09/09/2021 Mammogram Technique: Bilateral Digital Breast Tomosynthesis, Bilateral C-view 2D Screening mammogram. Views obtained: bilateral craniocaudal and bilateral mediolateral oblique. Computer Aided Detection was performed. Mammogram Findings: The present examination has been compared to prior imaging studies performed at [facility] on 03/20/2018, 03/25/2019 and 07/16/2020. There are scattered areas of fibroglandular density. There is no suspicious abnormality in either breast. Impression: There is no mammographic evidence of malignancy. Annual screening mammography is recommended. OVERALL FINAL ASSESSMENT: BI-RADS CATEGORY 1: Negative. us Self Screening Mammogram IMG MAMMO PROCEDURES Fi nal Result from Last 3 Months or Most Recently Relevant to Health Maintenance Insurance MEDICARE [facility] MEDICARE COMMERCIAL GENERIC ANTHEM ACCESS ANTHEM MEDICARE HMO PPO Member Subscriber Plan / Payer (Ef fective 2020-Present) Name:Lisy Pandey Relation to Subscriber:Self Name:Lsiy Pandey Payer ID:[id number] (NAIC) Group ID:[id number] Type:MEDICARE RISK OTHER Address: [address] MEDICARE [employer] MEDICARE SUPPLEMENT Care Teams Hydrometer Finisher Relationship Specialty Start Date End Date Dorothy Cloud DO PCP - General Family Medicine 01/03/23 Rayna Villanueva, RN [address] [address] Secondary Kidney Coordinator Transplant 11/19/20 Cindy Thomas, imagerBraided Band Assembler Transplant 02/16/22
--- OUTSIDE RECORDS SUMMARY | 2025-02-17 06:12 | XMS_ITS | Referral Summary ---
Author Organization [facility] Address 1 [place] [address] Care Team Providers Care Quality Assurance Project Manager Name Role Phone Rayna Villanueva RN Unavailable Cindy Thomas RN Unavailable Unava ilable Dorothy Cloud DO Primary Care Provider + Encounters Date Type Department Care Team Description 02/13/2025 Orders Only [facility] Transplant Kidney [address] [facility] [address] [facility] [address] [place] [address] Allison Bartholomew Kidney transplanted (Primary Dx); Encounter for long-term (current) use of high-risk medication; Hyperlipidemia, unspecified hyperlipidemia type; Type 1 diabetes mellitus with hyperglycemia (HCC) 02/11/2025 Lab [facility] Transplant Kidney [address] [facility] [address] [phone] [place] [address] Joe Buckley MD 02/10/2025 Lab [facility] Transplant Kidney [address] [facility] [address] [phone] [place] [address] Joe Buckley MD 02/10/2025 9:30 AM CDT Office Visit [facility] [address] [place] [address] [address] [facility] [place] [id number] Jared Manjarrez MD Type 2 diabetes mellitus without complication, with long-term current use of insulin (HCC) (Primary Dx); Primary hypothyroidism; Essential hypertension; Dyslipidemia 01/07/2025 Telephone [facility] Transplant Kidney [address] [facility] [address] [phone] [place] [address] Rashad Delgado from Last 3 Months Allergies Active Allergy Reactions Criticality Noted Date Comments Penicillins Unknown 07/18/2008 Medications levothyroxine (SYNTHROID) 50 mcg tablet Take 1 tablet (50 mcg total) by mouth magnet valve assembler before breakfast Active amLODIPine (NORVASC) 10 mg [...] daily Active vitamins A,C,E-zinc-marco a er 7,160-113-100 dpem-df-umqu tablet,delayed release (DR/EC) Take by mouth Active OneTouch Ultra Test stripIndication s:Type 2 diabetes mellitus without complication, with long-term current use of insulin ([facility]) USE TO TEST BLOOD SUGAR FOUR TIMES DAILY DIRECTED 400 strip 022 Active pen needle, diabetic 31 gauge x 5/16 needleIndicatio ns:Type 2 diabetes mellitus without complication, with long-term current use of insulin ([facility]) USE 1 PEN NEEDLE 4 TIMES DAILY [...] migh t be different from the original. [facility] [phone] opt 3, [phone] Standing Order q3-FK, HgbA1C Exp. 02/13/26 Problem Noted Date Diagnosed Date Gastroesophageal reflux disease without esophagi tis 03/30/2021 Overview (03/30/2021): Start PPI Type 2 diabetes mellitus wit hout complication, with long-term current use of insulin 09/29/2020 Primary hypothyroidism 09/29/2020 Kidney replaced by transplant 02/06/2019 Encounter for long-term (cur rent) use of high-risk medication 02/06/2019 Dyslipidemia 02/06/2019 Essential hypertension 02/06/2019 Immunizations Immunization Administration Dates Next Due Influenza, Quadrivalent, Hig h Dose, Preservative Free, Intrr 08/05/2021 Influenza, Quadrivalent, Rec ombinant, Egg Free, Preservative Free, Intramuscular 07/22/2020,08/12/2019 Influenza, Trivalent, High D ose, Split, Preservative Free, Intramuscular 07/23/2018 Pfizer SARS-CoV-2 Monovalent Vaccination (12+ Yrs) PURPLE 02/03/2022 Pfizer Sars-Cov-2 Bivalent Vaccination (12+ YRS) 08/08/2022 Pneumococcal Conjugate PCV 13 01/22/2014 Social History Tobacco Use Types Packs/Day Years Used Date Smoking Tobacco: Never Tobacco Cessation:Counseling Given: Not Answered Comments Unknown Sex and Gender Information Value Date Recorded Sex Assigned at Not on file Legal Sex Female 2:14 AM ARM MAKER Gender Identity Not on file Sexual Orientation Not on file Last Filed Vital Signs Vital Sign Reading [...] 02/10/2025 9:10 AM CDT Plan of Treatment Not on file Procedures Procedure Name Priority Date/Time Associated Diagnosis [...] Read Routine (OP Routine) 09/07/2021 9:57 AM ARM MAKER Encounter for screening mammogram for malignant neoplasm [...] ORDERABLES Trinidad l Result Performing Organization Address [facility]/ZIP Co de Phone Number TXP NO LAB FOUND * (ABNORMAL) CBC [...] k/cumm TXP NO LAB FOUND Blood 02/07/2025 Historical Provider LAB BLOOD ORDERABLES Edit ed Result - Final TXP NO LAB FOUND * Hemoglobin A1c (02/07/2025) SCRIBED Hemoglobin A1c 8.1 <5.7 % TXP NO LAB FOUND Blood 02/07/2025 Result [facility] Provider LAB BLOOD ORDERABLES Trinidad l Result Performing Organization Address [facility] Co de Phone Number TXP NO LAB [...] TXP NO LAB FOUND Blood 02/07/2025 Result [facility] Provider LAB BLOOD ORDERABLES Trinidad l Result Performing Organization Address [facility] de Phone Number TXP NO LAB FOUND [...] Units/L TXP NO LAB FOUND Blood 02/07/2025 [facility] Provider LAB BLOOD ORDERABLES Trinidad l Result Performing Organization Address [facility]/ZIP Co de Phone Number TXP NO LAB [...] NO LAB FOUND SCRIBED eGFR in NonAfrican [place]uneian >60 >=60 TXP NO LAB FOUND SCRIBED [...] NO LAB FOUND SCRIBED eGFR in NonAfrican Bruneian >60 >=60 TXP NO LAB FOUND SCRIBED Urea Nitrogen (BUN) 12 7 - 17 mg/dl TXP NO LAB FOUND Blood 02/07/2025 Historical Provider LAB BLOOD ORDERABLES Edit ed Result - Final Performing Organization Address [facility]/ZIP Co de Phone Number TXP NO LAB FOUND * Lipid panel (02/07/2025) SCRIBED Cholesterol, Total 129 0 - 200 TXP NO LA B FOUND SCRIBED HDL 73 >35 TXP NO L AB FOUND SCRIBED LDL 40 <130 TXP NO L AB FOUND SCRIBED Triglycerides 55 <150 TXP NO LAB FOUND Blood 02/07/2025 Historical Provider LAB BLOOD ORDERABLES Trinidad l Result Performing Organization Address [facility]/ZIP Co de Phone Number TXP NO LAB [...] l Result TXP NO LAB FOUND * TSH (01/12/2024) Scribed TSH 3.14 0.47 - 4.68 mcU/mL TXP NO LAB FOUND Blood 01/12/2024 Historical Provider LAB BLOOD ORDERABLES Trinidad wes Result TXP NO LAB FOUND * Screening Mammogram Bilateral W Drew (09/07/2021 9:57 AM ARM MAKER) Anatomical Region Laterality Modality Breast Bilateral Mammography Narrative 09/09/2021 8:50 AM ARM MAKER Mammogram Technique: Bilateral Digital Breast Tomosynthesis, Bilateral C-view 2D Screening mammogram. Views obtained: bilateral craniocaudal and bilateral mediolateral oblique. Computer Aided Detection was performed. Mammogram Findings: The present examination has been compared to prior imaging studies performed at [facility] on 03/20/2018, 03/25/2019 and 07/16/2020. There are [...] compared to prior imaging studies performed at [facility] on 03/20/2018, 03/25/2019 and 07/16/2020. There are scattered areas of fibroglandular density. There is no suspicious abnormality in either breast. Impression: There is no mammographic evidence of malignancy. Annual screening mammography is recommended. OVERALL FINAL ASSESSMENT: BI-RADS CATEGORY 1: Negative. us Self Screening Mammogram IMG MAMMO PROCEDURES Fi nal Result from Last 3 Months or Most Recently Relevant to Health Maintenance Insurance MEDICARE [facility] MEDICARE COMMERCIAL GENERIC ANTH ACCESS ANTHEM MEDICARE HMO PPO Member Subscriber Plan / Payer (Ef fective 2020-Present) Name:Lisy Pandey Relation to Subscriber:Self Name:Lisy Pandey Payer ID:[id number] (NAIC) Group ID:[id number] Type:MEDICARE RISK OTHER Address: [address] MEDICARE [facility] MEDICARE SUPPLEMENT Care Teams Quality Assurance Project Manager Relationship Specialty Start Date End Date Dorothy Cloud DO PCP - General Family Medicine 01/03/23 Rayna Villanueva, RN [address] [address] Secondary Kidney Coordinator Transplant 11/19/20 Cindy Thomas, document managerInsurance Specialist Transplant 02/16/22
--- OUTSIDE RECORDS SUMMARY | 2025-02-17 06:12 | XMS_ITS ---
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 Donor Information Organ ABO Source Meets Risk Criteria HLA Match Mismatches Cross Match Left Kidney Transplanted O DBD No A: B: DR: T cell (Negative) T cell (Negative) B cell (Negative) B cell (Negative) Left Kidney Donor Serology Results Anti-CMV CMV IgG: Negative EBV IgG EBV VCA IgG: Positive Anti-HBcAb HBC Total: Negative HBsAg HBsAg: Negative HBV DNA No results on file Anti-HCV HCV: Negative Anti-HIV I/II No results on file Anti-HTLV I/II HTLV: Negative RPR/VDRL RPR: Negative EBV IgM EBV VCA IgM: Negative HBsAb No results on file EBNA No results on file SARS CoV-2 No results on file Care Team Name Role Phone Fax Email Cindy Thomas RN Kidney Coordinator N/A N /A N/A Rayna Villanueva RN Secondary Coordinator Secondary Kidney Coordinator [phone] N/A N/A Cindy Jared William, formal service waiterKnitting Supervisor N/A N/A N/A Allison Bartholomew Primary Data Center Project Manager N/A N/A N/A Events Post-Transplant Pre-Transplant Admitted: 01/07/2007 Referred: 11/19/2004 Transplanted: 01/07/2007 Evaluation began: 5 Discharged: 01/11/2007 Center waitlisted: 6 Dialysis History Dialysis History Start End Type Comments Center 04/07/2006 01/07/2007 Trina Dominguez,W,F 2:30 pm [facility] Dialysis Center Information Center Phone Fax Address [facility] [phone] [address] [address]
[2025-02-17 06:27] VITALS: BP 162/66; PULSE 68; RESP 15; TEMP 36.8; O2SAT 100
[2025-02-17 06:46] VITALS: BP 151/63; PULSE 68; RESP 17; O2SAT 100
[2025-02-17 06:47] VITALS: RESP 14; O2SAT 100
--- OUTSIDE RECORDS SUMMARY | 2025-02-17 07:29 | XMS_ITS ---
Author Organization [facility] al Address [address] [place] [address] Care Team Providers Care Evaporator Repairer Name Role Phone Rayna Villanueva RN Unavailable [phone] Cindy Thomas RN Unavailable Unava Dorothy Tipton DO Primary Care Provider + Transplant Episode Kidney Recipient [facility] ([place], [place]) - [facility] Organ Received: Left Kidney Transplanted on 01/07/2007 Marked as Active Follow-up on 01/07/2007 Kidney CoordinatorCindy Thomas RN Phone: N/A Fax: N/A Email: N/A [place] Organ Diagnosis Organ Primary Contributory Kidney Polycystic [...] Villanueva RN Secondary Coordinator Secondary Kidney Coordinator [phone] N/A N/A Cindy Jared William, chute tenderVisual Supervisor N/A N/A N/A Allison Bartholomew Primary Gastroenterologist N/A N/A N/A Events Post-Transplant Pre-Transplant Admitted: 01/07/2007 Referred: 11/19/2004 Transplanted: 01/07/2007 Evaluation began: 5 Discharged: 01/11/2007 Center waitlisted: 6 Dialysis History Dialysis History Start End Type Comments Center 04/07/2006 01/07/2007 Trina Dominguez,W,F 2:30 pm [facility] Dialysis Center Information Center Phone Fax Address [facility] [phone] [address] [address]
--- OUTSIDE RECORDS SUMMARY | 2025-02-17 07:29 | XMS_ITS | Clinical Summary ---
Author Organization [facility] al Address 1 [place] [address] Care Team Providers Care Supervisor Travel Information Center Name Role Phone Rayna Villanueva RN Unavailable Cindy Thomas RN Unavailable Unava Dorothy Tipton DO Primary Care Provider + Allergies Active Allergy Reactions Criticality Noted Date Comments Penicillins Unknown 07/18/2008 Medications levothyroxine (SYNTHROID) 50 mcg tablet Take 1 tablet (50 mcg total) by mouth road tester before breakfast Active amLODIPine (NORVASC) 10 mg [...] daily Active vitamins A,C,E-zinc-marco a er 7,160-113-100 syqv-qg-mful tablet,delayed release (DR/EC) Take by mouth Active [...] migh t be different from the original. [facility] [phone] opt 3, [phone] Standing Order q3-FK, HgbA1C Exp. 02/13/26 Problem [...] Department Care Team Description 02/13/2025 Orders Only [facility] Transplant Kidney [address] [facility] [address] [phone] [place] [address] Allison Bartholomew Kidney transplanted (Primary Dx); Encounter for long-term (current) use of high-risk medication; Hyperlipidemia, unspecified hyperlipidemia type; Type 1 diabetes mellitus with hyperglycemia (HCC) 02/11/2025 Lab [facility] Transplant Kidney [address] [place] [address] 34[address] [phone] [place] [address] Joe Buckley MD 02/10/2025 9:30 AM CDT Office Visit [facility] [address] [place] [address] [address] [place] [address] Jared Manjarrez MD Type 2 diabetes mellitus without complication, with long-term current use of insulin (HCC) (Primary Dx); Primary hypothyroidism; Essential hypertension; Dyslipidemia 02/10/2025 Lab [facility] Transplant Kidney [address] [place] [address] 34[address] [phone] [place] [address] Joe Buckley MD 01/07/2025 Telephone [facility] Transplant Kidney [address] [place] [address] 340 [address] [phone] [place] [address] Rashad Delgado from Last 3 Months Immunizations [...] on file Legal Sex Female 2:14 AM SKULL SPLITTER Gender Identity Not on file Sexual Orientation [...] Read Routine (OP Routine) 09/07/2021 9:57 AM SKULL SPLITTER Encounter for screening mammogram for malignant neoplasm [...] TXP NO LAB FOUND Blood 02/07/2025 Result [facility] Provider LAB BLOOD ORDERABLES Edit ed Result - Final Performing Organization Address [facility] Co de Phone Number TXP NO LAB FOUND * Hemoglobin A1c (02/07/2025) SCRIBED Hemoglobin A1c 8.1 <5.7 % TXP NO LAB FOUND Blood 02/07/2025 Result [facility] Provider LAB BLOOD ORDERABLES Trinidad l Result Performing Organization Address [facility] de Phone Number TXP NO LAB [...] TXP NO LAB FOUND Blood 02/07/2025 Result [facility] Provider LAB BLOOD ORDERABLES Trinidad l Result Performing Organization Address [facility] Co de Phone Number TXP NO LAB [...] Units/L TXP NO LAB FOUND Blood 02/07/2025 [facility] Provider LAB BLOOD ORDERABLES Trinidad l Result TXP NO LAB FOUND * (ABNORMAL) Renal function panel (02/07/2025) Pathologist [facility] SCRIBED Calcium 9.8 8.4 - 10.2 mg/dl [...] NO LAB FOUND SCRIBED eGFR in NonAfrican [place]er >60 >=60 TXP NO LAB FOUND SCRIBED Urea Nitrogen (BUN) 12 7 - 17 mg/dl TXP NO LAB FOUND Blood 02/07/2025 Historical Provider LAB BLOOD ORDERABLES Trinidad l Result Performing Organization Address [facility]/ZIP Co de Phone Number TXP NO LAB [...] NO LAB FOUND SCRIBED eGFR in NonAfrican [place] >60 >=60 TXP NO LAB FOUND SCRIBED Urea Nitrogen (BUN) 12 7 - 17 mg/dl TXP NO LAB FOUND Blood 02/07/2025 Result [facility] Historical Provider LAB BLOOD ORDERABLES Edit ed Result - Final Performing Organization Address [facility] Co de Phone Number TXP NO LAB FOUND * Lipid panel (02/07/2025) SCRIBED Cholesterol, Total 129 0 - 200 TXP NO LA B FOUND SCRIBED HDL 73 >35 TXP NO L AB FOUND SCRIBED LDL 40 <130 TXP NO L AB FOUND SCRIBED Triglycerides 55 <150 TXP NO LAB FOUND Blood 02/07/2025 Historical Provider LAB BLOOD ORDERABLES Trinidad l Result Performing Organization Address [facility]/ZIP Co de Phone Number TXP NO LAB [...] ORDERABLES Trinidad l Result Performing Organization Address City/State/[facility] Co de Phone Number TXP NO LAB FOUND * TSH (01/12/2024) Scribed TSH 3.14 0.47 - 4.68 mcU/mL TXP NO LAB FOUND Blood 01/12/2024 Historical Provider LAB BLOOD ORDERABLES Trinidad l Result Performing Organization Address [facility] Co de Phone Number TXP NO LAB FOUND * Screening Mammogram Bilateral W Drew (09/07/2021 9:57 AM SKULL SPLITTER) Anatomical Region Laterality Modality Breast Bilateral Mammography Narrative 09/09/2021 8:50 AM SKULL SPLITTER Mammogram Technique: Bilateral Digital Breast Tomosynthesis, Bilateral C-view 2D Screening mammogram. Views obtained: bilateral craniocaudal and bilateral mediolateral oblique. Computer Aided Detection was performed. Mammogram Findings: The present examination has been compared to prior imaging studies performed at [facility] on 03/20/2018, 03/25/2019 and 07/16/2020. There [...] compared to prior imaging studies performed at [facility] on 03/20/2018, 03/25/2019 and 07/16/2020. There [...] Recently Relevant to Health Maintenance Insurance MEDICARE [facility] MEDICARE COMMERCIAL GENERIC ANTHEM ACCESS ANTHEM MEDICARE HMO PPO Member Subscriber Plan / Payer (Ef fective 2020-Present) Name:Lisy Pandey Relation to Subscriber:Self Name:Lisy Pandey Payer ID:[id number] (NAIC) Group ID:[id number] Type:MEDICARE RISK OTHER Address: [address] MEDICARE [employer] MEDICARE SUPPLEMENT Care Teams Supervisor Travel Information Center Relationship Specialty Start Date End Date Dorothy Cloud DO PCP - General Family Medicine 01/03/23 Rayna Villanueva, RN [address] [address] Secondary Kidney Coordinator Transplant 11/19/20 Cindy Thomas, pharmacologistExport Manager Transplant 02/16/22
--- OUTSIDE RECORDS SUMMARY | 2025-02-17 07:29 | XMS_ITS | Referral Summary ---
Author Organization [facility] Address [address] [place] [address] Care Team Providers Care Can Stacker Name Role Phone Rayna Villanueva RN Unavailable Cindy Thomas RN Unavailable Unava ilable Dorothy Cloud DO Primary Care Provider + Encounters Date Type Department Care Team Description 02/13/2025 Orders Only [facility] Trans[facility] Kidney [address] [id number] [place] [address] Allison Bartholomew Kidney transplanted (Primary Dx); Encounter for long-term (current) use of high-risk medication; Hyperlipidemia, unspecified hyperlipidemia type; Type 1 diabetes mellitus with hyperglycemia (HCC) 02/11/2025 Lab [facility] Transplant Kidney [address]op [id number] [place] [address] Joe Buckley MD 02/10/2025 Lab [facility] Transplant Kidney [address] [phone] [place] [address] Joe Buckley MD 02/10/2025 9:30 AM CDT Office Visit [facility] [address] [place] [address] [address] [facility] [place] [phone] Jared Manjarrez MD Type 2 diabetes mellitus without complication, with long-term current use of insulin (HCC) (Primary Dx); Primary hypothyroidism; Essential hypertension; Dyslipidemia 01/07/2025 Telephone [facility] Transplant Kidney [address] [facility] [address] Mail[address] [id number] [place] [address] Rashad Delgado from Last 3 Months Allergies Active Allergy Reactions Criticality Noted Date Comments Penicillins Unknown 07/18/2008 Medications levothyroxine (SYNTHROID) 50 mcg tablet Take 1 tablet (50 mcg total) by mouth senior firewall engineer before breakfast Active amLODIPine (NORVASC) 10 mg [...] daily Active vitamins A,C,E-zinc-marco a er 7,160-113-100 xvud-qv-aazs tablet,delayed release (DR/EC) Take by mouth Active OneTouch Ultra Test stripIndication s:Type 2 diabetes mellitus without complication, with long-term current use of insulin ([facility]) USE TO TEST BLOOD SUGAR FOUR TIMES DAILY DIRECTED 400 strip 022 Active pen needle, diabetic 31 gauge x 5/16 needleIndicatio ns:Type 2 diabetes mellitus without complication, with long-term current use of insulin ([facility]) USE 1 PEN NEEDLE 4 TIMES DAILY [...] migh t be different from the original. [facility] [id number] opt 3, [id number] Standing Order q3-FK, HgbA1C Exp. 02/13/26 Problem [...] on file Legal Sex Female 2:14 AM HOSPITAL SUPERVISOR Gender Identity Not on file Sexual Orientation [...] Read Routine (OP Routine) 09/07/2021 9:57 AM HOSPITAL SUPERVISOR Encounter for screening mammogram for malignant neoplasm [...] ORDERABLES Trinidad l Result Performing Organization Address [facility]/ZIP Co de Phone Number TXP NO LAB [...] TXP NO LAB FOUND Blood 02/07/2025 Result [facility] Provider LAB BLOOD ORDERABLES Trinidad l Result Performing Organization Address [facility]/RUST Co de Phone Number TXP NO LAB [...] TXP NO LAB FOUND Blood 02/07/2025 Result [facility] Provider LAB BLOOD ORDERABLES Trinidad l Result Performing Organization Address [facility] de Phone Number TXP NO LAB FOUND [...] Units/L TXP NO LAB FOUND Blood 02/07/2025 [facility] Provider LAB BLOOD ORDERABLES Trinidad l Result Performing Organization Address [facility]/ZIP Co de Phone Number TXP NO LAB [...] NO LAB FOUND SCRIBED eGFR in NonAfrican Uzbek >60 >=60 TXP NO LAB FOUND SCRIBED [...] NO LAB FOUND SCRIBED eGFR in NonAfrican Uzbek >60 >=60 TXP NO LAB FOUND SCRIBED Urea Nitrogen (BUN) 12 7 - 17 mg/dl TXP NO LAB FOUND Blood 02/07/2025 Historical Provider LAB BLOOD ORDERABLES Edit ed Result - Final Performing Organization Address [facility]/ZIP Co de Phone Number TXP NO LAB FOUND * Lipid panel (02/07/2025) SCRIBED Cholesterol, Total 129 0 - 200 TXP NO LA B FOUND SCRIBED HDL 73 >35 TXP NO L AB FOUND SCRIBED LDL 40 <130 TXP NO L AB FOUND SCRIBED Triglycerides 55 <150 TXP NO LAB FOUND Blood 02/07/2025 Historical Provider LAB BLOOD ORDERABLES Trinidad l Result Performing Organization Address [facility]/ZIP Co de Phone Number TXP NO LAB [...] Mammogram Bilateral W Drew (09/07/2021 9:57 AM HOSPITAL SUPERVISOR) Anatomical Region Laterality Modality Breast Bilateral Mammography Narrative 09/09/2021 8:50 AM HOSPITAL SUPERVISOR Mammogram Technique: Bilateral Digital Breast Tomosynthesis, Bilateral C-view 2D Screening mammogram. Views obtained: bilateral craniocaudal and bilateral mediolateral oblique. Computer Aided Detection was performed. Mammogram Findings: The present examination has been compared to prior imaging studies performed at [facility] on 03/20/2018, 03/25/2019 and 07/16/2020. There [...] compared to prior imaging studies performed at [facility] on 03/20/2018, 03/25/2019 and 07/16/2020. There [...] Recently Relevant to Health Maintenance Insurance MEDICARE [place] [employer] [place] MEDICARE COMMERCIAL GENERIC ANTH ACCESS ANTHEM MEDICARE HMO PPO Member Subscriber Plan / Payer (Ef fective 2020-Present) Name:Lisy Pandey Relation to Subscriber:Self Name:Lisy Pandey Payer ID:[id number] (NAIC) Group ID:[id number] Type:MEDICARE RISK OTHER Address: [address] MEDICARE [facility] MEDICARE SUPPLEMENT Care Teams Can Stacker Relationship Specialty Start Date End Date Dorothy Cloud DO PCP - General Family Medicine 01/03/23 Rayna Villanueva, RN [address] [address] Secondary Kidney Coordinator Transplant 11/19/20 Cindy Thomas, system sales consultantCorporate Sales Trainer Transplant 02/16/22
[2025-02-17 07:31] VITALS: BP 145/81; PULSE 58; RESP 10; O2SAT 99
[2025-02-17] MEDS: ACETAMINOPHEN 325 MG TABLET 650 MG PO (07:47)
--- NOTE | 2025-02-17 07:58 | ED.GENADULT ---
HPI - General Adult General Chief complaint: Unspecified Stated complaint: pain right side ribs Time Seen by Provider: 02/17/25 07:02 History of Present Illness HPI narrative: Patient is a 79-year-old female who presents ER with sudden onset pain in the right chest wall just behind her breast and laterally. She was rolling over in bed when she had a sudden onset pain. It was originally sharp now it is bit more dull. Worse with direct palpation. No dyspnea or cough. No productive cough or hemoptysis. No lower extremity swelling. No recent trauma or long distance travel. No history of DVT or PE. Has not tried any pain medication. Has history of kidney transplant in 2006. Related Data Home Medications ?Medication ?Instructions ?Recorded ?Confirmed ?Last Taken ?Type multivitamin 1 tablet PO DAILY 04/07/22 01/23/25 Unknown History prednisone 2.5 mg tablet 2.5 mg PO DAILY 04/07/22 01/23/25 Unknown History tacrolimus 1 mg capsule, 1.5 mg PO DAILY 04/07/22 01/23/25 Unknown History immediate-release vitamins A,C,U-jszf-iqdscq 4,296 1 cap PO BID 04/07/22 01/23/25 Unknown History mcg-226 mg-90 mg capsule (PreserVision AREDS) cholecalciferol (vitamin D3) 25 1,000 unit PO BID 12/14/22 01/23/25 Unknown History mcg (1,000 unit) capsule insulin aspart U-100 100 unit/mL 10 unit subcut TID 12/14/22 01/23/25 Unknown History (3 mL) subcutaneous pen (Novolog FlexPen U-100 Insulin aspart) insulin glargine U-300 conc 300 25 unit subcut DAILY 12/14/22 01/23/25 Unknown History unit/mL (3 mL) subcutaneous pen (Toujeo Max U-300 SoloStar) mycophenolate sodium 360 mg 720 mg PO DAILY 06/26/24 01/23/25 Unknown History tablet,delayed release Allergies Allergy/AdvReac Type Severity Reaction Status Date / Time labetalol Allergy Unknown head itches Verified 02/17/25 06:10 Penicillins Allergy Unknown Nausea Verified 02/17/25 06:10 Review of Systems Review of Systems: All systems reviewed & are unremarkable except as noted in HPI and below Constitutional: Constitutional: Reports no additional constitutional complaints ENT: Reports system reviewed and no additional complaints, except as documented Cardiovascular: Cardiovascular: Reports no additional cardiovascular complaints Respiratory: Respiratory: Reports no additional respiratory complaints Musculoskeletal: Musculoskeletal: Reports no additional musculoskeletal complaints [facility] Past Medical History Medical History (Updated 02/17/25 @ 09:02 by Miguel Ángel Blake MD) DVT (deep venous thrombosis) s/p surgery in 2006 Osteoporosis Aortic heart murmur Hypothyroidism, unspecified Essential (primary) hypertension Mixed hyperlipidemia Type 2 diabetes mellitus with chronic kidney disease, without long-term current use of insulin Surgical History Surgical History Kidney transplant recipient H/O tubal ligation Kidney transplant recipient Family History Family History Mother Diabetes mellitus, Onset Age: 67 Hypertension, Onset Age: 67 Cerebrovascular accident, Onset Age: 67 Family history of kidney disease, Onset Age: 67 Father Hypertension, Onset Age: 69 Cerebrovascular accident, Onset Age: 69 Social History Social History (Updated 01/30/25 @ 12:53 by Clau Wallace [facility]) Social History: caffeine use Smoking status: Never smoker Second hand tobacco smoke exposure: No Alcohol intake: never Lack of Transportation: No Lack of Food: Never True Current Housing: I Have Housing Concerned About Future Housing: No Difficulty Paying Gas/Electric Bills: No Difficulty Paying for Meds: No Currently Unemployed: No Education: High School Diploma/GED Difficulty w/ Childcare or Family Care: No Exam Narrative: GENERAL: Well-appearing, well-nourished, and in no acute distress. HEAD: Normocephalic, atraumatic. ENT: Mucous membranes moist. CHEST: Clear to auscultation. No respiratory distress. Mild tenderness around the right breast laterally and inferiorly with light palpation reproducing patient's discomfort. HEART: Regular rate and rhythm. Normal peripheral pulses. EXTREMITIES: Normal range of motion. No edema. SKIN: Warm, dry, no rash. NEURO: Alert and oriented x3. PSYCH: Normal mood and affect. Course Course Emergency Course: Well's of 1.5, low risk PE. Farner to be musculoskeletal. Recommend scheduled tylenol. D/c home. Vital Signs Vital signs: Vital Signs Temperature 98.3 F 02/17/25 06:27 Pulse Rate 68 02/17/25 06:27 Respiratory Rate 15 02/17/25 06:27 Blood Pressure 162/66 H 02/17/25 06:27 Pulse Oximetry 100 02/17/25 06:27 Temperature 98.3 F 02/17/25 06:27 Pulse Rate 58 L 02/17/25 07:31 Respiratory Rate 10 L 02/17/25 07:31 Blood Pressure 145/81 H 02/17/25 07:31 Pulse Oximetry 99 02/17/25 07:31 Medical Decision Making Vital Signs Vital Signs: Vital Signs Temperature 98.3 F 02/17/25 06:27 Pulse Rate 68 02/17/25 06:27 Respiratory Rate 15 02/17/25 06:27 Blood Pressure 162/66 H 02/17/25 06:27 Pulse Oximetry 100 02/17/25 06:27 Temperature 98.3 F 02/17/25 06:27 Pulse Rate 58 L 02/17/25 07:31 Respiratory Rate 10 L 02/17/25 07:31 Blood Pressure 145/81 H 02/17/25 07:31 Pulse Oximetry 99 02/17/25 07:31 Imaging Data Radiologist's impression: ITS Impressions Ribs w/Chest X-Ray 02/17/25 08:18 IMPRESSION: 1. No rib fractures identified. 2. Mild discoid atelectasis at the bilateral lower lungs. Discharge Plan Discharge Clinical Impression: Chest wall pain Patient Disposition: Home Condition: Stable Instructions: Chest Wall Pain (ED) Additional Instructions: Return ER if you have chest pain with shortness of breath, you cannot keep down food water, your coughing up blood, or you have additional concerns. Take tylenol for pain. Patient Language: Occitan Prescriptions: No Action mycophenolate sodium 360 mg tablet,delayed release (DR/EC) 720 mg PO DAILY tacrolimus 1 mg capsule 1.5 mg PO DAILY prednisone 2.5 mg tablet 2.5 mg PO DAILY multivitamin Tablet 1 tablet PO DAILY PreserVision AREDS 14,320-226-200 bhte-kp-cnoe capsule 1 cap PO BID cholecalciferol (vitamin D3) 25 mcg (1,000 unit) capsule 1,000 unit PO BID Toujeo Max U-300 SoloStar 300 unit/mL (3 mL) insulin pen 25 unit subcut DAILY insulin aspart U-100 [Novolog FlexPen U-100 Insulin] 100 unit/mL (3 mL) insulin pen 10 unit subcut TID Patient Comments: Sliding Scale methylprednisolone acetate 80 mg/mL suspension 80 mg intra-articular ONCE Qty: 1 0RF acetaminophen 500 mg capsule 500 mg PO Q6H PRN (Reason: pain) Qty: 20 0RF calcitonin (salmon) 200 unit/actuation spray,non-aerosol 1 spray intranasal (ALT) DAILY Qty: 3.7 5RF amlodipine 10 mg tablet See Rx Instructions .ROUTE .COMPLEX Qty: 90 0RF Dose Instruction: Take 1 tablet by mouth once daily Rx Instructions: Take 1 tablet by mouth once daily losartan 100 mg tablet See Rx Instructions .ROUTE .COMPLEX Qty: 90 1RF Dose Instruction: Take 1 tablet by mouth once daily Rx Instructions: Take 1 tablet by mouth once daily simvastatin 20 mg tablet 20 mg PO DAILY Qty: 90 1RF levothyroxine [Euthyrox] 50 mcg tablet See Rx Instructions .ROUTE .COMPLEX Qty: 90 1RF Dose Instruction: Take 1 tablet by mouth once daily Rx Instructions: Take 1 tablet by mouth once daily Follow-up/Referrals: Dorothy Cloud DO [Primary Care Provider] - 1 Week
[2025-02-17 09:15] VITALS: BP 139/54; PULSE 66; RESP 14; O2SAT 100
== END 2025-02-17 09:24 | disposition home or self-care (01) ==
PROVIDERS: Emergency Provider Emergency Medicine; PCP Family Medicine
DX: R07.89 Other chest pain (principal); E11.22 Type 2 diabetes mellitus with diabetic chronic kidney disease; I12.9 Hypertensive chronic kidney disease with stage 1 through stage 4 chronic kidney disease, or unspecified chronic kidney disease; N18.9 Chronic kidney disease, unspecified; E03.9 Hypothyroidism, unspecified; E78.2 Mixed hyperlipidemia; M81.0 Age-related osteoporosis without current pathological fracture; Z86.718 Personal history of other venous thrombosis and embolism; Z94.0 Kidney transplant status; Z79.4 Long term (current) use of insulin; Z79.899 Other long term (current) drug therapy
CPT/HCPCS: 71046; 71100; 99283; A9270

== ENCOUNTER 2025-04-09 10:35 | Outpatient (CLI) | payer MEDICARE, SELFPAY ==
--- OUTSIDE RECORDS SUMMARY | 2025-04-09 12:06 | XMS_ITS | Clinical Summary ---
Author Organization [facility] Address [address] [place] [address] Care Team Providers Care Forestry Instructor Name Role Phone Rayna Villanueva RN Unavailable [phone] Cindy Thomas RN Unavailable Unava Dorothy Tipton DO Primary Care Provider + Allergies Active Allergy Reactions Criticality Noted Date Comments Penicillins Unknown 07/18/2008 Medications levothyroxine (SYNTHROID) 50 mcg tablet Take 1 tablet (50 mcg total) by mouth cement fittings maker before breakfast Active amLODIPine (NORVASC) 10 mg [...] daily Active vitamins A,C,E-zinc-marco a er 7,160-113-100 yeoq-mg-vkxn tablet,delayed release (DR/EC) Take by mouth Active OneTouch Ultra Test stripIndication s:Type 2 diabetes mellitus without complication, with long-term current use of insulin (HCC) USE TO TEST BLOOD SUGAR FOUR TIMES DAILY DIRECTED 400 strip 022 Active tacrolimus 1 mg immediate-relea se capsuleIndicati ons:Kidney replaced by transplant TAKE ONE CAPSULE BY MOUTH DAILY 90 capsule 3 08/26/2 024 Active predniSONE (DELTASONE) 2.5 mg tabletIndicatio ns:Kidney replaced by transplant TAKE ONE TABLET BY MOUTH DAILY 90 tablet 3 024 Active multivitamin tabletIndicatio ns:Vitamin Deficiency Prevention Take 1 tablet by mouth Active tacrolimus 0.5 mg immediate-relea se capsuleIndicati [...] 28 Units subcutaneous Daily, Reported on 02/10/2025 pen needle, diabetic 31 gauge x 5/16 needleIndicatio ns:Type 2 diabetes mellitus without complication, with long-term current use of insulin (HCC) USE WITH INSULIN INJECTIONS 4 TIMES DAILY 50 each 3 025 Active NovoLOG 100 unit/mL (3 mL) pen for injection INJECT UP TO 15 UNITS SUBCUTANEOUSLY THREE TIMES DAILY WITH MEALS 15 mL 025 Active NovoLOG 100 unit/mL (3 mL) pen for injection INJECT UP TO 15 UNITS SUBCUTANEOUSLY THREE TIMES DAILY WITH MEALS. 15 mL 3 024 2024 Discontinued Active Problems Patient Care Coordination No te Formatting of this note migh t be different from the original. [facility] [id number] opt 3, [phone] Standing Order q3-FK, HgbA1C Exp. 02/13/26 Problem [...] Department Care Team Description 02/13/2025 Orders Only [facility] Transplant Kidney [address] [facility] [address] Mail[address] [phone] [place] [address] Allison Bartholomew Kidney transplanted (Primary Dx); Encounter for long-term (current) use of high-risk medication; Hyperlipidemia, unspecified hyperlipidemia type; Type 1 diabetes mellitus with hyperglycemia (HCC) 02/11/2025 Lab [facility] Transplant Kidney [address] [facility] [address] Mailstop [phone] [place] [address] Joe Buckley MD 02/10/2025 9:30 AM CDT Office Visit [facility] [address] [place] [address] [address] [place] [facility] [place] [phone] Jared Manjarrez MD Type 2 diabetes mellitus without complication, with long-term current use of insulin (HCC) (Primary Dx); Primary hypothyroidism; Essential hypertension; Dyslipidemia 02/10/2025 Lab [facility] Transplant Kidney [address] [facility] [address] Mailstop [phone] [place] [address] Joe Buckley MD 01/07/2025 Telephone [facility] Transplant Kidney [address] [facility] [address] Mail[address] [phone] [place] [address] Rashad Delgado from Last 3 Months Immunizations [...] on file Legal Sex Female 2:14 AM SHOE COVERER Gender Identity Not on file Sexual Orientation [...] 9:10 AM CDT Height 165.1 cm (5' 5) 02/10/2025 9:10 AM CDT Body Mass Index [...] Read Routine (OP Routine) 09/07/2021 9:57 AM SHOE COVERER Encounter for screening mammogram for malignant neoplasm [...] TXP NO LAB FOUND Blood 02/07/2025 Result [facility] Provider LAB BLOOD ORDERABLES Edit ed Result - Final Performing Organization Address [facility] de Phone Number TXP NO LAB FOUND * Hemoglobin A1c (02/07/2025) SCRIBED Hemoglobin A1c 8.1 <5.7 % TXP NO LAB FOUND Blood 02/07/2025 Result [facility] Provider LAB BLOOD ORDERABLES Trinidad l Result Performing Organization Address [facility] de Phone Number TXP NO LAB [...] TXP NO LAB FOUND Blood 02/07/2025 Result [facility] Provider LAB BLOOD ORDERABLES Trinidad l Result Performing Organization Address [facility] de Phone Number TXP NO LAB [...] Units/L TXP NO LAB FOUND Blood 02/07/2025 Historical Provider LAB BLOOD ORDERABLES Trinidad l Result Performing Organization Address [facility] de Phone Number TXP NO LAB [...] NO LAB FOUND SCRIBED eGFR in NonAfrican Greek >60 >=60 TXP NO LAB FOUND SCRIBED Urea Nitrogen (BUN) 12 7 - 17 mg/dl TXP NO LAB FOUND Blood 02/07/2025 Historical Provider LAB BLOOD ORDERABLES Trinidad l Result Performing Organization Address [facility]/ZIP Co de Phone Number TXP NO LAB [...] NO LAB FOUND SCRIBED eGFR in NonAfrican Greek >60 >=60 TXP NO LAB FOUND SCRIBED Urea Nitrogen (BUN) 12 7 - 17 mg/dl TXP NO LAB FOUND Blood 02/07/2025 Historical Provider LAB BLOOD ORDERABLES Edit ed Result - Final TXP NO LAB FOUND * Lipid panel (02/07/2025) SCRIBED Cholesterol, Total 129 0 - 200 TXP NO LA B FOUND SCRIBED HDL 73 >35 TXP NO L AB FOUND SCRIBED LDL 40 <130 TXP NO L AB FOUND SCRIBED Triglycerides 55 <150 TXP NO LAB FOUND Blood 02/07/2025 Historical Provider LAB BLOOD ORDERABLES Trinidad l Result TXP NO LAB FOUND * Lipid panel [...] ORDERABLES Trinidad l Result Performing Organization Address [facility] Co de Phone Number TXP NO LAB FOUND * Screening Mammogram Bilateral W Drew (09/07/2021 9:57 AM SHOE COVERER) Anatomical Region Laterality Modality Breast Bilateral Mammography Narrative 09/09/2021 8:50 AM SHOE COVERER Mammogram Technique: Bilateral Digital Breast Tomosynthesis, Bilateral C-view 2D Screening mammogram. Views obtained: bilateral craniocaudal and bilateral mediolateral oblique. Computer Aided Detection was performed. Mammogram Findings: The present examination has been compared to prior imaging studies performed at [facility] on 03/20/2018, 03/25/2019 and 07/16/2020. There [...] compared to prior imaging studies performed at [facility] on 03/20/2018, 03/25/2019 and 07/16/2020. There [...] Recently Relevant to Health Maintenance Insurance MEDICARE [facility] MEDICARE COMMERCIAL GENERIC ANTHEM ACCESS ANTHEM MEDICARE H[place] [place] [address] MEDICARE [facility] MEDICARE SUPPLEMENT Care Teams Forestry Instructor Relationship Specialty Start Date End Date Dorothy Cloud DO PCP - General Family Medicine 01/03/23 Rayna Villanueva, RN [address] [address] Secondary Kidney Coordinator Transplant 11/19/20 Cindy Thomas, preventive medicine specialistBusiness Trainer Transplant 02/16/22
--- OUTSIDE RECORDS SUMMARY | 2025-04-09 12:06 | XMS_ITS | Referral Summary ---
Author Organization [facility] Address [address] [place] [address] Care Team Providers Care Spar Cap Beveler Name Role Phone Rayna Villanueva RN Unavailable Cindy Thomas RN Unavailable Unava ilable Dorothy Cloud DO Primary Care Provider + Encounters Date Type Department Care Team Description 02/13/2025 Orders Only [facility] Transplant Kidney [address] [address] [id number] [place] [address] Allison Bartholomew Kidney transplanted (Primary Dx); Encounter for long-term (current) use of high-risk medication; Hyperlipidemia, unspecified hyperlipidemia type; Type 1 diabetes mellitus with hyperglycemia (HCC) 02/11/2025 Lab [facility] Transplant Kidney [address] [address] [phone] [place] [address] Joe Buckley MD 02/10/2025 Lab [facility] Transplant Kidney [address] [facility] [address] [phone] [place] [address] Joe Buckley MD 02/10/2025 9:30 AM CDT Office Visit [facility] [address] [place] [address] [address] [facility] [place] [phone] Jared Manjarrez MD Type 2 diabetes mellitus without complication, with long-term current use of insulin (HCC) (Primary Dx); Primary hypothyroidism; Essential hypertension; Dyslipidemia 01/07/2025 Telephone [facility] Transplant Kidney [address] [facility] [address] [phone] [place] [address] Rashad Delgado from Last 3 Months Allergies Active Allergy Reactions Criticality Noted Date Comments Penicillins Unknown 07/18/2008 Medications levothyroxine (SYNTHROID) 50 mcg tablet Take 1 tablet (50 mcg total) by mouth acoustical logging engineer before breakfast Active amLODIPine (NORVASC) 10 [...] daily Active vitamins A,C,E-zinc-marco a er 7,160-113-100 fexp-kl-ewjs tablet,delayed release (DR/EC) Take by mouth Active [...] (two) times a day 180 tablet 3 03/18/2 025 Active insulin glargine (TOUJEO) 300 unit/mL [...] migh t be different from the original. [facility] [phone] opt 3, [phone] Standing Order q3-FK, HgbA1C Exp. 02/13/26 Problem [...] on file Legal Sex Female 2:14 AM ADDICTION SOCIAL WORKER Gender Identity Not on file Sexual Orientation [...] Read Routine (OP Routine) 09/07/2021 9:57 AM ADDICTION SOCIAL WORKER Encounter for screening mammogram for malignant neoplasm of breast from Last 3 Months or Most Recently Relevant to Health Maintenance Results * (ABNORMAL) POCT hemoglobin A1c (02/10/2025 9:20 AM CDT) Hemoglobin A1C, POC 8.8 4.0 - 5.6 % Blood 02/10/2025 9:20 AM CDT Jared Manjarrez MD POINT OF CARE TEST ORDER ISAURO Final Result * (ABNORMAL) Tacrolimus level trough (02/07/2025) Pathologist [facility] SCRIBED Tacrolimus, trough 3.5(A) 5 - 20 TXP NO LAB FOUND Blood 02/07/2025 Historical Provider LAB BLOOD ORDERABLES Trinidad l Result Performing Organization Address [facility]/ZIP Co de Phone Number TXP NO LAB FOUND * (ABNORMAL) CBC with auto differential (02/07/2025) Pathologist [facility] SCRIBED WBC 3.9(A) 4.5 - 10.0 k/cumm [...] ed Result - Final Performing Organization Address [facility]/ZIP Co de Phone Number TXP NO LAB FOUND * Hemoglobin A1c (02/07/2025) Pathologist [facility] SCRIBED Hemoglobin A1c 8.1 <5.7 % TXP NO LAB FOUND Blood 02/07/2025 [facility] Provider LAB BLOOD ORDERABLES Trinidad l Result Performing Organization Address [facility] Phone Number TXP NO LAB FOUND [...] Units/L TXP NO LAB FOUND Blood 02/07/2025 [facility] Provider LAB BLOOD ORDERABLES Trinidad harvey Result Performing Organization Address [facility] Phone Number TXP NO LAB FOUND [...] Units/L TXP NO LAB FOUND Blood 02/07/2025 [facility] Provider LAB BLOOD ORDERABLES Trinidad l Result Performing Organization Address [facility] Co de Phone Number TXP [...] NO LAB FOUND SCRIBED eGFR in NonAfrican Bahamian >60 >=60 TXP NO LAB FOUND SCRIBED Urea Nitrogen (BUN) 12 7 - 17 mg/dl TXP NO LAB FOUND Blood 02/07/2025 [facility] Provider LAB BLOOD ORDERABLES Trinidad l Result Performing Organization Address [facility] Co de Phone Number TXP [...] NO LAB FOUND SCRIBED eGFR in NonAfrican Bahamian >60 >=60 TXP NO LAB FOUND SCRIBED [...] ORDERABLES Trinidad l Result Performing Organization Address [facility]/ZIP Co de Phone Number TXP NO [...] ORDERABLES Trinidad l Result Performing Organization Address [facility]/State/ZIP Co de Phone Number TXP NO LAB FOUND * TSH (01/12/2024) Scribed TSH 3.14 0.47 - 4.68 mcU/mL TXP NO LAB FOUND Blood 01/12/2024 us Historical Provider LAB BLOOD ORDERABLES Trinidad harvey Result TXP NO LAB FOUND * Screening Mammogram Bilateral W Drew (09/07/2021 9:57 AM ADDICTION SOCIAL WORKER) Anatomical Region Laterality Modality Breast Bilateral Mammography Narrative 09/09/2021 8:50 AM ADDICTION SOCIAL WORKER Mammogram Technique: Bilateral Digital Breast Tomosynthesis, Bilateral C-view 2D Screening mammogram. Views obtained: bilateral craniocaudal and bilateral mediolateral oblique. Computer Aided Detection was performed. Mammogram Findings: The present examination has been compared to prior imaging studies performed at [facility] on 03/20/2018, 03/25/2019 and 07/16/2020. There [...] compared to prior imaging studies performed at [facility] on 03/20/2018, 03/25/2019 and 07/16/2020. There [...] Relevant to Health Maintenance Insurance MEDICARE [facility] MEDICARE COMMERCIAL GENERIC [facility] ACCESS ANTHEM MEDICARE HMO PPO [facility] OTHER Address: [address] MEDICARE [facility] MEDICARE SUPPLEMENT Care Teams Spar Cap Beveler Relationship Specialty Start Date End Date Dorothy Cloud DO PCP - General Family Medicine 01/03/23 Rayna Villanueva, RN [address] [address] Secondary Kidney Coordinator Transplant 11/19/20 Cindy Tohmas, director of ancillary servicesTumble Tailstock Turret Lathe Operator Transplant 02/16/22
--- OUTSIDE RECORDS SUMMARY | 2025-04-09 12:06 | XMS_ITS ---
Author Organization [facility] Address [address] [place] [address] Care Team Providers Care Stay Cutter Name Role Phone Rayna Villanueva RN Unavailable Cindy Thomas RN Unavailable Unava Dorothy Tipton DO Primary Care Provider + Transplant Episode Kidney Recipient [facility] [place] - [facility] Organ Received: Left Kidney Transplanted on 01/07/2007 Marked as Active Follow-up on 01/07/2007 Kidney CoordinatorCindy Thomas RN Phone: N/A Fax: N/A Email: N/A [place] Organ Diagnosis Organ Primary Contributory Kidney Polycystic [...] Villanueva RN Secondary Coordinator Secondary Kidney Coordinator [phone] N/A N/A Cindy Jared William, recreational assistantPicker Feeder N/A N/A N/A Allison Bartholomew Primary Clinical Laboratory Director N/A N/A N/A Events Post-Transplant Pre-Transplant Admitted: 01/07/2007 Referred: 11/19/2004 Transplanted: 01/07/2007 Evaluation began: 5 Discharged: 01/11/2007 Center waitlisted: 6 Dialysis History Dialysis History Start End Type Comments Center 04/07/2006 01/07/2007 Trina Dominguez,W,F 2:30 pm [facility] Dialysis Center Information Center Phone Fax Address [facility] [phone] [address] [address]
[2025-04-09 19:25] LABS: Vitamin D 25 Hydroxy 42.3 ng/mL
== END 2025-04-09 10:36 | disposition home or self-care (01) ==
LOC: ANHGOSHLAB 10:37
PROVIDERS: PCP Family Medicine; Visit Provider Family Medicine
DX: E03.9 Hypothyroidism, unspecified (principal); M85.89 Other specified disorders of bone density and structure, multiple sites; E55.9 Vitamin D deficiency, unspecified; Z01.84 Encounter for antibody response examination; D84.9 Immunodeficiency, unspecified
CPT/HCPCS: 36415; 82306; 84439; 84443; 86787

== ENCOUNTER 2025-06-05 07:24 | Outpatient (RCR) | payer MEDICARE, SELFPAY ==
[2025-06-05 08:23] LABS: Hematocrit 42.3 % (37.0-47.0); Hemoglobin 13.7 g/dL (12.0-15.0); Immature Granulocyte Percent A 0.2 % (0-0.5); Lymphocytes Absolute Auto 1.25 K/mm3 (0.9-3.2); Mean Corpuscular HGB Conc 32.4 g/dl (32-36); Mean Corpuscular Hemoglobin 29.9 pg (26-34); Mean Corpuscular Volume 92.4 fl (80-100); Nucleated Red Blood Cells Absolute Auto 0.000 K/mm3 (0.0-0.012); Nucleated Red Blood Cells Perc 0.0 % (0.0-0.2); Platelet Count Result 158 k/mm3 (150-375); Red Blood Count 4.58 M/mm3 (4.2-5.4); White Blood Count 4.6 K/mm3 (4.5-10.0)
[2025-06-05 08:35] LABS: Hemoglobin A1C 7.6 % (<5.7)
[2025-06-05 08:43] LABS: Alanine Aminotransferase 14 U/L (6-35); Albumin Level 4.1 g/dL (3.5-5.1); Alkaline Phosphatase 49 U/L (38-126); Anion Gap 5 mmol/L (4-12); Aspartate Amino Transferase 26 U/L (14-36); Bilirubin,Total 0.5 mg/dL (0.2-1.3); Blood Urea Nitrogen 13 mg/dL (7-17); Calcium 10.0 mg/dL (8.4-10.2); Carbon Dioxide 26 mmol/L (22-30); Chloride 106 mmol/L (98-107); Cholesterol 131 mg/dL (0-200); Estimated Glomerular Filt Rate > 60; Glucose 176 mg/dL (65-110); HDL Direct 80 mg/dL; Potassium 4.1 mmol/L (3.4-5.0); Sodium 137 mmol/L (137-145); Total Protein 6.6 g/dL (6.3-8.2); Triglycerides 53 mg/dL (<150)
[2025-06-07 21:07] LABS: Tacrolimus (FK506), Blood 3.1 ng/mL (5.0-20.0)
== END 2025-09-03 23:59 | disposition home or self-care (01) ==
LOC: ANHLAB 07:24
PROVIDERS: PCP Family Medicine
DX: E10.65 Type 1 diabetes mellitus with hyperglycemia (principal); E78.5 Hyperlipidemia, unspecified; Z79.899 Other long term (current) drug therapy; Z94.0 Kidney transplant status
CPT/HCPCS: 36415; 80061; 80069; 80076; 80197; 83036; 85025

== ENCOUNTER 2025-08-19 09:11 | Emergency (ER) | payer MEDICARE, SELFPAY ==
--- NOTE | ~2025-08-19 | XR_ITS ---
EXAMINATION: XR finger 5th LT min 2V DATE: 08/19/2025 09:48 INDICATION: Twisting injury to the left fifth digit with decreased range of motion TECHNIQUE: Dorsal palmar, lateral and 2 oblique views of the left fifth digit were obtained COMPARISON: None FINDINGS: Diffuse osteopenia. Age-indeterminate swan neck deformity at the left fifth digit. No fractures. Chondrocalcinosis at the visualized aspect of the left wrist. A few additional tiny periarticular dystrophic calcifications at a few of the carpometacarpal and metacarpophalangeal joints. Mild to moderate p olyarticular osteoarthritis throughout the visualized left hand most prominent at the first carpometacarpal and first metacarpophalangeal joints. IMPRESSION: 1. Age-indeterminate swan-neck deformity at the left fifth digit. No fracture. 2. 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 Reviewed, dictated and finalized at location A. IMPRESSION: 1. Age-indeterminate swan-neck deformity at the left fifth digit. No fracture. 2. Chondrocalcinosis and mild to moderate polyarticular osteoarthritis at the l eft hand and wrist.
--- NOTE | 2025-08-19 09:13 | ED_ITS ---
HPI - Extremity Injury (Upper) General Chief Complaint: Extremity Injury, Upper Stated Complaint: INJURED L FINGER Source: patient and RN notes reviewed Mode of arrival: ambulatory Limitations: no limitations History of Present Illness HPI narrative: Patient is an 80-year-old female who presents to the [facility] with complaints of injury to her left 5th finger. Patient states that the injury occurred yesterday while she was attempting to get her cat in a carrier. Patient states that she does not know exactly how she injured the finger but she is unable to fully extend the finger. She is concerned for possible fracture. She is neurovascularly intact. Cap refill is normal. Patient is unable to extend the distal phalanx of the left 5th finger. Related Data Home Medications ?Medication ?Instructions ?Recorded ?Confirmed ?Last Taken ?Type multivitamin 1 tablet PO DAILY 04/07/22 1 Unknown History prednisone 2.5 mg tablet 2.5 mg PO DAILY 04/07/22 Unknown History tacrolimus 1 mg capsule, 1.5 mg PO DAILY 04/07/22 Unknown History immediate-release vitamins A,C,Y-sgld-rhfuru 4,296 1 cap PO BID 04/07/22 08/19/25 Unknown History mcg-226 mg-90 mg capsule (PreserVision AREDS) cholecalciferol (vitamin D3) 25 1,000 unit PO BID 11/2408/19/25 Unknown History mcg (1,000 unit) capsule mycophenolate sodium 360 mg 720 mg PO DAILY 06/26/24 1 Unknown History tablet,delayed release insulin aspart U-100 100 unit/mL 12 unit subcut TID 08/19/25 Unknown History (3 mL) subcutaneous pen (Novolog FlexPen U-100 Insulin aspart) insulin glargine U-300 conc 300 34 unit subcut DAILY 0 04/09/25 08/19/25 Unknown History unit/mL (3 mL) subcutaneous pen (Toujeo Max U-300 SoloStar) Allergies Allergy/AdvReac Type Severity Reaction Status Date / Time labetalol Allergy Unknown head itches Verified 08/19/25 09:23 Penicillins Allergy Unknown Nausea Verified 08/19/25 09:23 Review of Systems Review of Systems: CONSTITUTIONAL: Denies fever, chills, or sweats. EYES: Denies visual changes, redness, or discharge. ENT: Denies otalgia and sore throat CARDIOVASCULAR: Denies chest pain, palpitations, or edema. RESPIRATORY: Denies cough or dyspnea. GASTROINTESTINAL: Denies abdominal pain, nausea, vomiting, or diarrhea. GENITOURINARY: Denies dysuria or hematuria. SKIN: Denies rash or itching. MUSCULOSKELETAL: Reports left 5th finger injury. NEUROLOGIC: Denies headache, numbness, or weakness. Pertinent positives per HPI. PMFSH Past Medical History Medical History DVT (deep venous thrombosis) s/p surgery in 2006 Osteoporosis Aortic heart murmur Hypothyroidism, unspecified Essential (primary) hypertension Mixed hyperlipidemia Type 2 diabetes mellitus with chronic kidney disease, without long-term current use of insulin Surgical History Surgical History Kidney transplant recipient H/O tubal ligation Kidney transplant recipient Family History Family History Mother Diabetes mellitus, Onset Age: 67 Hypertension, Onset Age: 67 Cerebrovascular accident, Onset Age: 67 Family history of kidney disease, Onset Age: 67 Father Hypertension, Onset Age: 69 Cerebrovascular accident, Onset Age: 69 Social History Social History Social History: caffeine use Smoking status: Never smoker Second hand tobacco smoke exposure: No Alcohol intake: never Lack of Transportation: No Lack of Food: Never True Current Housing: I Have Housing Concerned About Future Housing: No Difficulty Paying Gas/Electric Bills: No Difficulty Paying for Meds: No Currently Unemployed: No Education: High School Diploma/GED Difficulty w/ Childcare or Family Care: No Comments At the time of my signature, I reviewed and agree with the nursing past medical, surgical, social, and family history. There is no relevant family history pertinent to the patient complaint. Exam Narrative: GENERAL: This is a well-nourished, well-developed patient, in no apparent distress. HEAD: normocephalic, atraumatic. EYES: Sclera clear/white. Vision is grossly intact. EARS: External ears normal. Hearing grossly intact. NOSE: External nose normal with no obvious nasal discharge, nares without redness, no rhinorrhea. THROAT: Mucous membranes moist, posterior pharynx clear. NECK: Neck supple, non-tender without lymphadenopathy, masses or thyromegaly. CARDIOVASCULAR: Regular rate and rhythm without murmurs, gallops, or rubs. RESPIRATORY: Clear to auscultation. Breath sounds equal bilaterally. No wheezes, rales, or rhonchi. GASTROINTESTINAL: Abdomen soft, non-tender, nondistended. Bowel sounds are active. No hepato-splenomegaly, or palpable masses. No guarding. SKIN: warm, intact with no suspicious lesions or rash, good texture and turgor. NEURO: awake, alert, and oriented to person, place and time. There were no obvious focal neurologic abnormalities. EXTREMITIES: Inability to fully extend the left 5th finger, specifically at the distal phalanx portion of the finger. Mild swelling to the distal phalanx of the left 5th finger. Cap refill normal. 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 Finger splint was applied. She was instructed to follow-up with hand specialist. Differential Diagnosis Differential diagnosis: Likely finger sprain, fracture of hand and other (phalanx fracture, Extensor tendon injury of the distal interphalangeal joint) Imaging Data Attestation: I personally reviewed and interpreted this imaging study as follows: Radiologist's impression: [facility] [address] [place] [address] XRay Report Signed Patient: Lisy Pandey : 1945 MR#: [id number] Age: 80 Acct:[id number] Loc: [facility] ADM Date: 08/19/[address]: Ordering Physician: Cheryl Calles APRN Date of Service: 08/19/25 Procedure(s): XR finger 5th LT min 2V Accession Number(s): [id number] cc: Cheryl Calles APRN; Dorothy Cloud DO~ EXAMINATION: XR finger 5th LT min 2V DATE: 08/19/2025 09:48 INDICATION: Twisting injury to the left fifth digit with decreased range of motion TECHNIQUE: Dorsal palmar, lateral and 2 oblique views of the left fifth digit were obtained COMPARISON: None FINDINGS: Diffuse osteopenia. Age-indeterminate swan neck deformity at the left fifth digit. No fractures. Chondrocalcinosis at the visualized aspect of the left wrist. A few additional tiny periarticular dystrophic calcifications at a few of the carpometacarpal and metacarpophalangeal joints. 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 IMPRESSION: 1. Age-indeterminate swan-neck deformity at the left fifth digit. No fracture. 2. 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 Reviewed, dictated and finalized at location A. Please be advised this is a medical document. It is intended for wvgs-lu-nzlh communication. It is written in medical language and may contain unfamiliar abbreviations or verbiage. Medical documents are intended to carry relevant information, facts as evident, and the clinical opinion of the practitioner at the time of the encounter. This report may have been done utilizing a voice recognition system. Attempts have been made to correct errors. However, there may be uncorrected grammatical, spelling, and recognition errors present. The file time of this note does not necessarily represent the time of service. Dictated By: Shankar Smyth MD 08/19/25 0952 Signed By: <Electronically signed by Shankar Smyth MD in OV> 08/19/25 0970 Critical Care Time Critical Care Time Critical Care Time: No Discharge Plan Discharge Clinical Impression: Mallet deformity of left little finger Patient Disposition: Home Condition: Stable Instructions: P.R.I.C.E. Treatment (ED), Tendon Rupture (ED), Tendon Repair (DC) Additional Instructions: Use the RICE method at home. May take ibuprofen and/or Tylenol if needed. Follow-up with specialist. Patient Language: Turkish Prescriptions: No Action mycophenolate sodium 360 mg tablet,delayed release (DR/EC) 720 mg PO DAILY Toujeo Max U-300 SoloStar 300 unit/mL (3 mL) insulin pen 34 unit subcut DAILY insulin aspart U-100 [Novolog FlexPen U-100 Insulin] 100 unit/mL (3 mL) insulin pen 12 unit subcut TID Patient Comments: Sliding Scale 8-12U daily tacrolimus 1 mg capsule 1.5 mg PO DAILY prednisone 2.5 mg tablet 2.5 mg PO DAILY multivitamin Tablet 1 tablet PO DAILY PreserVision AREDS 14,320-226-200 kdca-ru-wfqg capsule 1 cap PO BID cholecalciferol (vitamin D3) 25 mcg (1,000 unit) capsule 1,000 unit PO BID methylprednisolone acetate 80 mg/mL suspension 80 mg intra-articular ONCE Qty: 1 0RF acetaminophen 500 mg capsule 500 mg PO Q6H PRN (Reason: pain) Qty: 20 0RF calcitonin (salmon) 200 unit/actuation spray,non-aerosol 1 spray intranasal (ALT) DAILY Qty: 3.7 5RF amlodipine 10 mg tablet See Rx Instructions .ROUTE .COMPLEX Qty: 90 1RF Dose Instruction: Take 1 tablet by mouth once daily Rx Instructions: Take 1 tablet by mouth once daily simvastatin 20 mg tablet 20 mg PO DAILY Qty: 90 1RF losartan 100 mg tablet See Rx Instructions .ROUTE .COMPLEX Qty: 90 1RF Dose Instruction: Take 1 tablet by mouth once daily Rx Instructions: Take 1 tablet by mouth once daily levothyroxine [Euthyrox] 50 mcg tablet See Rx Instructions .ROUTE .COMPLEX Qty: 90 1RF Dose Instruction: Take 1 tablet by mouth once daily Rx Instructions: Take 1 tablet by mouth once daily Follow-up/Referrals: Rosette Liu MD [Physician, Plastic Surgery] Dorothy Cloud DO [Primary Care Provider, [facility]] Time of Disposition: 10:04
[2025-08-19 09:20] VITALS: BP 164/60; PULSE 78; RESP 16; TEMP 36.6; O2SAT 100
== END 2025-08-19 10:09 | disposition home or self-care (01) ==
PROVIDERS: Emergency Provider Nurse Practitioner; PCP Family Medicine
DX: M20.012 Mallet finger of left finger(s) (principal); I13.10 Hypertensive heart and chronic kidney disease without heart failure, with stage 1 through stage 4 chronic kidney disease, or unspecified chronic kidney disease; E11.22 Type 2 diabetes mellitus with diabetic chronic kidney disease; N18.9 Chronic kidney disease, unspecified; Z79.4 Long term (current) use of insulin; E03.9 Hypothyroidism, unspecified; E78.2 Mixed hyperlipidemia; I35.8 Other nonrheumatic aortic valve disorders; Z86.718 Personal history of other venous thrombosis and embolism; M81.0 Age-related osteoporosis without current pathological fracture; Z94.0 Kidney transplant status
CPT/HCPCS: 29130; 73140; 99213; G0463